=== PATIENT | female | born 1950 | race Caucasian/White ===

== ENCOUNTER 2018-08-04 15:28 | Emergency (ER) | payer MEDICARE, OTHER ==
--- OUTSIDE RECORDS SUMMARY | 2018-08-04 15:32 | XMS REPORT | Clinical Summary ---
:1950 Author Organization [facility] Address [address] [place] [address] Care Team Providers Name Role Phone Rosanne Primary Care Provider Allergies Active Allergy Reactions Severity Noted Date Comments Iodinated Contrast- Oral And Iv Dye Swelling High 08/27/2016 Morpholine Analogues Swelling High 08/27/2016 Medications Medication Sig Dispensed Refills Start Date End Date Status lisinopril Take 10 mg by 0 Active (PRINIVIL,ZESTRIL) 10 mouth daily. MG tablet albuterol (VOSPIRE ER) Take 8 mg by mouth 0 Active 8 MG 12 hr tablet every 12 (twelve) hours. traMADol (ULTRAM) 50 Take 1 tablet (50 10 tablet 0 08/27/2016 Active mg tablet mg total) by mouth every 6 (six) hours as needed for Pain (WARNING CAUSES SEDATION) for up to 10 doses. Active Problems Not on file Social History Tobacco Use Types Packs/Day Years Used Date Current Every Day Smoker Alcohol Use Drinks/Week oz/Week Comments No Sex Assigned at Date Recorded Not on file Job Start Date Occupation Industry Not on file Not on file Not on file Travel History Travel Start Travel End No recent travel history available. Last Filed Vital Signs Not on file Plan of Treatment Not on file Results Not on fileafter 08/03/2017 Insurance Payer Benefit Plan / Group Subscriber ID Type Phone Address MEDICARE MEDICARE PART B xxxxxxxxxx Medicare [employer] MEDICAID MEDICAID [employer] xxxxxxxxx MEDICAID MEDICAID [facility] xxxxxxxxx Medicaid (Home) [place] [address]
--- OUTSIDE RECORDS SUMMARY | 2018-08-04 15:32 | XMS REPORT | Clinical Summary ---
:1950 Author Organization [facility] Address [address] [place] [id number] Care Team Providers Name Role Phone Charleen Young MD Primary Care Provider Allergies Active Allergy Reactions Severity Noted Date Comments Iodinated Contrast- Other (See Comments) High Childhood Allergy - Oral And Iv Dye Unknown Reaction Iodine Itching Low 06/16/2005 IV only Morphine Itching Medium 05/14/2016 And swelling in injection site Morpholine Analogues Swelling High 08/27/2016 Medications Medication Sig Dispensed Refills Start End Status Date Date tiotropium (SPIRIVA) Place 1 puff (1 20 capsule 1 06/09/19 Active 18 mcg per inhalation capsule total) 19 capsule into inhaler and inhale once daily. budesonide-formoterol Inhale 2 puffs 2 1 Inhaler 1 06/09/19 Active (SYMBICORT) 160-4.5 (two) times a 19 mcg/actuation inhaler day. gabapentin (NEURONTIN) Take 1 capsule 90 capsule 11 07/08/192 Active 300 mg (300 mg total) 19 020 capsuleIndications: by mouth 3 Chronic pain syndrome (three) times a day. lisinopril Take 1 tablet 360 tablet 0 07/08/1907/06/2 Active (PRINIVIL,ZESTRIL) 20 (20 mg total) by 19 020 mg tablet mouth every morning. omeprazole (PriLOSEC) Take 2 capsules 60 capsule 2 07/08/192 Active 20 MG capsule (40 mg total) by 19 019 mouth daily for 60 days. mirtazapine (REMERON) Take 1 tablet 60 tablet 0 07/08/1909/05/2 Active 15 MG tablet (15 mg total) by 19 019 mouth nightly for 60 days. calcium Chew 1 tablet 60 tablet 2 07/08/19 Active carbonate-vitamin D3 daily for 60 19 019 600 mg (1,500 mg)-800 days. unit tablet,chewable nebulizer and 1 Device as 1 each 0 07/19/19 Active compressor (PORTABLE needed (copd 19 NEBULIZER SYSTEM) exacerbation). device ipratropium-albuterol Take 3 mL by 27 mL 4 07/29/19 Active (DUO-NEB) 0.5-2.5 mg/3 nebulization 4 19 019 mL nebulizer (four) times a day as needed for wheezing or shortness of breath for up to 14 days. lisinopril Take 10 mg by 0 Discontinued (PRINIVIL,ZESTRIL) 10 mouth every 018 mg tablet morning. budesonide-formoterol Inhale 2 puffs 0 04/06/20 Discontinued (SYMBICORT) 160-4.5 as needed. 17 018 mcg/actuation inhaler gabapentin (NEURONTIN) Take 1 capsule 90 capsule 11 06/18/19 Discontinued 300 mg (300 mg total) 18 018 capsuleIndications: by mouth 3 Chronic pain syndrome (three) times a day. FLUoxetine (PROzac) 20 Take 2 capsules 60 capsule 11 06/18/19 Discontinued MG capsuleIndications: (40 mg total) by 18 018 Anxiety mouth daily. calcium Take 1 tablet by 60 tablet 11 06/19/19 Discontinued carbonate-vitamin D3 mouth 2 (two) 18 018 (OYSTER SHELL times a day with CALCIUM-VIT D3) 500 meals. mg-200 unit per tablet tiotropium (SPIRIVA) Place 1 capsule 0 Discontinued 18 mcg per inhalation into inhaler and 018 capsule inhale once daily. potassium chloride 20 Take 20 mEq by 0 Discontinued mEq tablet extended mouth daily. 018 release FLUoxetine (PROzac) 20 Take 2 capsules 60 capsule 11 08/13/19 Discontinued MG capsuleIndications: (40 mg total) by 18 018 Anxiety mouth daily. tiotropium (SPIRIVA) Place 1 puff (1 20 capsule 1 08/13/19 Discontinued 18 mcg per inhalation capsule total) 18 018 capsule into inhaler and inhale once daily. lisinopril Take 1 tablet 90 tablet 1 08/13/19 Discontinued (PRINIVIL,ZESTRIL) 10 (10 mg total) by 18 018 mg tablet mouth every morning. budesonide-formoterol Inhale 2 puffs 2 1 Inhaler 1 08/13/19 Discontinued (SYMBICORT) 160-4.5 (two) times a 18 018 mcg/actuation inhaler day. nicotine (NICODERM CQ) Place 1 patch on 30 patch 0 08/13/19 21 mg/24 hr the skin daily 18 018 for 30 days. HYDROcodone-acetaminop Take 1 tablet by 30 tablet 0 08/13/19 hen (NORCO) 5-325 mg mouth every 8 18 018 per tablet (eight) hours as needed for moderate pain for up to 10 days. Max Daily Amount: 3 tablets traZODone (DESYREL) 50 Take 1 tablet 30 tablet 0 08/13/19 MG tablet (50 mg total) by 18 018 mouth nightly for 30 days. gabapentin (NEURONTIN) Take 1 capsule 90 capsule 11 09/24/19 Discontinued 300 mg (300 mg total) 18 019 capsuleIndications: by mouth 3 Chronic pain syndrome (three) times a day. budesonide-formoterol Inhale 2 puffs 2 0 Discontinued (SYMBICORT) 160-4.5 (two) times a 018 mcg/actuation inhaler day. amLODIPine (NORVASC) 5 Take 1 tablet (5 30 tablet 0 12/07/19 Discontinued mg tablet mg total) by 18 018 mouth daily for 30 days. aspirin 325 MG tablet Take 0.5 tablets 15 tablet 0 12/07/19 (162 mg total) 18 018 by mouth daily for 30 days. atorvastatin (LIPITOR) Take 1 tablet 30 tablet 0 12/07/19 Discontinued 10 MG tablet (10 mg total) by 18 018 mouth nightly for 30 days. ferrous sulfate 325 Take 1 tablet 60 tablet 0 12/07/19 Discontinued (65 FE) MG tablet (325 mg total) 18 018 by mouth 2 (two) times a day with meals for 30 days. fluconazole (DIFLUCAN) Take 1 tablet 12 tablet 0 12/07/19 Discontinued 100 MG tablet (100 mg total) 18 018 by mouth daily for 12 days. ipratropium-albuterol Take 3 mL by 360 mL 0 12/07/19 Discontinued (DUO-NEB) 0.5-2.5 nebulization 18 018 mg/mL nebulizer every 6 (six) hours as needed for wheezing for up to 30 days. traZODone (DESYREL) 50 Take 1 tablet 30 tablet 0 12/07/19 MG tablet (50 mg total) by 18 018 mouth nightly for 30 days. pantoprazole Take 1 tablet 30 tablet 0 12/07/19 Discontinued (PROTONIX) 20 MG EC (20 mg total) by 18 018 tablet mouth daily for 30 days. methylPREDNISolone follow package 21 tablet 0 12/07/19 Discontinued (MEDROL DOSEPAK) 4 mg directions 18 018 tablet pantoprazole Take 2 tablets 120 tablet 0 12/07/19 Discontinued (PROTONIX) 20 MG EC (40 mg total) by 18 018 tablet mouth 2 (two) times a day for 30 days. budesonide-formoterol Inhale 2 puffs 2 1 Inhaler 1 12/10/19 Discontinued (SYMBICORT) 160-4.5 (two) times a 18 018 mcg/actuation inhaler day. tiotropium (SPIRIVA) Place 1 puff (1 20 capsule 1 12/10/19 Discontinued 18 mcg per inhalation capsule total) 18 018 capsule into inhaler and inhale once daily. amLODIPine (NORVASC) 5 Take 1 tablet (5 30 tablet 0 12/10/19 mg tablet mg total) by 18 018 mouth daily for 30 days. omeprazole (PriLOSEC) Take 1 capsule 30 capsule 1 12/10/19 40 MG capsule (40 mg total) by 18 018 mouth daily for 60 days. methylPREDNISolone follow package 21 tablet 0 12/10/19 (MEDROL DOSEPAK) 4 mg directions 18 018 tablet atorvastatin (LIPITOR) Take 1 tablet 30 tablet 0 12/10/19 20 MG tablet (20 mg total) by 18 018 mouth nightly for 30 days. fluconazole (DIFLUCAN) Take 1 tablet 12 tablet 0 12/10/19 100 MG tablet (100 mg total) 18 018 by mouth daily for 12 days. ferrous sulfate 325 Take 1 tablet 60 tablet 0 12/10/19 (65 FE) MG tablet (325 mg total) 18 018 by mouth 2 (two) times a day with meals for 30 days. lisinopril Take 1 tablet 360 tablet 0 12/10/19 Discontinued (PRINIVIL,ZESTRIL) 20 (20 mg total) by 18 019 mg tablet mouth every morning. lidocaine (LIDODERM) 5 Place 1 patch on 30 patch 0 12/10/19 % the skin daily 18 018 for 30 days. Remove & Discard patch within 12 hours or as directed by MD ipratropium-albuterol Take 3 mL by 360 mL 0 12/10/19 (DUO-NEB) 0.5-2.5 nebulization 18 018 mg/mL nebulizer every 6 (six) hours as needed for wheezing for up to 30 days. lisinopril TAKE 1 TABLET BY 90 tablet 1 02/19/20 Discontinued (PRINIVIL,ZESTRIL) 10 MOUTH ONCE DAILY 18 019 mg tablet IN THE MORNING tiotropium (SPIRIVA) Place 1 puff (1 20 capsule 1 02/28/20 Discontinued 18 mcg per inhalation capsule total) 18 019 capsule into inhaler and inhale once daily. budesonide-formoterol Inhale 2 puffs 2 1 Inhaler 1 02/28/20 Discontinued (SYMBICORT) 160-4.5 (two) times a 18 019 mcg/actuation inhaler day. esomeprazole (NexIUM) Take 1 capsule 30 capsule 11 06/09/19 Discontinued 40 MG capsule (40 mg total) by 19 019 mouth daily before breakfast. acetaminophen-codeine Take 1 tablet by 20 tablet 0 06/09/19 (TYLENOL WITH CODEINE mouth every 4 19 019 #3) 300-30 mg per (four) hours as tablet needed for moderate pain for up to 7 days. budesonide-formoterol Inhale 2 puffs 2 1 Inhaler 1 06/09/19 Discontinued (SYMBICORT) 160-4.5 (two) times a 19 019 mcg/actuation inhaler day. esomeprazole (NexIUM) Take 1 capsule 30 capsule 11 06/09/19 Discontinued 40 MG capsule (40 mg total) by 019 mouth daily before breakfast. omeprazole (PriLOSEC) Take 2 capsules 60 capsule 2 06/09/19 Discontinued 20 MG capsule (40 mg total) by 019 mouth daily for 60 days. fluconazole (DIFLUCAN) Take 1 tablet 7 tablet 0 06/09/19 150 MG tablet (150 mg total) 019 by mouth daily for 7 days. gabapentin (NEURONTIN) Take 1 capsule 90 capsule 11 06/11/19 Discontinued 300 mg (300 mg total) capsuleIndications: by mouth 3 Chronic pain syndrome (three) times a day. ibuprofen Take 800 mg by 0 04/11/20 Discontinued (ADVIL,MOTRIN) 800 MG mouth. 18 019 tablet ibuprofen TK 1 T PO Q 0 04/12/20 Discontinued (ADVIL,MOTRIN) 800 MG EIGHT HOURS 18 019 tablet traMADol (ULTRAM) 50 Take 50 mg by 0 08/28/19 Discontinued mg tablet mouth. 17 019 traMADol (ULTRAM) 50 TK 1 T PO EVERY 0 04/12/20 Discontinued mg tablet 6 HOURS 18 019 NEEDED FOR PAIN budesonide-formoterol Inhale 2 puffs. 0 04/06/20 Discontinued (SYMBICORT) 160-4.5 17 019 mcg/actuation inhaler ipratropium-albuterol Take 3 mL by 27 mL 1 07/08/19 Discontinued (DUO-NEB) 0.5-2.5 nebulization 4 19 019 mg/mL nebulizer (four) times a day as needed for wheezing or shortness of breath for up to 14 days. fexofenadine (JOSE) Take 2 tablets 14 tablet 0 07/08/19 60 MG tablet (120 mg total) 19 019 by mouth daily for 7 days. ipratropium-albuterol Take 3 mL by 27 mL 1 07/22/19 Discontinued (DUO-NEB) 0.5-2.5 mg/3 nebulization 4 19 019 mL nebulizer (four) times a day as needed for wheezing or shortness of breath for up to 14 days. ipratropium-albuterol Take 3 mL by 27 mL 1 07/22/19 Discontinued (DUO-NEB) 0.5-2.5 mg/3 nebulization 4 19 019 mL nebulizer (four) times a day as needed for wheezing or shortness of breath for up to 14 days. ipratropium-albuterol Take 3 mL by 27 mL 1 07/22/19 Discontinued (DUO-NEB) 0.5-2.5 mg/3 nebulization 4 19 019 mL nebulizer (four) times a day as needed for wheezing or shortness of breath for up to 14 days. Hospital, Clinic, Ordered Dose Route Frequency Start Date End Date Status or Other Facility Administered Medication ipratropium 0.5 mg nebu every 6 hours 06/09/2018 Discontinued (ATROVENT) 0.02 % PRN 9 nebulizer solution 0.5 mgIndications: Chronic obstructive pulmonary disease, unspecified COPD type (HCC) Active Problems Problem Noted Date COPD exacerbation 12/04/2017 Microcytic anemia 11/29/2017 Overview: Added automatically from request for surgery [id number] Chronic bronchitis 06/17/2017 Essential hypertension 06/17/2017 Chronic pain syndrome 06/17/2017 Pure hypercholesterolemia 06/17/2017 Anxiety 06/17/2017 Tobacco use 06/17/2017 Other chest pain 06/10/2017 Calculus of ureter 03/11/2017 Overview: Overview: Added automatically from request for surgery [id number] Shoulder injury 02/03/2017 Overdose 06/03/2016 Back pain 01/26/2016 Closed fracture of nasal bone with routine healing 01/23/2016 Closed fracture of orbital floor 01/23/2016 Fracture of spine, lumbar, without spinal cord injury, closed 01/23/2016 UTI (urinary tract infection) 09/07/2015 Fracture of humerus 06/25/2005 Overview: Overview: right ICD10 Diagnosis Term Long Line [employer] Utility Osteoporosis 06/25/2005 Overview: Overview: ICD10 Diagnosis Term Long Line [employer]ster Utility 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/2005 Overview: Overview: Left prosthesis Anemia 06/25/2005 Overview: Overview: ICD10 Diagnosis Term Long Line [employer] Utility Osteoarthritis of shoulder 06/16/2005 Overview: Overview: ICD10 Diagnosis Term Long Line [employer] Utility Chest pain 06/16/2005 Overview: Overview: ICD10 Diagnosis Term Long Line [employer] Utility Resolved Problems Problem Noted Date Resolved Date Chest pain in adult 11/29/2017 12/06/2017 Encounters Date Type Specialty Care Team Description 07/28/2018 Orders Only Internal Medicine Charleen Young MD 07/21/2018 Orders Only Internal Medicine Charleen Young MD 07/18/2018 Orders Only Internal Medicine Hector, Chronic obstructive Charleen Randall, pulmonary disease with acute exacerbation (HCC) (Primary Dx) 07/15/2018 Telephone Endocrinology Fadumo Jennings 07/07/2018 Lab Lab Se[facility] Guajardo Fatigue, unspecified MD Nelida type 07/07/2018 Office Visit Internal Medicine Hector, Need for pneumococcal vaccine (Primary Dx); Charleen Randall, Chronic pain syndrome; Age-related osteoporosis without current pathological fracture; Fatigue, unspecified type; Mixed simple and mucopurulent chronic bronchitis (HCC); Primary osteoarthritis involving multiple joints; Recurrent falls 06/11/2018 Orders Only Internal Medicine Lucia Mccabe, Chronic pain syndrome CT 06/09/2018 Office Visit Internal Medicine Hector, Chest pain, unspecified type (Primary Dx); Charleen Randall, Gastritis without bleeding, unspecified chronicity, unspecified gastritis type; Anemia, unspecified type; Benign essential HTN; Thyroid disorder screen; Chronic obstructive pulmonary disease, unspecified COPD type (HCC) 02/27/2018 Orders Only Internal Medicine Charleen Young MD 02/25/2018 Telephone Internal Medicine Dyana Gloria MA 02/18/2018 Refill Internal Medicine Charleen Young MD 02/17/2018 Telephone Internal Medicine Cezar Llamas MA 01/31/2018 Telephone Internal Medicine Dyana Gloria MA 12/13/2017 Lab Lab Se[facility] Gu[facility]ardo Antidepressant type MD Nelida abuse, continuous (Primary Dx) 12/11/2017 Telephone Gastroenterology Aster Alfaro, WINDY 12/10/2017 Telephone Internal Medicine Cezar Llamas MA 12/09/2017 Office Visit Internal Medicine Hector, Chronic pain syndrome ( Primary Dx); Charleen Randall, Pure hypercholesterolemia; Anxiety; Essential hypertension; COPD exacerbation 12/09/2017 Documentation Internal Medicine Cezar Llamas MA 12/03/2017 Anesthesia Event Gastroenterology Shelli Ferreira, [employer]AND [employer]NER 12/03/2017 Surgery Gastroenterology Fabian Sarmiento EGD w/ bx and MD germain 11/29/2017 - Hospital Encounter Cardiology Ana Bravo Chest pain in adult (Primary Dx); 12/06/2017 MD Verna COPD exacerbation; Darlene, Palpitation; Deshawn Vigil MD Microcytic anemia 09/23/2017 Office Visit Internal Medicine [place]ector, Polysubstance abuse ( Primary Dx); Charleen Randall, Chronic pain syndrome Noami Salgado MD 08/19/2017 Hospital Encounter Pulmonology Serena Guajardo Chronic bronchitisNelida MD unspecified chronic bronchitis type 08/19/2017 Hospital Encounter Pulmonology Serena Guajardo MD 08/19/2017 Hospital Encounter Pulmonology Serena Guajardo MD 08/19/2017 Hospital Encounter Pulmonology Serena Guajardo Chronic bronchitisNelida MD unspecified chronic bronchitis type 08/16/2017 Documentation Internal Medicine Charleen Young MD 08/16/2017 Telephone Internal Medicine Cezar Llamas MA 08/13/2017 Telephone Internal Medicine Cezar Llamas MA 08/12/2017 Office Visit Internal Medicine [place]ector, Essential hypertension ( Primary Dx); Charleen Randall, Anxiety; Chronic pain syndrome after 08/03/2017 Immunizations Name Dates Previously Given Next Due FLUZONE HIGH-DOSE PF 02/16/2017 Pneumococcal Conjugate 13-Valent 07/07/2018 Pneumococcal Polysaccharide 07/04/2016 Td, Unspecified 01/23/2016 Family History Medical History Relation Name Comments Heart disease Brother Cancer Father Heart disease Mother Cancer Sister Relation Name Status Comments Brother Father Mother Sister Social History Tobacco Use Types Packs/Day Years Used Date Current Every Day Smoker Cigarettes 1 52 Smokeless Tobacco: Never Used Tobacco Cessation: Ready to Quit: No; Counseling Given: No Comments: 1 pack over 3 days Alcohol Use Drinks/Week oz/Week Comments No Sex Assigned at Date Recorded Not on file Job Start Date Occupation Industry Not on file Not on file Not on file Travel History Travel Start Travel End No recent travel history available. Last Filed Vital Signs Vital Sign Reading Time Taken Blood Pressure 135/92 07/07/2018 1:14 PM CDT Pulse 100 07/07/2018 1:14 PM CDT Temperature 36.7 C (98 F) 07/07/2018 1:14 PM CDT Respiratory Rate 18 12/09/2017 2:52 PM CDT Oxygen Saturation 98% 07/07/2018 1:14 PM CDT Inhaled Oxygen Concentration - - Weight 57.6 kg (127 lb) 07/07/2018 1:14 PM CDT Height 160 cm (5' 3") 07/07/2018 1:14 PM CDT Body Mass Index 22.5 07/07/2018 1:14 PM CDT Plan of Treatment Date Type Specialty Care Team Description 09/01/2018 Office Visit Internal Medicine Naomi Chan MD [address] [address] Health Maintenance Due Date Last Done Comments DXA SCAN 1950 BREAST CANCER SCREENING 09/27/2001 COLON CANCER SCREENING 09/27/2001 SHINGLES VACCINES (#1) 09/27/2001 INFLUENZA VACCINE 11/13/2018 02/16/2017 65+ PNEUMOCOCCAL VACCINE (2 of 2 - PPSV23) 07/04/2021 07/07/2018, 07/04/2016 PNEUMOCOCCAL POLYSACCHARIDE VACCINE AGE 65 Completed 07/04/2016 AND OVER Implants Implanted Type Area [employer] Device Shelf Model / Identifier Expiration Serial / Date Lot Stent Uretl S-Flx Kwart Retro-Inject 6fr 24cm - [id number] Peripheral or Right: [employer] 01/31/2020 [id number] / Implanted: Qty: 1 on 06/14/2017 by Octaviano De MD Biliary Stents N/A / [id number] Procedures Procedure Name Priority Date/Time Associated Comments Diagnosis THYROID STIMULATING HORMONE Routine 07/07/2018 Fatigue, Results for 2:04 PM CDT unspecified type this procedure are in the results section. COMPREHENSIVE METABOLIC PANEL Routine 07/07/2018 Fatigue, Results for 2:04 PM CDT unspecified type this procedure are in the results section. CBC WITH PLATELET AND Routine 07/07/2018 Fatigue, Results for DIFFERENTIAL 2:04 PM CDT unspecified type this procedure are in the results section. URINE DRUGS OF ABUSE SCREEN Routine 12/13/2017 Antidepressant Results for 2:35 PM CDT type abuse, this continuous procedure are in the results section. ZZESTIMATED GFR Routine 12/05/2017 Results for 4:00 AM CDT this procedure are in the results section. BASIC METABOLIC PANEL Routine 12/05/2017 Results for 4:00 AM CDT this procedure are in the results section. HC COMPLETE BLD COUNT W/AUTO Routine 12/05/2017 Results for DIFF 3:49 AM CDT this procedure are in the results section. CD 4 SUBSET Routine 12/05/2017 Results for 3:49 AM CDT this procedure are in the results section. HIV-1 RNA, QUALITATIVE TMA Routine 12/05/2017 Results for 3:49 AM CDT this procedure are in the results section. NM LUNG VENTILATION PERFUSION Routine 12/03/2017 Results for 6:14 PM CDT this procedure are in the results section. SURGICAL PATHOLOGY REQUEST Routine 12/03/2017 Results for 9:26 AM CDT this procedure are in the results section. CYTOLOGY (NON-GYNECOLOGICAL) Routine 12/03/2017 Results for REQUEST 8:17 AM CDT this procedure are in the results section. FUNGUS SMEAR Routine 12/03/2017 Results for 8:17 AM CDT this procedure are in the results section. ESOPHAGOGASTRODUODENOSCOPY 12/03/2017 Microcytic anemia (EGD) 8:00 AM CDT Chest pain in adult Special Needs FELLOW-KG XR ABDOMEN 1 VW Routine 12/02/2017 8:48 Results for this PORTABLE PM CDT procedure are in the results section. US ABDOMEN COMPLETE Routine 12/02/2017 4:45 Results for this PM CDT procedure are in the results section. GGT Routine 12/02/2017 1:55 Results for this PM CDT procedure are in the results section. TOTAL IRON BINDING Routine 12/02/2017 1:55 Results for this CAPACITY PM CDT procedure are in the results section. FERRITIN LEVEL Routine 12/02/2017 1:55 Results for this PM CDT procedure are in the results section. HC COMPLETE BLD COUNT Routine 12/02/2017 1:55 Results for this W/AUTO DIFF PM CDT procedure are in the results section. LIPASE LEVEL Routine 12/02/2017 1:55 Results for this PM CDT procedure are in the results section. ZZESTIMATED GFR Routine 12/02/2017 5:32 Results for this AM CDT procedure are in the results section. BASIC METABOLIC PANEL Routine 12/02/2017 5:32 Results for this AM CDT procedure are in the results section. ZZESTIMATED GFR Routine 12/01/2017 5:39 Results for this AM CDT procedure are in the results section. BASIC METABOLIC PANEL Routine 12/01/2017 5:39 Results for this AM CDT procedure are in the results section. NM MYOCARDIAL PERFUSION Routine 11/30/2017 1:40 Results for this STRESS ONLY PM CDT procedure are in the results section. CV STRESS TEST NUCLEAR Routine 11/30/2017 1:40 Results for this CARDIO PM CDT procedure are in the results section. ZZESTIMATED GFR Routine 11/30/2017 6:36 Results for this AM CDT procedure are in the results section. BASIC METABOLIC PANEL Routine 11/30/2017 6:36 Results for this AM CDT procedure are in the results section. TROPONIN Timed 11/30/2017 12:58 Results for this AM CDT procedure are in the results section. TROPONIN Timed 11/29/2017 4:00 Results for this PM CDT procedure are in the results section. URINE DRUGS OF ABUSE Routine 11/29/2017 1:44 Results for this SCREEN PM CDT procedure are in the results section. RESPIRATORY PATHOGEN Routine 11/29/2017 1:44 Results for this PANEL PM CDT procedure are in the results section. ZZESTIMATED GFR STAT 11/29/2017 11:35 Results for this AM CDT procedure are in the results section. B NATRIURETIC PEPTIDE STAT 11/29/2017 11:35 Results for this AM CDT procedure are in the results section. TROPONIN STAT 11/29/2017 11:35 Results for this AM CDT procedure are in the results section. COMPREHENSIVE METABOLIC STAT 11/29/2017 11:35 Results for this PANEL AM CDT procedure are in the results section. PARTIAL THROMBOPLASTIN STAT 11/29/2017 11:35 Results for this TIME (PTT) AM CDT procedure are in the results section. PROTHROMBIN TIME WITH STAT 11/29/2017 11:35 Results for this INR AM CDT procedure are in the results section. HC COMPLETE BLD COUNT STAT 11/29/2017 11:35 Results for this W/AUTO DIFF AM CDT procedure are in the results section. XR CHEST 1 VW PORTABLE STAT 11/29/2017 11:21 Results for this AM CDT procedure are in the results section. ECG 12-LEAD STAT 11/29/2017 10:53 Results for this AM CDT procedure are in the results section. SPIROMETRY PRE AND POST Routine 08/19/2017 12:24 Chronic bronchitis, Results for this BRONCHODILATORS, PM CDT unspecified chronic procedure are in DIFFUSION bronchitis type the results section. after 08/03/2017 Results CBC with platelet and differential (07/07/2018 2:04 PM CDT)Only the most recent of4 resultswithin the time period is included. WBC 4.4 3.8 - 10.8 Thousand/uL [facility] RBC 4.86 3.80 - 5.10 Million/uL [facility] HGB 13.1 11.7 - 15.5 g/dL [facility] HCT 40.5 35.0 - 45.0 % [facility] MCV 83.3 80.0 - 100.[address] [facility] MCH 27.0 27.0 - 33.[address] [facility] MCHC 32.3 32.0 - 36.0 g/dL [facility] RDW 14.3 11.0 - 15.0 % [facility] Platelet count 193 140 - 400 Thousand/uL [facility] MPV 9.8 7.5 - 12.5 fL [facility] Neutrophils, absolute 2,028 1,500 - 7,800 cells/uL [facility] Lymphocytes, absolute 1,795 850 - 3,900 cells/uL [facility] Monocytes, absolute 453 200 - 950 cells/uL [facility] Eosinophils, absolute 92 15 - 500 cells/uL [facility] Basophils, absolute 31 0 - 200 cells/uL [facility] Neutrophils 46.1 % [facility] Lymphocytes 40.8 % [facility] Monocytes 10.3 % [facility] Eosinophils 2.1 % [facility] Basophils + RC 0.7 % [facility] Specimen Blood Resulting Agency Comment Performing Organization Information: Site ID: [id number] Name: [facility] Address: [address] [place] [id number] Director: Tameka Carlin Performing Organization Address City/State/[facility] Phone Number [employer] [facility] [address] [place] [address] Thyroid stimulating hormone (07/07/2018 2:04 PM CDT) TSH 1.16 0.40 - 4.50 mIU/L [facility] Specimen Blood Resulting Agency Comment Performing Organization Information: Site ID: [id number] Name: [facility] Address: [address] [place] [id number] Director: Tameka Carlin Performing Organization Address City/[facility] [employer] Phone Number [employer] [place] [address] [place] [address] Comprehensive metabolic panel (07/07/2018 2:04 PM CDT)Only the most recent of2 resultswithin the time period is included. Glucose 108 (H) 65 - 99 mg/dL [facility] Comment: [facility] Fasting reference interval For someone without known diabetes, a glucose value between 100 and 125 mg/dL is consistent with prediabetes and should be confirmed with a follow-up test. BUN, whole blood 18 7 - 25 mg/dL [facility] Creatinine 1.03 (H) 0.50 - 0.99 [facility] Comment: mg/dL [place] For patients >49 years of age, the reference limit for Creatinine is approximately 13% higher for people identified as -Cuban. EGFR Non-Afr. Cuban 57 (L) > OR=60 [facility] mL/min/1.73m2 [place] EGFR 66 > OR=60 [facility] mL/min/1.73m2 [place] BUN/creatinine ratio 17 6 - 22 (calc) [facility] [place] Sodium 140 135 - 146 mmol/L [facility] [place] Potassium 4.2 3.5 - 5.3 mmol/L [facility] [place] Chloride 102 98 - 110 mmol/L [facility] [place] CO2 26 20 - 32 mmol/L [facility] [place] Calcium 9.5 8.6 - 10.4 mg/dL [facility] [place] Protein 7.4 6.1 - 8.1 g/dL [facility] [place] Albumin, S 4.0 3.6 - 5.1 g/dL [facility] Globulin, total 3.4 1.9 - 3.7 g/dL [facility] (calc) [place] Albumin/globulin ratio 1.2 1.0 - 2.5 (calc) [facility] Total bilirubin 0.4 0.2 - 1.2 mg/dL [facility] Alkaline phosphatase 167 (H) 33 - 130 U/L [facility] AST 33 10 - 35 U/L [facility] ALT 22 6 - 29 U/L [facility] Specimen Blood Resulting Agency Comment Performing Organization Information: Site ID: [id number] Name: Compliance [facility] Lab Address: [address] [place] [id number] Director: Tameka Carlin Performing Organization Address City/[facility] Phone Number [facility] [address] [place] [phone] Urine drugs of abuse screen (12/13/2017 2:35 PM CDT)Only the most recent of2 resultswithin the time period is included. Amphetamine screen, urine Negative [facility] DEPARTMENT OF PATHOLOGY AND GENOMIC MEDICINE Barbiturate screen, urine Negative [facility] DEPARTMENT OF PATHOLOGY AND GENOMIC MEDICINE Benzodiazepine screen, Positive (A) [facility] DEPARTMENT OF urine PATHOLOGY AND GENOMIC MEDICINE Cannabinoid screen, urine Negative [facility] DEPARTMENT OF PATHOLOGY AND GENOMIC MEDICINE Cocaine screen, urine Negative [facility] DEPARTMENT OF PATHOLOGY AND GENOMIC MEDICINE Methadone metabolite Negative [facility] DEPARTMENT OF (EDDP), urine PATHOLOGY AND GENOMIC MEDICINE Opiates screen, urine Negative [facility] DEPARTMENT OF PATHOLOGY AND GENOMIC MEDICINE Oxycodone screen, urine Negative [facility] DEPARTMENT OF PATHOLOGY AND GENOMIC MEDICINE Phencyclidine screen, urine Negative [facility] DEPARTMENT OF PATHOLOGY AND GENOMIC MEDICINE Tricyclic screen, urine Negative [facility] DEPARTMENT OF Comment: PATHOLOGY AND GENOMIC Drug screen minimum concentration of detectability MEDICINE Paapipskybjv8424 ng/mL Barbiturates 200 ng/mL Piexjtwrqqckkyw173 ng/mL Isnyawj142 ng/mL Tkxotiiki964 ng/mL Fxkewvc685 ng/mL Gqbtlfzdt414 ng/mL Phencyclidine 25 ng/mL Qblqiivyfckv55 ng/mL Xugkzimikh4724 ng/mL Negative test results indicates presumptive evidence of lack of clinically significant drug concentration in this urine specimen. Positive test results are presumptive evidence of clinically significant drug concentration in this urine specimen. Testing performed for medical purposes only. Specimen Urine Performing Organization Address City/[facility] Phone Number [facility] DEPARTMENT OF PATHOLOGY AND [address] [place] [phone] [employer] MEDICINE Estimated GFR (12/05/2017 4:00 AM CDT)Only the most recent of5 resultswithin the time period is included. GFR Non Af Amer 63 mL/min/1.73 m2 [facility] DEPARTMENT OF PATHOLOGY AND GENOMIC MEDICINE GFR Af Amer 76 mL/min/1.73 m2 [facility] DEPARTMENT OF Comment: PATHOLOGY AND GENOMIC Chronic kidney disease: <60 mL/min/1.73m2 MEDICINE Kidney failure: <15 mL/min/1.73m2 The estimated GFR is calculated from the IDMS-traceable Modification of Diet in Renal Disease Equation. The accuracy of the calculation is poor when the creatinine is normal. Calculated values >90 mL/min/1.73m2 are not reported. This equation has not been validated in children (<18 years), women, the elderly (>70 years), or ethnic groups other than Caucasians and Americans. Specimen Plasma specimen Performing Organization Address City/[facility] Phone Number [facility] DEPARTMENT OF PATHOLOGY AND [address] [place] [address] Basic metabolic panel (12/05/2017 4:00 AM CDT)Only the most recent of4 resultswithin the time period is included. Sodium 138 135 - 148 mEq/L [facility] DEPARTMENT OF PATHOLOGY AND GENOMIC MEDICINE Potassium 5.1 (H) 3.5 - 5.0 mEq/L [facility] DEPARTMENT OF PATHOLOGY AND GENOMIC MEDICINE Chloride 100 98 - 112 mEq/L [facility] DEPARTMENT OF PATHOLOGY AND GENOMIC MEDICINE CO2 24 24 - 31 mEq/L [facility] DEPARTMENT OF PATHOLOGY AND GENOMIC MEDICINE Anion gap 14@ANIO 7 - 15 mEq/L [facility] DEPARTMENT OF PATHOLOGY AND GENOMIC MEDICINE BUN 35 (H) 8 - 23 mg/dL [facility] DEPARTMENT OF PATHOLOGY AND GENOMIC MEDICINE Creatinine 0.9 0.5 - 0.9 mg/dL [facility] DEPARTMENT OF PATHOLOGY AND GENOMIC MEDICINE Glucose 253 (H) 65 - 99 mg/dL [facility] DEPARTMENT OF PATHOLOGY AND GENOMIC MEDICINE Calcium 8.8 8.8 - 10.2 mg/dL [facility] DEPARTMENT OF PATHOLOGY AND GENOMIC MEDICINE Specimen Plasma specimen Performing Organization Address City/[facility] Facilitycode Phone Number [facility] PATHOLOGY AND [address] [place] [phone] [facility] HIV-1 RNA, qualitative TMA (12/05/2017 3:49 AM CDT) HIV-1 RNA, qualitative Nonreactive Nonreactive [facility] DEPARTMENT OF TMA PATHOLOGY AND GENOMIC MEDICINE HIV-1 RNA, qualitative See link below for PDF [facility] DEPARTMENT OF TMA Lab ReportComment: Case PATHOLOGY AND GENOMIC Number: [id number] MEDICINE Specimen Plasma specimen Performing Organization Address City/State/Zipcode Phone Number [facility] DEPARTMENT OF PATHOLOGY AND [address] [place] [address] GENOMIC MEDICINE CD 4 subset (12/05/2017 3:49 AM CDT) CD4% 40 37 - 57 % [facility] DEPARTMENT OF PATHOLOGY AND GENOMIC MEDICINE CD4 absolute count 368 (L) 488 - 1,340 ul [facility] DEPARTMENT OF PATHOLOGY AND GENOMIC MEDICINE CD4 subset See link below for PDF [facility] DEPARTMENT OF PATHOLOGY Lab ReportComment: Case AND GENOMIC MEDICINE Number: [id number] Specimen Blood Performing Organization Address City/State/Zipcode Phone Number [facility] DEPARTMENT OF PATHOLOGY AND [address] [place] [address] [facility] NM Lung Ventilation Perfusion (12/03/2017 6:14 PM CDT) Narrative Performed At PROCEDURE:NM LUNG VENTILATION PERFUSION [facility] INDICATION:Shortness of breath. COMPARISON:Chest x-ray dated 11/29/2017. TECHNIQUE:Planar ventilation images were acquired after the inhalation of 15 mCi of Xe-133 gas. Planar perfusion images were acquired after the IV administration of 5 mCi of Tc-99m MAA. FINDINGS:Ventilation images demonstrate decreased ventilation to the lung periphery. Washout images demonstrate no gas trapping.Perfusion images demonstrate decreased perfusion to the lung periphery, matching the ventilation images.No mismatched defects. IMPRESSION: 1.Low to low intermediate probability for acute PE. 2.Correlation with a more current chest x-ray is suggested.If new infiltrates are present, scan findings could reflect lung infarction.If no new infiltrates are present, findings could reflect sequela of chronic PE. [facility]-[id number] Procedure Note Interface, Radiology Results Incoming - 12/03/2017 7:12 PM CDT PROCEDURE: NM LUNG VENTILATION PERFUSION INDICATION: Shortness of breath. COMPARISON: Chest x-ray dated 11/29/2017. TECHNIQUE: Planar ventilation images were acquired after the inhalation of 15 mCi of Xe-133 gas. Planar perfusion images were acquired after the IV administration of 5 mCi of Tc-99m MAA. FINDINGS: Ventilation images demonstrate decreased ventilation to the lung periphery. Washout images demonstrate no gas trapping. Perfusion images demonstrate decreased perfusion to the lung periphery, matching the ventilation images. No mismatched defects. IMPRESSION: 1. Low to low intermediate probability for acute PE. 2. Correlation with a more current chest x-ray is suggested. If new infiltrates are present, scan findings could reflect lung infarction. If no new infiltrates are present, findings could reflect sequela of chronic PE. [facility]-[id number] Performing Organization Address City/[facility]/[place] [address] Surgical pathology request (12/03/2017 9:26 AM CDT) [facility] DEPARTMENT OF PATHOLOGY AND GENOMIC MEDICINE Surgical pathology report See link below for PDF [facility] DEPARTMENT OF Lab Report PATHOLOGY AND GENOMIC MEDICINE Result status This is Final Report [facility] DEPARTMENT OF for [id number] PATHOLOGY AND GENOMIC MEDICINE Performing Organization Address [facility] Phone Number [facility] DEPARTMENT OF PATHOLOGY AND [address] [place] [address] GENOMIC MEDICINE Fungus smear (12/03/2017 8:17 AM CDT) Fungus smear Many budding yeast with pseudohyphae seen [facility] DEPARTMENT OF PATHOLOGY Comment: AND GENOMIC MEDICINE Specimen Information Specimen Source: esophageal brush Specimen Site: esophageal brushing Specimen Esophageal brush Performing Organization Address [facility] Phone Number [facility] DEPARTMENT OF PATHOLOGY AND [address] [place] [address] GENOMIC MEDICINE Cytology (non-gynecological) request (12/03/2017 8:17 AM CDT) [facility] DEPARTMENT OF PATHOLOGY AND GENOMIC MEDICINE Cytology See link below for PDF [facility] DEPARTMENT OF (non-gynecological) report Lab Report PATHOLOGY AND GENOMIC MEDICINE Result status This is Final Report [facility] DEPARTMENT for [id number] PATHOLOGY AND GENOMIC MEDICINE Performing Organization Address [facility] Facility[facility] Phone Number [facility] DEPARTMENT OF PATHOLOGY AND [address] [place] [address] GENOMIC MEDICINE XR Abdomen 1 Vw Portable (12/02/2017 8:48 PM CDT) Narrative Performed At EXAMINATION:XR ABDOMEN 1 VW PORTABLE [facility] CLINICAL HISTORY:evaluate for constipation COMPARISON:Abdominal radiograph dated 07/26/2017 IMPRESSION: A moderate amount of stool is seen throughout the colon, suggestive of constipation. There is no gastrointestinal distention to suggest obstruction. There is no free intraperitoneal air. There is mild dextroconvex curvature of the lumbar spine. There is no acute or suspicious osseous abnormality. The visualized lung bases are free of acute disease. [facility]-[id number] Procedure Note Interface, Radiology Results Incoming - 12/02/2017 8:58 PM CDT EXAMINATION: XR ABDOMEN 1 VW PORTABLE CLINICAL HISTORY: evaluate for constipation COMPARISON: Abdominal radiograph dated 07/26/2017 IMPRESSION: A moderate amount of stool is seen throughout the colon, suggestive of constipation. There is no gastrointestinal distention to suggest obstruction. There is no free intraperitoneal air. There is mild dextroconvex curvature of the lumbar spine. There is no acute or suspicious osseous abnormality. The visualized lung bases are free of acute disease. [facility]-[id number] Performing Organization Address City/State/Zipcode Phone Number [facility] [address] [place] [address] US Abdomen Complete (12/02/2017 4:45 PM CDT) Narrative Performed At Abdominal ultrasound, 12/02/2017 6:40 PM [facility] Clinical history: Kidney stones. Comparison: None Technique: Grayscale and color Doppler ultrasound abdomen Findings: Vasculature: Imaged portions of the abdominal aorta are of normal caliber. The inferior vena cava is obscured by bowel gas. Pancreas:Normal pancreatic head and body. The tail is obscured by bowel gas. Liver: Right liver span: 17.2 cm. Increased parenchymal echogenicity with a smooth liver margin. Portal vein diameter: 1.5 cm; normal flow direction. Gallbladder: Contracted without evidence of stone or sludge. Wall thickness: 0.2 cm. Common bile duct diameter: 0.5 cm Right kidney: 10 x 3.9 x 4.6 cm At least 3 calcified stones measuring between 0.5 and 0.7 cm. Otherwise, normal kidney. Left kidney: 10.2 x 3.5 x 4.4 cm at least 2 calcified stones measuring between 0.4 and 0.5 cm. Otherwise, normal kidney. Spleen: Span: 12.6 cm. Impression: 1.Bilateral nonobstructive nephrolithiasis with stones measuring between 0.4 and 0.7 cm. 2.Echogenic liver consistent with steatosis. Portal vein enlargement and spleen prominent suggesting early portal hypertension. 3.Gallbladder is contracted, but otherwise unremarkable. Procedure Note Interface, Radiology Results Incoming - 12/02/2017 6:46 PM CDT Abdominal ultrasound, 12/02/2017 6:40 PM Clinical history: Kidney stones. Comparison: None Technique: Grayscale and color Doppler ultrasound abdomen Findings: Vasculature: Imaged portions of the abdominal aorta are of normal caliber. The inferior vena cava is obscured by bowel gas. Pancreas:Normal pancreatic head and body. The tail is obscured by bowel gas. Liver: Right liver span: 17.2 cm. Increased parenchymal echogenicity with a smooth liver margin. Portal vein diameter: 1.5 cm; normal flow direction. Gallbladder: Contracted without evidence of stone or sludge. Wall thickness: 0.2 cm. Common bile duct diameter: 0.5 cm Right kidney: 10 x 3.9 x 4.6 cm At least 3 calcified stones measuring between 0.5 and 0.7 cm. Otherwise, normal kidney. Left kidney: 10.2 x 3.5 x 4.4 cm at least 2 calcified stones measuring between 0.4 and 0.5 cm. Otherwise, normal kidney. Spleen: Span: 12.6 cm. Impression: 1. Bilateral nonobstructive nephrolithiasis with stones measuring between 0.4 and 0.7 cm. 2. Echogenic liver consistent with steatosis. Portal vein enlargement and spleen prominent suggesting early portal hypertension. 3. Gallbladder is contracted, but otherwise unremarkable. Performing Organization Address [facility] Phone Number [facility] [address] [place] [phone] Total iron binding capacity (12/02/2017 1:55 PM CDT) Iron level 18 (L) 37 - 145 ug/dL [facility] DEPARTMENT OF PATHOLOGY AND GENOMIC MEDICINE Iron binding capacity 447 (H) 200 - 400 ug/dL [facility] DEPARTMENT OF PATHOLOGY AND GENOMIC MEDICINE % Saturation 4.0 (L) 15.0 - 38.0 % [facility] DEPARTMENT OF PATHOLOGY AND GENOMIC MEDICINE Specimen Plasma specimen Performing Organization Address City/[facility]/Zipcode Phone Number [facility] DEPARTMENT OF PATHOLOGY AND [address] [place] [phone] [facility] Lipase level (12/02/2017 1:55 PM CDT) Lipase 50 13 - 60 U/L [facility] DEPARTMENT OF PATHOLOGY AND GENOMIC MEDICINE Specimen Plasma specimen Performing Organization Address [facility] Phone Number [facility] DEPARTMENT OF PATHOLOGY AND [address] [place] [phone] [facility] GGT (12/02/2017 1:55 PM CDT) GGT 43 (H) 0 - 39 U/L [facility] DEPARTMENT OF PATHOLOGY AND [facility] MEDICINE Specimen Plasma specimen Performing Organization Address [facility] Phone Number [facility] DEPARTMENT OF PATHOLOGY AND [address] [place] [address] Ferritin level (12/02/2017 1:55 PM CDT) Ferritin level 38 13 - 150 ng/mL [facility] DEPARTMENT OF PATHOLOGY AND [facility] Specimen Plasma specimen Performing Organization Address [facility] Phone Number [facility] DEPARTMENT OF PATHOLOGY AND [address] [place] [address] Cv stress test (11/30/2017 1:40 PM CDT) Resting HR 66 [facility] Resting BP 166 [facility] Peak MET Achieved 1.0 [facility] Protocol Name REGRODERICKO [facility] Time in Exercise Phase 00:01:00 [facility] Max Systolic BP 166 [facility] Max Diastolic BP 88 [facility] Max Heart Rate 93 [facility] Max Predicted Heart Rate 154 [facility] Target HR Formula (220 - Age)*100% [facility] Test Indication chest pain [facility] Arrhy During Ex [facility] ECG Interp Before EX [facility] ECG Interp During Ex [facility] Ex Summary Comment [facility] Overall HR Response to [facility] Exercise Overall BP Response To [facility] Exercise Reason for Termination [facility] Stress Test Impression -Waveform interpreted in report [facility] associated with image study. No interpretation is provided as part of this Stress ECG report.-Electronically Signed By Leonardo GILES, Dwayne Alanis ([id number]), art editor Joshua Calvillo ([id number]) on 11/30/2017 3:43:12 PM Performing Organization Address [facility] Phone Number [facility] [address] [place] [address] Nm myocardial perfusion (11/30/2017 1:40 PM CDT) Narrative Performed At [facility] Nuclear Cardiology and Cardiac CT [address] [place] [address] Myocardial Perfusion Imaging Report Stress ECG tracings are available in MUSE, EPIC and CV Web All ECG interpretations are included in this report Pat.Name:GAYLE WALLACE [facility].ID:[id number] .Date: 11/30/2017 Refer.MD:ANA BRAVO Exam Time: 12:53:00 PM Study Type:Myocardial Perfusion Imaging Height:64inBSA: 1.6 m2 DOBAge:1950,67Y Sex: FEMALE BP:166/88HR: 63 bpm HCT: 36.3 %Nuclear Tech:Julio Lux [facility] Pat. Stat.:Inpatient Room:[facility] Nuclear Event ID:[id number] Order ID:[id number] Reason for Study:Chest pain, unspecified, Possible ACS History / Clinical:COPD Procedures:Single Day Stress / Rest Risk Factors:COPD Clinical Symptoms:Regadenoson Physical Exam:S1, S2 Surgery: Serum K+ Date,4.2-11/30/17/, Troponin I Date, 1)11/30/17-Negative/ 2)11/29/17-Negative/ 3)11/29/17-Negative/, BUN/Creatinine Date,291.0/, Other pertinent lab results, HGB, 11.2 Medications:ASA, Lipitor, Neurontin, Solumedrol, Lisinopril, Metoprolol SUMMARY: SCINTIGRAPHIC RESULTS Perfusion Defect Size (% LV) 0 % Total 0 % Ischemia 0 % Scar Left Ventricular Perfusion Results There is normal tracer distribution throughout the myocardium during stress. Gated SPECT Results The post-stress left ventricular ejection fraction is 67 % with normal regional wall motion and left ventricular thickening.Left ventricular end-diastolic volume is 123 ml; end-systolic volume is41 ml. The left ventricle is of normal size at stress.The right ventricle is of normal size with normal wall motion. Conclusion Normal regadenoson Tc-99m tetrofosmin myocardial perfusion study. The left ventricular ejection fraction is normal. CT Findings: Coronary calcification is present in the LAD, right and circumflex coronary arteriesThe ascending and descending aorta are normal in size. There is no significant pericardial effusion. Limited lung galindo show no significant abnormalities. Orthopedic hardware both upper arms. Comments Patients with a normal stress myocardial perfusion study have a low (< 1%) annual risk of cardiac or nonfatal myocardial infarction. Study Quality/Artifacts The study quality is good. Comparison to Previous Study None available. STRESS: Baseline Vital Signs:Intervention: Regadenoson 0.4mg/5ml IV over 10 seconds followed by radiotracer injection and 5ml saline flush ECG: Normal Sinus Rhythm HR:63 BP:166/88 Stress Test Results: Target HR: 131 Symptoms and Complications: Terminated: As per Regadenoson protocol Symptoms:GI discomfort, Shortness of breath Conclusions: Normal heart rate response to pharmacological stress, Normal blood pressure response to pharmacological stress Signed 11/30/2017 02:05 PM Dwayne Patterson MD Procedure Note Interface, Radiology Results In - 11/30/2017 2:08 PM CDT Nuclear Cardiology and Cardiac CT [address] [place] [address] Myocardial Perfusion Imaging Report Stress ECG tracings are available in [employer] and [employer] All ECG interpretations are included in this report Pat.Name: GAYLE WALLACE Yoly Pat.ID: [id number] .Date: 11/30/2017 Refer.MD: ANA BRAVO Exam Time: 12:53:00 PM Study Type:Myocardial Perfusion Imaging Height: 64in BSA: 1.6 m2 Age: 6 1950,67Y Sex: FEMALE BP: 166/88 HR: 63 bpm HCT: 36.3 % Nuclear Tech:ANGELITA Tomlin Pat. Stat.:Inpatient Room: A749 Nuclear Event ID:[id number] Order ID: [id number] Reason for Study:Chest pain, unspecified, Possible ACS History / Clinical:COPD Procedures:Single Day Stress / Rest Risk Factors:COPD Clinical Symptoms:Regadenoson Physical Exam:S1, S2 Surgery: Serum K+ Date, 4.2-11/30/17/, Troponin I Date, 1)11/30/17-Negative/ 2)11/29/17-Negative/ 3)11/29/17-Negative/, BUN/Creatinine Date, 29/1.0/, Other pertinent lab results, HGB, 11.2 Medications:ASA, Lipitor, Neurontin, Solumedrol, Lisinopril, Metoprolol SUMMARY: SCINTIGRAPHIC RESULTS Perfusion Defect Size (% LV) 0 % Total 0 % Ischemia 0 % Scar Left Ventricular Perfusion Results There is normal tracer distribution throughout the myocardium during stress. Gated SPECT Results The post-stress left ventricular ejection fraction is 67 % with normal regional wall motion and left ventricular thickening. Left ventricular end-diastolic volume is 123 ml; end-systolic volume is 41 ml. The left ventricle is of normal size at stress. The right ventricle is of normal size with normal wall motion. Conclusion Normal regadenoson Tc-99m tetrofosmin myocardial perfusion study. The left ventricular ejection fraction is normal. CT Findings: Coronary calcification is present in the LAD, right and circumflex coronary arteries The ascending and descending aorta are normal in size. There is no significant pericardial effusion. Limited lung galindo show no significant abnormalities. Orthopedic hardware both upper arms. Comments Patients with a normal stress myocardial perfusion study have a low (< 1%) annual risk of cardiac or nonfatal myocardial infarction. Study Quality/Artifacts The study quality is good. Comparison to Previous Study None available. STRESS: Baseline Vital Signs: Intervention: Regadenoson 0.4mg/5ml IV over 10 seconds followed by radiotracer injection and 5ml saline flush ECG: Normal Sinus Rhythm HR: 63 BP: 166/88 Stress Test Results: Target HR: 131 Symptoms and Complications: Terminated: As per Regadenoson protocol Symptoms: GI discomfort, Shortness of breath Conclusions: Normal heart rate response to pharmacological stress, Normal blood pressure response to pharmacological stress Signed 11/30/2017 02:05 PM Dwayne Patterson MD Performing Organization Address [facility] Phone Number [facility] [address] [place] [address] Troponin (11/30/2017 12:58 AM CDT)Only the most recent of3 resultswithin the time period is included. Troponin <0.30 0.00 - 0.30 ng/mL [facility] DEPARTMENT OF PATHOLOGY Comment: AND GENOMIC MEDICINE 0.30 - 1.49 ng/mlMay indicate increased risk of acute coronary syndrome. >=1.5 ng/mlConsistent with acute myocardial infarction. The diagnostic value of a single normal or non-diagnostic result is questionable.Serial samples at 2-6 hour intervals are required to rule out acute myocardial injury. Specimen Plasma specimen Performing Organization Address [facility] [place] Phone Number [facility] DEPARTMENT OF PATHOLOGY AND [address] [place] [phone] Respiratory pathogen panel (11/29/2017 1:44 PM CDT) Respiratory pathogen Negative for all pathogens tested: [facility] DEPARTMENT OF panel Negative for Adenovirus PATHOLOGY AND GENOMIC Negative for Coronavirus HKU1 MEDICINE Negative for Coronavirus NL63 Negative for Coronavirus 229E Negative for Coronavirus OC43 Negative for Human Metapneumovirus Negative for Rhinovirus/Enterovirus Negative for Influenza A Negative for Influenza A/H1 Negative for Influenza A/H3 Negative for Influenza A/H1-2009 Negative for Influenza B Negative for Parainfluenza Virus 1 Negative for Parainfluenza Virus 2 Negative for Parainfluenza Virus 3 Negative for Parainfluenza Virus 4 Negative for Respiratory Syncytial Virus Negative for Bordetella pertussis Negative for Chlamydophila pneumoniae Negative for Mycoplasma pneumoniae This real-time PCR assay detects the presence of nucleic acids (RNA or DNA) for the respiratory pathogens listed. A result of "Not-detected" does not exclude the possibility of the presence of one or more pathogens at concentrations less than the detectable limits of the assay. Comment: Specimen Information Specimen Source: Nares Specimen Site: Right Specimen Nares - Right Performing Organization Address [facility] Phone Number [facility] DEPARTMENT OF PATHOLOGY AND [address] [place] [phone] Partial thromboplastin time, activated (11/29/2017 11:35 AM CDT) PTT 28.1 23.0 - 36.0 sec [facility] DEPARTMENT OF PATHOLOGY Comment: AND GENOMIC MEDICINE PTT therapeutic range for unfractionated heparin is 61.0-112.0 seconds which corresponds to Anti-Xa 0.3-0.7 U/ml. Specimen Blood Performing Organization Address City/State/Zipcode Phone Number [facility] DEPARTMENT OF PATHOLOGY AND [address] [place] [address] Prothrombin time with INR (11/29/2017 11:35 AM CDT) Prothrombin time 12.7 12.0 - 15.0 sec [facility] DEPARTMENT OF PATHOLOGY AND GENOMIC MEDICINE INR 0.9 [facility] DEPARTMENT OF Comment: PATHOLOGY AND GENOMIC The International Normalized Ratio (INR) is a therapeutic MEDICINE monitoring tool for patients who are stable on oral anticoagulant therapy. An INR of 2.0-3.0 is suggested for deep vein thrombosis/pulmonary embolism. Specimen Blood Performing Organization Address City/[facility] Phone Number [facility] DEPARTMENT OF PATHOLOGY AND [address] [place] [address] B natriuretic peptide (11/29/2017 11:35 AM CDT) BNP 128 (H) 0 - 100 pg/mL [facility] DEPARTMENT OF PATHOLOGY AND GENOMIC [facility] Specimen Blood Performing Organization Address City/[facility] Phone Number [facility] DEPARTMENT OF PATHOLOGY AND [address] [place] [address] XR Chest 1 Vw Portable (11/29/2017 11:21 AM CDT) Narrative Performed At EXAMINATION:XR CHEST 1 VW PORTABLE RADIANT CLINICAL HISTORY:Sob co COMPARISON:June 28, 2017. FINDINGS: Heart and mediastinum: Cardiomediastinal silhouette is normal. Calcific atherosclerosis of the aorta again seen. Lungs: Persistent hyperinflation. No focal airspace disease, pleural effusion or pneumothorax. Bones: Chronic right rib deformities. Again seen are degenerative changes of the thoracic spine, left convex scoliosis at the lower thoracic spine, and bilateral humeral arthroplasties. No acute abnormality. IMPRESSION: Stable findings without acute abnormality. I personally reviewed the images and the resident's findings and agree with the final report. [facility]-[id number] Procedure Note Hm Interface, Radiology Results Incoming - 11/29/2017 12:33 PM CDT EXAMINATION: XR CHEST 1 VW PORTABLE CLINICAL HISTORY: Sob co COMPARISON: June 28, 2017. FINDINGS: Heart and mediastinum: Cardiomediastinal silhouette is normal. Calcific atherosclerosis of the aorta again seen. Lungs: Persistent hyperinflation. No focal airspace disease, pleural effusion or pneumothorax. Bones: Chronic right rib deformities. Again seen are degenerative changes of the thoracic spine, left convex scoliosis at the lower thoracic spine, and bilateral humeral arthroplasties. No acute abnormality. IMPRESSION: Stable findings without acute abnormality. I personally reviewed the images and the resident's findings and agree with the final report. [facility]-[id number] Performing Organization Address [facility] Phone Number [facility] [address] [place] [address] ECG 12 lead (11/29/2017 10:53 AM CDT) Ventricular rate 74 [facility] Atrial rate 74 [facility] NJ interval 130 [facility] QRSD interval 90 [facility] QT interval 446 [facility] QTC interval 495 [facility] P axis 1 68 [facility] QRS axis 1 54 [facility] T wave axis 61 [facility] MUSE EKG impression Sinus rhythm with occasional premature ventricular complexes- Prolonged QT-Abnormal ECG-In automated comparison with ECG of 28-JUN-2017 09:11, -premature ventricular complexes are now present- [facility] MUSE 10:59:25 PM Performing Organization Address [facility] Phone Number [facility] M[facility] [address] [place] [address] Spirometry pre & post w/ bronchodilator, diffusion (08/19/2017 12:24 PM CDT) FEV1 Post 1.16 1.91 - 3.12 L [facility] FEV1/FVC % Post 56.68 67.20 - 86.79 % [facility] FVC Post 2.04 2.57 - 4.00 L [facility] PEF Post 1.92 4.39 - 7.92 L/s [facility] FEF 25-75% Post 0.55 0.91 - 3.46 L/s [facility] FEV1 Pre 0.86 1.91 - 3.12 L [facility] FEV1/FVC % Pre 48.76 67.20 - 86.79 % [facility] FVC Pre 1.76 2.57 - 4.00 L [facility] PEF Pre 1.10 4.39 - 7.92 L/s [facility] FEF 25-75% Pre 0.44 0.91 - 3.46 L/s [facility] DLCO Pre 9.67 14.97 - 27.97 ml/(min*mmHg) [facility] DL/VA Pre 3.10 3.00 - 5.64 ml/(min*mmHg*L) [facility] VA SB Pre 3.12 4.12 - 6.33 L [facility] DLCOc Pre 9.67 14.97 - 27.97 ml/(min*mmHg) [facility] KCOc SB Pre 3.10 3.00 - 5.64 ml/(min*mmHg*L) [facility] Hb Pre 13.40 g(Hb)/dL [facility] FEV1 % Change 35.0 % [facility] FVC % Change 16.1 % [facility] FEV1/FVC % Change 16.2 % [facility] FEF 25-75% % Change 26.0 % [facility] PEF % Change 74.7 % [facility] ERV Predicted 0.73 [facility] ERV LLN 0.73 [facility] FRCpl % Predicted 2.76 [facility] FRCpl % LLN 1.94 [facility] IC Predicted 2.12 [facility] IC LLN 2.12 [facility] RV Predicted 2.03 [facility] RV LLN 1.45 [facility] RV % TLC Predicted 41 [facility] RV % TLC LLN 31 [facility] TLC Predicted 5.11 [facility] TLC LLN 4.12 [facility] Raw Predicted 3.06 [facility] Raw LLN 3.06 [facility] R0.5IN Predicted 3.06 [facility] R0.5IN LLN 3.06 [facility] sGaw Predicted 0.10 [facility] sGaw LLN 0.10 [facility] DLCO Predicted 21.47 [facility] DLCO LLN 14.97 [facility] DLCO % Pre of Predicted 45.1 % [facility] DLCOc Predicted 21.47 [facility] DLCOc LLN 14.97 [facility] DLCOc % Pre of Predicted 45.1 % [facility] DL/VA Predicted 4.32 [facility] DL/VA LLN 3.00 [facility] DL/VA % Pre of Predicted 71.7 % [facility] KCOc SB Predicted 4.32 [facility] KCOc SB LLN 3.00 [facility] KCOc SB % Pre of Predicted 71.7 % [facility] VA SB Predicted 5.23 [facility] VA SB LLN 4.12 [facility] VA SB % Pre of Predicted 59.7 % [facility] MIP Predicted 53.64 [facility] MIP LLN 24.21 [facility] MEP Predicted 66.95 [facility] MEP LLN 23.32 [facility] MVV Predicted 92 [facility] MVV LLN 78 [facility] Performing Organization Address City/State/Zipcode Phone Number [facility] [address] [place] [address] after 08/03/2017 Insurance Payer Benefit Plan / Group Subscriber ID Type Phone Address MEDICARE MEDICARE PART B xxxxxxxxxx Medicare [place], [place] MEDICAID MEDICAID xxxxxxxxx Medicaid Advance Directives Patient has advance care planning documents, and code status on file. For more information, please contact:Farhad Barraza[address] [place] [address] Code Status Date Activated Date Inactivated Comments Full Code 09/05/2015 2:50 AM 09/11/2015 8:55 AM Code Status decision reached by: Patient
--- OUTSIDE RECORDS SUMMARY | 2018-08-04 15:33 | XMS REPORT ---
:1950 [facility] Address [facility]ik Hunt [address] [place] [address] Care Team Providers Name Role Phone UNKNOWN, REFFERING Primary Care Provider Unavailable NICOLE PETERSON Unavailable Unavailable ALEJANDRA VERDUZCO Unavailable Unavailable Problems This patient has no known problems. Allergies, Adverse Reactions, Alerts This patient has no known allergies or adverse reactions. Medications This patient has no known medications. Encounters Start End Encounter Admission Attending Care Care Encounter Date/Time Date/Time Type Type Clinicians Facility Department ID 2017-05-23 2017-05-23 Emergency E NICOLE PETERSON [facility] [id number] 11:48:00 11:48:00 Results Test Description Test Time Test Comments Text Results Atomic Results Result Comments Urinalysis Complete 2017-05-23 15:08:00 Test Item Value Reference Range Comments Color (test code=COLOR) Yellow Yellow,Straw,Pl yellow Clarity (test code=CLAR) Clear Clear Specific [place] (test code=SPGR) 1.012 1.001-1.035 pH (test code=PH) 7.0 5.0-9.0 Ketone (test code=KET) Negative mg/dL Negative Glucose (test code=GLUCUR) Negative mg/dL Negative Protein (test code=PROT) 25 mg/dL Negative Bilirubin (test code=BILI) Negative mg/dL Negative Occult Blood (test code=UDOB) Small Negative Urobilinogen (test code=UROB) 0.2 mg/dL 0.2-1.0 Nitrite (test code=NIT) Negative Negative Leuk Esterase (test code=LEUK) Moderate Negative Micros Exam (test code=MEXAM) Indicated Epithelial Cells (test code=EPI) 3-5 /LPF 0-30 WBC, Urine (test code=UWBC) 2-5 /HPF 0-5 RBC, Urine (test code=URBC) 3-5 /HPF 0-5 Bacteria (test code=BACT) Occ /HPF Comprehensive Metabolic [id number] 13:34:00 Test Item Value Reference Range Comments Sodium (test code=NA) 144 mmol/L 135-145 Potassium (test code=K) 3.9 mmol/L 3.5-5.1 Chloride (test code=CL) 106 mmol/L 98-105 Carbon Dioxide (test 29 mmol/L 22-29 code=CO2) Glucose (test code=GLU) 124 mg/dL 70-115 Blood Urea Nitrogen 12 mg/dL 8-23 (test code=BUN) Creatinine (test 0.7 mg/dL 0.5-0.9 code=CREAT) Calcium (test code=CA) 9.2 mg/dL 8.3-10.5 Prot Total (test 6.8 g/dL 6.4-8.3 code=TP) Albumin (test code=ALB) 3.8 g/dL 3.5-5.2 A/G Ratio (test 1.3 Ratio code=AGRATIO) Globulin (test 3.0 2.9-3.1 code=GLOB) Bili Total (test 0.2 mg/dL 0.1-0.9 code=TBIL) Alk Phos (test 123 U/L 35-104 code=APHOS) AST (test code=AST) 33 U/L 1-32 ALT (test code=ALT) 25 U/L 1-33 BUN/Creatinine Ratio 17.1 (test code=BCRATIO) Anion Gap (test 9 mmol/L 7-16 code=AGAP) Estimated GFR (test >60 mL/min/1.73m2 eGFR (estimated Glomerular code=GFR) Filtration Rate) is an estimated value,calculated from the patient's serum creatinine using the MDRD equation.It is NOT the patient's actual GFR. The eGFR provides a more clinicallyuseful measure of kidney disease than serum creatinine alone.This calculation takes sex and race into account, if the informationis provided. If the race is not provided, and the patient isAfrican-[place], multiply by 1.212. If sex is not provided, and thepatient is female, multiply by 0.742. Results for patients <18 years ofage have not been validated by the MDRD study and should be interpretedwith caution.eGFR Result Interpretation:eGFR > or=60 is in the Normal RangeeGFR < 60 may mean kidney diseaseeGFR < 15 may mean kidney failureRanges recommended by the National Kidney Foundation,http://nkdep.nih .gov CK [id number] 13:34:00 Test Item Value Reference Range Comments CK (test code=CK) 25 U/L 26-192 Troponin [id number] 13:34:00 Test Item Value Reference Range Comments Troponin T (test code=RAYMUNDO) <0.010 ng/mL 0.000-0.090 CBC with [id number] 13:14:00 Test Item Value Reference Range Comments WBC (test code=WBC) 4.3 K/cumm 4.4-10.5 RBC (test code=RBC) 4.81 M/cumm 3.75-5.20 Hemoglobin (test code=HGB) 11.6 gm/dL 12.2-14.8 Hematocrit (test code=HCT) 38.8 % 36.5-44.4 MCV (test code=MCV) 80.7 fL 80-100 MCH (test code=MCH) 24.2 pg 27.0-32.5 MCHC (test code=MCHC) 30.0 g/dL 32.0-37.5 RDW (test code=RDW) 15.0 % 11.5-14.5 Platelet Count (test code=PLTCT) 183 K/cumm 140-440 MPV (test code=MPV) 8.7 fL Diff Method (test code=DIFFM) Auto Neutrophil (test code=NEUT) 48.3 % 36-70 Lymphocyte (test code=LYMPH) 36.9 % 12-44 Monocyte (test code=MONO) 11.3 % 0-11 Eosinophil (test code=EOS) 2.2 % 0-7 Basophil (test code=BASO) 1.2 % 0-2 Neutro Abs (test code=ANEUT) 2.1 K/cumm 1.6-7.4 Lymph Abs (test code=ALYMPH) 1.6 K/cumm 0.5-4.6 [place] Abs (test code=AMONO) 0.5 K/cumm 0.0-1.2 Eos Abs (test code=AEOS) 0.10 K/cumm 0.00-0.74 Baso Abs (test code=ABASO) 0.1 K/cumm 0.00-0.21 Hypochromic (test code=HYPO) Moderate 15737& PELVIS W/O [id number] 12:54:07EXAM: CT ABDOMEN AND PELVIS WITHOUT CONTRASTINDICATION: Evaluate for kidney stones.COMPARISON: None availableTECHNIQUE: Routine axial CT images of the abdomen and pelvis wereobtained without intravenous contrast. Coronal and sagittal reformattedimages were submitted for review.IV contrast: NoneDLP: 312.7 mGy- cmFINDINGS: The lung bases are clear. The heart size is normal. No pleural orpericardial effusion.The noncontrast appearance of the liver, spleen, pancreas , gallbladderand adrenal glands are arenormal. No intrahepatic biliary ductaldilatation.The kidneys are normal in size. There are multiple nonobstructing stonesnoted within both kidneys with the largest on the right measuring 9 mmand the largest on the left measures 8 mm. No hydronephrosis orperinephric stranding is identified. The urinarybladder is normal inappearance.The stomach and small bowel are normal. There are multiple diverticulanoted throughout the large bowel with no pericolonic fat stranding orbowel wall thickening. No evidence of bowel obstruction.No lymphadenopathy is identified in the abdomen or pelvis. No free fluidor free air is identified. The IVC is normal. The abdominal aorta isnormal in caliber. There are atherosclerotic calcifications of theabdominal aorta.There has been prior hysterectomy. No adnexal mass.The osseous structures are normal.IMPRESSION: 1. Multiple nonobstructing renal stones noted in both kidneys. Nohydronephrosis.2. Diverticulosis without evidence of acute diverticulitis.LOCATION: R16XR CHEST 1 [id number] 12:27:29EXAM: CHEST ONE VIEWINDICATION: Chest painCOMPARISON: June 21, 2009TECHNIQUE: AP view of the chest.FINDINGS: The cardiomediastinal silhouette is normal. There are diffuseemphysematous changes bilaterally. No pneumothorax or pleural effusionis identified. The osseous structures are unremarkable.IMPRESSION: Diffuse emphysematous changes throughout both lungs.LOCATION: R16CBC W/PLT COUNT & AUTO [id number] 15:34:00 Test Item Value Reference Range Comments WHITE BLOOD CELL COUNT (BEAKER) (test zvow=296) 4.3 K/ L 4.0-10.0 RED BLOOD CELL COUNT (BEAKER) (test sdky=748) 4.40 M/ L 4.00-5.00 HEMOGLOBIN (BEAKER) (test hyjf=063) 12.2 GM/DL 12.0-15.0 HEMATOCRIT (BEAKER) (test jlul=031) 38.8 % 36.0-45.0 MEAN CORPUSCULAR VOLUME (BEAKER) (test xxga=303) 88.3 fL 82.0-99.0 MEAN CORPUSCULAR HEMOGLOBIN (BEAKER) (test 27.7 pg 27.0-33.0 xzjb=101) MEAN CORPUSCULAR HEMOGLOBIN CONC (BEAKER) (test 31.4 GM/DL 32.0-36.0 ukfm=228) RED CELL DISTRIBUTION WIDTH (BEAKER) (test 16.4 % 10.3-14.2 pnpw=474) PLATELET COUNT (BEAKER) (test ziii=909) 164 K/CU MM 150-430 MEAN PLATELET VOLUME (BEAKER) (test yokh=463) 7.0 fL 6.5-10.5 NUCLEATED RED BLOOD CELLS (BEAKER) (test 0 /100 WBC 0-0 sgib=581) NEUTROPHILS RELATIVE PERCENT (BEAKER) (test 35 % fscs=254) LYMPHOCYTES RELATIVE PERCENT (BEAKER) (test 50 % cevi=754) MONOCYTES RELATIVE PERCENT (BEAKER) (test 7 % vxeb=877) EOSINOPHILS RELATIVE PERCENT (BEAKER) (test 6 % dlqk=642) BASOPHILS RELATIVE PERCENT (BEAKER) (test 1 % xqpc=037) NEUTROPHILS ABSOLUTE COUNT (BEAKER) (test 1.53 K/ L 1.80-8.00 wkxt=406) LYMPHOCYTES ABSOLUTE COUNT (BEAKER) (test 2.18 K/ L 1.48-4.50 nvbf=996) MONOCYTES ABSOLUTE COUNT (BEAKER) (test 0.32 K/ L 0.00-1.30 wojn=697) EOSINOPHILS ABSOLUTE COUNT (BEAKER) (test 0.27 K/ L 0.00-0.50 umcr=526) BASOPHILS ABSOLUTE COUNT (BEAKER) (test 0.04 K/ L 0.00-0.20 broh=863) 0.00BASIC METABOLIC [id number] 14:29:00 Test Item Value Reference Range Comments SODIUM (BEAKER) (test 138 meq/L 136-145 ootq=375) POTASSIUM (BEAKER) (test 4.9 meq/L 3.5-5.1 nili=309) CHLORIDE (BEAKER) (test 106 meq/L 98-107 cvku=355) CO2 (BEAKER) (test 21 meq/L 22-29 tfwt=565) BLOOD UREA NITROGEN 21 mg/dL 7-21 (BEAKER) (test vvhy=092) CREATININE (BEAKER) (test 0.95 mg/dL 0.57-1.25 cgzy=389) GLUCOSE RANDOM (BEAKER) 130 mg/dL 70-105 (test jjdd=867) CALCIUM (BEAKER) (test 9.7 mg/dL 8.4-10.2 loox=580) EGFR (BEAKER) (test mL/min/1.73 sq m INSUFFICIENT CLINICAL DATA kvuv=0721) TO CALCULATE ESTIMATED GFR. CREATINE KINASE (CK), TOTAL AND [id number] 14:25:00 Test Item Value Reference Range Comments CREATINE KINASE TOTAL (BEAKER) (test rswl=704) 47 U/L 29-200 CREATINE KINASE-MB (BEAKER) (test afba=652) 2.8 ng/mL 0.0-6.6 CREATINE KINASE-MB INDEX (BEAKER) (test toiu=321) 6.0 % Effective 03/02/2014: CK-MB Reference Range ChangeNew: 0.0-6.6 Previous: 0.0- 4.9CK-MB Reference Range:<6.7 Normal6.7-10.0 Borderline>10.0 AbnormalTROPONIN [id number] 14:25:00 Test Item Value Reference Range Comments TROPONIN I (BEAKER) (test yjxa=618) < ng/mL 0.00-0.03 Effective 03/02/2014: Reference Range ChangeNew: 0.00-0.03 Previous 0.00- 0.15Troponin I (TnI) levels must be interpreted in the context of the presenting symptoms and the clinical findings. Elevated TnI levels indicate myocardial damage, but are not specific for ischemic heart disease. Elevated TnI levels are seen in patients with other cardiac conditions (including myocarditis and congestive heartfailure), and slight TnI elevations occur in patients with other conditions, including sepsis, renalfailure, acidosis, acute neurological disease, and persistent tachyarrhythmia.B-TYPE NATRIURETIC FACTOR ( BNP)2016-08-27 14:25:00 Test Item Value Reference Range Comments B-TYPE NATRIURETIC PEPTIDE (BEAKER) (test xtak=902) 26 pg/mL 0-100 [id number] 14:17:00 Test Item Value Reference Range Comments MAGNESIUM (BEAKER) (test tekg=700) 2.1 mg/dL 1.6-2.6 [id number] 13:55:00 Test Item Value Reference Range Comments PROTIME (BEAKER) (test jnfx=447) 12.3 seconds 11.7-14.7 INR (BEAKER) (test tklq=878) 0.9 <=5.9 PARTIAL THROMBOPLASTIN TIME (BEAKER) (test 24.1 seconds 22.5-36.0 pkmi=234) RECOMMENDED COUMADIN/WARFARIN INR THERAPY RANGESSTANDARD DOSE: 2.0 - 3.0 Includes: PROPHYLAXIS forvenous thrombosis, systemic embolization; TREATMENT for venous thrombosis and/or pulmonary embolus.HIGH RISK: Target INR is 2.5-3.5 for patients with mechanical heart valves.
[2018-08-04] MEDS ORDERED: HYDROCODONE/APAP 10/325 TAB ONE (17:25)
--- NOTE | 2018-08-04 17:55 | RAD REPORT ---
EXAM DESCRIPTION: RAD - Ankle Left 3 View - 08/04/2018 5:45 pm CLINICAL HISTORY: PAIN COMPARISON: No comparisons FINDINGS: No fracture, dislocation or aggressive marrow lesion. Prominent degenerative change involv ing the tarsal metatarsal joints.
--- NOTE | 2018-08-04 18:02 | EDPHYS ---
Physician Documentation [facility] Name: Gayle Wallace Age: 67 yrs Sex: Female : 1950 Arrival Date: 08/04/2018 Time: 15:32 Bed 30 Private MD: ED Physician Puneet Barboza HPI: 08/04 17:40 This 67 yrs old Female presents to ER via Ambulatory with complaints of kdr Shoulder Pain, Back Pain, Leg Pain. 17:40 The patient presents with pain, that is acute, tenderness. The complaints affect the kdr left ankle. Onset: The symptoms/episode began/occurred gradually, 10 day(s) ago. Context: The problem was sustained at home, resulted from an unknown cause, The mechanism of injury is unknown. The patient can partially bear weight on the affected extremity. the patient is able to ambulate, with mild difficulty. Associated signs and symptoms: The patient has no apparent associated signs or symptoms. Modifying factors: The symptoms are alleviated by nothing, the symptoms are aggravated by weight bearing, movement. Severity of symptoms: At their worst the symptoms were moderate, in the emergency department the symptoms are unchanged. The patient has not experienced similar symptoms in the past. The patient has not recently seen a physician. The patient states that she has chronic shoulder pain - nothing new or changing. Historical: - Allergies: 15:51 Iodine; aa5 15:51 Morphine; aa5 - PMHx: 15:51 Anxiety; Arthritis; COPD; Hypertension; Kidney stones; Myocardial infarction; aa5 - PSHx: 15:51 Hysterectomy; Tonsillectomy; Appendectomy; 2 left shoulder replacements; RIGHT knee aa5 replacement; Lithotripsy; - Immunization history:: Flu vaccine is up to date. - Social history:: Smoking status: Patient uses tobacco products, smokes one-half pack cigarettes per day. - Ebola Screening: : No symptoms or risks identified at this time. ROS: 17:40 Constitutional: Negative for fever, chills, and weight loss, Eyes: Negative for injury, kdr pain, redness, and discharge, Neck: Negative for injury, pain, and swelling, Cardiovascular: Negative for chest pain, palpitations, and edema, Respiratory: Negative for shortness of breath, cough, wheezing, and pleuritic chest pain, Abdomen/GI: Negative for abdominal pain, nausea, vomiting, diarrhea, and constipation, Back: Negative for injury and pain, : Negative for injury, bleeding, discharge, and swelling, Skin: Negative for injury, rash, and discoloration, Neuro: Negative for headache, weakness, numbness, tingling, and seizure activity. Psych: Negative for depression, anxiety, suicide ideation, homicidal ideation, and hallucinations, Allergy/Immunology: Negative for hives, rash, and allergies, Endocrine: Negative for neck swelling, polydipsia, polyuria, polyphagia, and marked weight changes, Hematologic/Lymphatic: Negative for swollen nodes, abnormal bleeding, and unusual bruising. 17:40 MS/extremity: Positive for pain, tenderness, of the left lateral ankle. Exam: 17:40 MS/ Extremity: Pulses equal, no cyanosis. Neurovascular intact. Full, normal range kdr of motion. 17:42 Musculoskeletal/extremity: The patient has pain to the lateral left ankle. kdr Vital Signs: 15:52 BP 101 / 70; Pulse 87; Resp 16 S; Temp 98.9(O); Pulse Ox 97% on R/A; Weight 56.7 kg aa5 (R); Height 5 ft. 3 in. (160.02 cm) (R); Pain 8/10; 16:54 BP 106 / 72; Pulse 79; Resp 18; Pulse Ox 100% on R/A; hj 18:00 BP 100 / 70; Pulse 70; Resp 18; Pulse Ox 100% on R/A; Pain 2/10; mg2 15:52 Body Mass Index 22.14 (56.70 kg, 160.02 cm) aa5 MDM: 18:01 Patient medically screened. kdr 18:11 Data reviewed: vital signs, nurses notes, radiologic studies. Counseling: I had a kdr detailed discussion with the patient and/or guardian regarding: the historical points, exam findings, and any diagnostic results supporting the discharge/admit diagnosis, radiology results, the need for outpatient follow up. 08/04 17:11 Order name: Ankle Left 3 View XRAY; Complete Time: 18:00 kdr Administered Medications: 17:11 Drug: [place] 10 mg-325 mg 1 tabs Route: PO; hj 17:14 Follow up: Response: No adverse reaction Disposition: 08/04/18 18:01 Discharged to Home. Impression: Pain in ankle and joints of foot. - Condition is Stable. - Discharge Instructions: Ankle Pain. - Prescriptions for Tramadol 50 mg Oral Tablet - take 1 tablet by ORAL route every 8 hours as needed; 12 tablet. - Medication Reconciliation Form, Thank You Letter, Prescription Opioid Use form. - Follow up: Private Physician; When: 2 - 3 days; Reason: If symptoms return, Further diagnostic work-up, Recheck today's complaints, Continuance of care, Re-evaluation by your physician. - Problem is an ongoing problem. - Symptoms have improved. Signatures: Dispatcher [employer] EDMS Puneet Barboza MD MD kdr Christina Arciniega, RN RN aa5 Jeremias Musa RN RN hj Jesse Singer RN RN mg2 Corrections: (The following items were deleted from the chart) 18:28 18:01 08/04/2018 18:01 Discharged to Home. Impression: Pain in ankle and joints of mg2 foot. Condition is Stable. Forms are Medication Reconciliation Form, Thank You Letter, Antibiotic Education, Prescription Opioid Use. Follow up: Private Physician; When: 2 - 3 days; Reason: If symptoms return, Further diagnostic work-up, Recheck today's complaints, Continuance of care, Re-evaluation by your physician. Problem is an ongoing problem. Symptoms have improved. kdr
--- NOTE | 2018-08-04 18:02 | ER ---
Nurse's Notes [facility] Name: Gayle Wallace Age: 67 yrs Sex: Female : 1950 Arrival Date: 08/04/2018 Time: 15:32 Bed 30 Private MD: Diagnosis: Pain in ankle and joints of foot Presentation: 08/04 15:49 Presenting complaint: Patient states: redness and pain to left cabrera that began 2 weeks aa5 ago. Pt also c/o chronic neck pain and left shoulder pain. Transition of care: patient was not received from another setting of care. Onset of symptoms was July 2018. Risk Assessment: Do you want to hurt yourself or someone else? Patient reports no desire to harm self or others. Initial Sepsis Screen: Does the patient meet any 2 criteria? No. Patient's initial sepsis screen is negative. Does the patient have a suspected source of infection? No. Patient's initial sepsis screen is negative. Care prior to arrival: None. 15:49 Acuity: LIANNA 3 aa5 15:49 Method Of Arrival: Ambulatory aa5 Triage Assessment: 16:45 General: Appears in no apparent distress. uncomfortable, Behavior is calm, cooperative, hj appropriate for age. Pain: Complains of pain in back, right leg and left leg and shoulder. Musculoskeletal: Circulation, motion, and sensation intact. Historical: - Allergies: 15:51 Iodine; aa5 15:51 Morphine; aa5 - PMHx: 15:51 Anxiety; Arthritis; COPD; Hypertension; Kidney stones; Myocardial infarction; aa5 - PSHx: 15:51 Hysterectomy; Tonsillectomy; Appendectomy; 2 left shoulder replacements; RIGHT knee aa5 replacement; Lithotripsy; - Immunization history:: Flu vaccine is up to date. - Social history:: Smoking status: Patient uses tobacco products, smokes one-half pack cigarettes per day. - Ebola Screening: : No symptoms or risks identified at this time. Screenin:45 Abuse screen: Denies threats or abuse. Denies injuries from another. Nutritional hj screening: No deficits noted. Tuberculosis screening: No symptoms or risk factors identified. Fall Risk None identified. Assessment: 16:46 General: Appears in no apparent distress. uncomfortable, Behavior is calm, cooperative, hj appropriate for age. Pain: Complains of pain in left leg. Neuro: Level of Consciousness is awake, alert, obeys commands, Oriented to person, place, time, situation, Appropriate for age. Cardiovascular: Capillary refill < 3 seconds Patient's skin is warm and dry. Respiratory: Airway is patent Respiratory effort is even, unlabored, Respiratory pattern is regular, symmetrical. GI: No signs and/or symptoms were reported involving the gastrointestinal system. : No signs and/or symptoms were reported regarding the genitourinary system. EENT: No signs and/or symptoms were reported regarding the EENT system. Derm: No signs and/or symptoms reported regarding the dermatologic system. Musculoskeletal: Reports pain in back and left leg and shoulder. 17:43 Reassessment: report given to LANEY Molina. Vital Signs: 15:52 BP 101 / 70; Pulse 87; Resp 16 S; Temp 98.9(O); Pulse Ox 97% on R/A; Weight 56.7 kg aa5 (R); Height 5 ft. 3 in. (160.02 cm) (R); Pain 8/10; 16:54 BP 106 / 72; Pulse 79; Resp 18; Pulse Ox 100% on R/A; hj 18:00 BP 100 / 70; Pulse 70; Resp 18; Pulse Ox 100% on R/A; Pain 2/10; mg2 15:52 Body Mass Index 22.14 (56.70 kg, 160.02 cm) aa5 ED Course: 15:32 Patient arrived in ED. mr 15:49 Arm band placed on. aa5 15:50 Triage completed. aa5 16:31 Puneet Barboza MD is Attending Physician. kdr 16:39 Jeremias Musa RN is Primary Nurse. hj 16:46 Patient has correct armband on for positive identification. Placed in gown. Bed in low hj position. Call light in reach. Side rails up X 1. Adult w/ patient. 17:43 No provider procedures requiring assistance completed. Patient did not have IV access mg2 during this emergency room visit. 17:45 Ankle Left 3 View XRAY In Process Unspecified. EDMS Administered Medications: 17:11 Drug: [place] 10 mg-325 mg 1 tabs Route: PO; hj 17:14 Follow up: Response: No adverse reaction hj Outcome: 18:01 Discharge ordered by . kdr 18:27 Discharged to home ambulatory. mg2 18:27 Condition: stable 18:27 Discharge instructions given to patient, Instructed on discharge instructions, follow up and referral plans. medication usage, Demonstrated understanding of instructions, follow-up care, medications, Prescriptions given X 1. 18:28 Patient left the ED. mg2 Signatures: Dispatcher [employer] EDMS Puneet Barboza MD MD kdr Rivera, Mary mr Demian, Christina, RN RN aa5 Jeremias Musa RN RN hj Gardose, Michele, RN RN mg2
[2018-08-04 19:30] VITALS: TEMP 98.9
[2018-08-04 19:31] VITALS: O2SAT 100
[2018-08-04 19:32] VITALS: BP 100/70
== END 2018-08-04 18:28 | disposition home or self-care (01) ==
LOC: ER 15:28
DX: M25.572 Pain in left ankle and joints of left foot (principal); F41.9 Anxiety disorder, unspecified; J44.9 Chronic obstructive pulmonary disease, unspecified; I10 Essential (primary) hypertension; I25.2 Old myocardial infarction; Z88.5 Allergy status to narcotic agent; Z88.8 Allergy status to other drugs, medicaments and biological substances; F17.210 Nicotine dependence, cigarettes, uncomplicated
CPT/HCPCS: 99283

== ENCOUNTER 2020-03-01 15:24 | Observation (INO) | payer MEDICARE, OTHER ==
--- OUTSIDE RECORDS SUMMARY | 2020-03-01 15:30 | XMS REPORT | Clinical Summary ---
:1950 Author Organization [facility] Address [address] [place] [address] Care Team Providers Name Role Phone Rosanne Primary Care Provider Allergies Active Allergy Reactions Severity Noted Date Comments Iodinated Contrast Media Swelling High 08/27/2016 Morpholine Analogues Swelling High 08/27/2016 Medications Medication Sig Dispensed Refills Start Date End Date Status lisinopril Take 10 mg by 0 Activ e (PRINIVIL,ZESTRIL) 10 mouth daily. MG tablet albuterol [...] Assigned at Date Recorded Not on file Last Filed Vital Signs Not on file Plan of Treatment Not on file Results Not on fileafter 03/01/2019 Insurance Payer Benefit Plan / Subscriber ID Effective Dates Phone Addre ss Type Group MEDICARE MEDICARE PART B [id number] 2016-Present Medicare FAJ[employer]O MEDICAID MEDICAID FAJARDO [id number] 2016-[place] MEDICAID MEDICAID OF [id number] 2017-Heidy [place] (Home) [place] [address]
--- OUTSIDE RECORDS SUMMARY | 2020-03-01 15:30 | XMS REPORT | Clinical Summary ---
:1950 Author Organization [facility] Address [address] [place] [address] Care Team Providers Name Role Phone Octaviano Yarbrough MD Primary Care Provider Allergies Active Allergy Reactions Severity Noted Date Comments Iodinated Contrast Other (See Comments) High C hildhood Allergy - Media Unknown Reactio n Iodine Itching Low 06/16/2005 IV only Morphine Itching Medium 05/14/2016 And swelling in injection site Morpholine Analogues Swelling High 08/27/2016 Medications Medication Sig Dispensed Refills Start End Status Date Date nebulizer and 1 Device as 1 each 0 07/19/19 Acti ve compressor (PORTABLE needed (copd 19 NEBULIZER SYSTEM) exacerbation). device albuterol (ACCUNEB) Inhale 2.5 mg. 0 10/04/19 Active 2.5 mg /3 mL (0.083 19 %) nebulizer solution albuterol (PROAIR Inhale 2 puffs. 0 10/04/19 Active HFA) 90 19 mcg/actuation inhaler metoprolol tartrate Take 25 mg by 0 07/16/19 Active (LOPRESSOR) 25 mg mouth. 19 tablet melatonin 3 mg Take 1 tablet 30 tablet 0 03/30/20 A ctive tabletIndications: (3 mg total) by 19 Insomnia, mouth nightly unspecified type as needed for sleep. fluticasone Inhale 1 30 each 12 06/17/19 Active furoate-vilanteroL inhalations 20 021 (BREO ELLIPTA) once daily. 200-25 mcg/dose blister with device powder for inhalation tiotropium (SPIRIVA INHALE 1 DOSE 30 capsule 1 06/17/19 Active WITH HANDIHALER) 18 BY MOUTH ONCE 20 mcg per inhalation DAILY capsule fexofenadine-pseudoe Take 1 tablet 30 tablet 11 06/17/1906/16 Active pHEDrine (JOSE-D by mouth daily. 20 021 24 HOUR) 180-240 mg per 24 hr tablet lisinopriL Take 1 tablet 360 tablet 0 08/17/19 Acti ve (PRINIVIL) 20 mg (20 mg total) 20 021 tablet by mouth every morning. omeprazole OTC Take 2 tablets 90 tablet 1 10/05/19 Active (PriLOSEC OTC) 20 MG (40 mg total) 20 EC by mouth 2 tabletIndications: (two) times a Dyspepsia, Hiatal day. hernia, Gastroesophageal reflux disease with esophagitis gabapentin Take 1 capsule 270 capsule 1 10/26/19 Ac tive (NEURONTIN) 300 mg (300 mg total) 20 capsule by mouth 3 (three) times a day. diclofenac Apply topically 100 g 3 10/26/19 Act refugio (Voltaren) 1 % gel 4 (four) times 20 a day. ibuprofen (ADVIL) TAKE 1 TABLET 30 tablet 0 12/13/19 Active 800 MG tablet BY MOUTH EVERY 20 8 HOURS NEEDED FOR MILD PAIN gabapentin Take 1 capsule 90 capsule 11 07/08/19 Dis continued (NEURONTIN) 300 mg (300 mg total) 19 020 capsuleIndications: by mouth 3 Chronic pain (three) times a syndrome day. lisinopril Take 1 tablet 360 tablet 0 07/08/19 Disc ontinued (PRINIVIL,ZESTRIL) (20 mg total) 19 020 (Reorder) 20 mg tablet by mouth every morning. SPIRIVA WITH INHALE 1 DOSE 30 capsule 1 09/23/19 Di scontinued HANDIHALER 18 mcg BY MOUTH ONCE 19 020 (Reorder) per inhalation DAILY capsule fluticasone Inhale 1 30 each 12 10/01/19 Disconti nued furoate-vilanterol inhalations 19 020 (Reorder) (BREO ELLIPTA) once daily. 200-25 mcg/dose blister with device powder for inhalation ibuprofen (ADVIL) Take 800 mg by 0 11/21/19 Discontinued 800 MG tablet mouth. 19 019 omeprazole Take 2 capsules 180 capsule 0 02/21/20 D iscontinued (PriLOSEC) 20 MG (40 mg total) 19 020 capsule by mouth daily. azithromycin Take first 2 6 tablet 0 03/20/20 Expi red (ZITHROMAX) 250 MG tablets 19 019 tablet together, then 1 every day until finished. predniSONE Take 3 tablets 12 tablet 0 03/20/20 Expi red (DELTASONE) 20 mg (60 mg total) 19 019 tablet by mouth daily for 4 days. traMADol (ULTRAM) 50 Take 1 tablet 20 tablet 0 03/20/2003/27 mg (50 mg total) 19 019 tabletIndications: by mouth every acute pain 6 (six) hours as needed for moderate pain for up to 7 days .Acute Pain. albuterol (PROAIR Inhale 2 puffs 1 Inhaler 0 03/20/20 HFA) 90 every 4 (four) 19 020 mcg/actuation hours as needed inhaler for wheezing for up to 30 days. amoxicillin-pot Take 1 tablet 10 tablet 0 03/30/20 clavulanate by mouth 2 019 (AUGMENTIN) 875-125 (two) times a mg per day for 5 days. tabletIndications: Right otitis media, unspecified otitis media type ibuprofen (ADVIL) Take 1 tablet 30 tablet 3 03/30/20 Discontinued 800 MG tablet (800 mg total) 19 020 by mouth every 8 (eight) hours as needed for mild pain for up to 40 days. predniSONE Take 1 tablet 5 tablet 0 05/06/19 Expir ed (DELTASONE) 20 mg (20 mg total) 20 020 tabletIndications: by mouth daily COPD exacerbation for 5 days. (HCC), Acute bronchitis, unspecified organism amoxicillin-pot Take 1 tablet 10 tablet 0 05/06/19 clavulanate by mouth 2 020 (AUGMENTIN) 875-125 (two) times a mg per day for 5 days. tabletIndications: COPD exacerbation (HCC), Acute bronchitis, unspecified organism acetaminophen-codein Take 1 tablet 30 tablet 0 05/11/1905/21 e (TYLENOL WITH by mouth every 20 020 CODEINE #4) 300-60 6 (six) hours mg per as needed for tabletIndications: moderate pain acute pain (pain) for up to 10 days .acute pain. pregabalin (LYRICA) Take 1 capsule 30 capsule 0 05/11/1905/17/ 75 MG capsule (75 mg total) 20 020 by mouth daily for 30 days. ibuprofen (ADVIL) TAKE 1 TABLET 30 tablet 0 06/12/19 Discontinued 800 MG tablet BY MOUTH EVERY 20 020 8 HOURS NEEDED FOR MILD PAIN FOR UP TO 40 DAYS omeprazole Take 2 capsules 180 capsule 0 06/12/19 D iscontinued (PriLOSEC) 20 MG by mouth once 20 020 capsule daily gabapentin Take 300 mg by 0 Disc ontinued (NEURONTIN) 300 mg mouth 3 (three) 020 (Reorder) capsule times a day. codeine-guaifenesin Take 5 mL by 118 mL 0 06/17/19 (GUAIFENESIN AC) mouth 3 (three) 20 020 10-100 mg/5 mL times a day as liquidIndications: needed for chronic pain cough for up to 10 days .chronic pain. ibuprofen (ADVIL) TAKE 1 TABLET 30 tablet 0 07/08/19 Discontinued 800 MG tablet BY MOUTH EVERY 20 020 8 HOURS NEEDED FOR MILD PAIN ibuprofen (ADVIL) TAKE 1 TABLET 30 tablet 0 08/11/19 Discontinued 800 MG tablet BY MOUTH EVERY 20 020 8 HOURS NEEDED FOR MILD PAIN gabapentin Take 1 capsule 270 capsule 1 08/17/19 Di scontinued (NEURONTIN) 300 mg (300 mg total) 20 020 (Reorder) capsule by mouth 3 (three) times a day. omeprazole Take 2 capsules 180 capsule 0 09/07/19 D iscontinued (PriLOSEC) 20 MG by mouth once 20 020 capsule daily omeprazole OTC Take 2 tablets 60 tablet 3 09/14/19 Discontinued (PriLOSEC OTC) 20 MG (40 mg total) 20 020 (Reorder) EC tablet by mouth daily. diclofenac Apply topically 100 g 3 09/14/19 Dis continued (Voltaren) 1 % gel 4 (four) times 20 020 (Reorder) a day. ibuprofen (ADVIL) TAKE 1 TABLET 30 tablet 0 09/20/ Discontinued 800 MG tablet BY MOUTH EVERY 20 020 ( Alternate 8 HOURS therapy) NEEDED FOR MILD PAIN acetaminophen Take 1 tablet 90 tablet 1 10/04/ Ex pired (TylenoL) 325 MG (325 mg total) 20 020 tablet by mouth every 6 (six) hours as needed for fever for up to 30 days. traZODone (DESYREL) Take 0.5 15 tablet 0 10/26/19 50 MG tablet tablets (25 mg 20 020 total) by mouth nightly for 30 days. ibuprofen (ADVIL) TAKE 1 TABLET 30 tablet 0 10/27/ Discontinued 800 MG tablet BY MOUTH EVERY 20 020 8 HOURS NEEDED FOR MILD PAIN ciprofloxacin Take 1 tablet 10 tablet 0 01/28/20 Ex pired (Cipro) 500 MG (500 mg total) 20 020 tablet by mouth 2 (two) times a day for 5 days. Active Problems Problem Noted Date Gastroesophageal reflux disease with esophagitis 10/04 Hiatal hernia 10/05/2019 Dyspepsia 09/14/2019 COPD exacerbation 12/04/2017 Microcytic anemia 11/29/2017 Overview: Added automatically from request for magdi aiden [id number] Chronic bronchitis 06/17/2017 Essential hypertension 06/17/2017 Chronic pain syndrome 06/17/2017 Pure hypercholesterolemia 06/17/2017 Anxiety 06/17/2017 Tobacco use 06/17/2017 Other chest pain 06/10/2017 Calculus of ureter 03/11/2017 Overview: Overview: Added automatically from request for magdi aiden [id number] Shoulder injury 02/03/2017 Overdose 06/03/2016 Back pain 01/26/2016 Closed fracture of nasal bone with routine healing 01/2016 Closed fracture of orbital floor 01/23/2016 Fracture of spine, lumbar, without spinal cord injury, closed 01/23/2016 UTI (urinary tract infection) 09/07/2015 Fracture of humerus 06/25/2005 Overview: Overview: right ICD10 Diagnosis Term Title Examiner Utility Osteoporosis 06/25/2005 Overview: Overview: ICD10 Diagnosis Term Title Examiner Utility 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/2005 Overview: Overview: Left prosthesis Anemia 06/25/2005 Overview: Overview: ICD10 Diagnosis Term Title Examiner Utility Osteoarthritis of shoulder 06/16/2005 Overview: Overview: ICD10 Diagnosis Term Title Examiner Utility Chest pain 06/16/2005 Overview: Overview: ICD10 Diagnosis Term Title Examiner Utility Encounters Date Type Specialty Care Team Description 01/28/2020 Telephone Internal Medicine Jeremias Yarbrough MD 01/05/2020 Patient Outreach Quality Rosalia Dockery RN 12/18/2019 Telephone Internal Medicine Lisa [place], [place] 12/14/2019 Patient Outreach Quality Joceline Ruiz 12/12/2019 Refill Internal Medicine Jeremias Yarbrough MD 11/20/2019 Telephone Internal Medicine Cezar Llamas, [place] 11/20/2019 Telephone Internal Medicine Dyana [place], [place] 11/13/2019 Orders Only Internal Medicine Jeremias Yarbrough Debility (Primary Dx); MD Octaviano Primary osteoar thritis involving multiple joints 11/10/2019 Orders Only Internal Jeremias Bernal Osteoart hritis of foot, MD Octaviano unspecified lat erality, unspecified osteoarthritis type (Primary Dx) 11/09/2019 Telephone Internal Medicine Cezar [place], [place] 11/03/2019 Telephone Internal Medicine Cezar [place], [place] 10/27/2019 Refill Internal Medicine Jeremias Yarbrough MD 10/26/2019 Telephone Consult Internal Medicine Jeremias Yarbrough Ebonie ility (Primary Dx) MD Octaviano 10/26/2019 Orders Only Internal Medicine Dyana Gloria, [place] 10/19/2019 Telephone Internal Medicine Lisa [place], [place] 10/10/2019 Orders Only Internal Medicine Jeremias Yarbrough MD 10/09/2019 Telephone Internal Medicine Dyana [place], [place] 10/05/2019 Telephone Consult Internal Medicine Charito Nuñez (Primary Dx); MD Suzie Essential hyper tension; COPD exacerbati on (HCC); Microcytic anem ia; Calculus of ure ter; Osteoarthritis of right shoulder, unspecified osteoarthritis type; Hiatal hernia; Gastroesophagea l reflux disease with esophagitis 10/05/2019 Travel 09/29/2019 Telephone Internal Medicine Lisa [place], [place] 09/21/2019 Refill Internal Medicine Jeremias Yarbrough MD 09/14/2019 Telephone Consult Internal Medicine Jeremias Yarbrough Chr onic pain syndrome (Primary Dx); MD Octaviano Primary osteoar thritis of both shoulders; Chronic bronchi tis, unspecified chronic bronchitis type (HCC); Dyspepsia 09/14/2019 Travel 09/07/2019 Refill Internal Medicine Jeremias Yarbrough MD 08/24/2019 Telephone Consult Internal Medicine Jeremias Yarbroughjames (Patient) MD Octaviano 08/24/2019 Telephone Internal Medicine Lisa Bryant MA 08/19/2019 External [facility] 08/18/2019 External Home Quality Stephanie Galindo [facility] 08/17/2019 Orders Only Internal Medicine Cezar Llamas MA 08/17/2019 Orders Only Internal Medicine Cezar Llamas MA 08/10/2019 Travel 08/10/2019 Refill Internal Medicine Charleen Young MD 08/10/2019 Refill Internal Medicine Jeremias Yarbrough MD 07/11/2019 Orders Only Internal Medicine Jeremias Yarbrough MD 07/07/2019 Refill Internal Medicine Jeremias Yarbrough MD 06/17/2019 Office Visit Internal Medicine Espinoza Durand Encounter for screening mammogram for malignant neoplasm of breast (Primary Dx); DO Puneet Chronic bronchi tis, unspecified chronic bronchitis type (HCC); Essential hyper tension 06/11/2019 Refill Internal Medicine Jeremias Yarbrough MD 05/15/2019 Telephone Internal Medicine Jeremias Yarbrough MD 05/11/2019 Office Visit Orthopedic Surgery Sudheer Thomas Osteoart hritis of left S.MD midfoot (Primar y Dx) 05/06/2019 Hospital Radiology Serena Guajardo SOB (shortness of breath); Encounter MD Nelida COPD exacerbati on (HCC) 05/06/2019 Office Visit Internal Medicine Dottie Chew MD SOB (s hortness of breath) (Primary Dx); COPD exacerbati on (HCC); Essential hyper tension; Chest pain, uns pecified type; Acute bronchiti s, unspecified organism 05/06/2019 Orders Only Internal Medicine Jeremias Yarbrough MD 04/17/2019 Telephone Internal Medicine Dyana Gloria MA 03/30/2019 Office Visit Internal Medicine Jeremias Yarbrough discharge follow-up (Primary Dx); MD Octaviano Impacted cerume n of right ear; Chronic pain sy ndrome; Right foot pain ; Right otitis me mickey, unspecified otitis media type; Insomnia, unspe cified type 03/20/2019 Emergency Emergency Medicine Ebenezer Burk Acute br onchitis, unspecified organism (Primary Dx); MD Regan Muscle strain o f chest wall, initial encounter 03/20/2019 Office Visit Internal Medicine Dung Knutson, Chest pain, unspecified type (Primary Dx); MD Mejía of br eath after 03/01/2019 Immunizations Name Administration Dates Next Due FLUZONE HIGH-DOSE PF 02/16/2017 FLUZONE QUAD PF 01/26/2019 Pneumococcal Conjugate 13-Valent 07/07/2018 Pneumococcal Polysaccharide 07/04/2016 Td, Unspecified 01/23/2016 Surgical History Surgery Date Site/Laterality Comments TONSILLECTOMY HYSTERECTOMY 04/15/1973 - 04/14/1974 APPENDECTOMY JOINT REPLACEMENT right knee & both shoulders x2 ESWL, KIDNEY, WITH CYSTOSCOPY 06/14/2017 Right Pr ocedure: ESWL WITH CYSTO - RIGHT ST ENT PLACEMENT; Surg jeanine: Octaviano De MD; Location: [facility] IN OR; Service: Urolog y; Laterality: Righ t; Medical devices from this surgery are in the Implants sec tion. LITHOTRIPSY x 4 EXTRACORPOREAL SHOCKWAVE 07/26/2017 Right Procedu re: LITHOTRIPSY (ESWL) EXTRACORPOREA L SHOCKWAVE LITHOT RIPSY (ESWL), RIGHT; Surgeon: Octaviano De MD; Location: [facility] MAIN OR; Servic e: Urology; Latera lity: Right; ESOPHAGOGASTRODUODENOSCOPY (EGD) 12/03/2017 N/A Procedure: EGD w/ bx and brushing; Surgeon: Fabian Guzmán acha, MD; Location: [facility] ENDOSCOPY; Serv ice: Gastroenterology ; Laterality: N/A; Medical History Medical History Date Comments Hypertension COPD (chronic obstructive pulmonary disease) (HCC) Osteoarthritis Anxiety Depression Pneumonia recently Kidney stones x4 Dementia (HCC) early stages Shortness of breath due to COPD Family History Medical History Relation Name Comments Heart disease Brother Cancer Father Heart disease Mother Cancer Sister Relation Name Status Comments Brother Father Mother Sister Social History Tobacco Use Types Packs/Day Years Used Date Current Every Day Smoker Cigarettes 1 52 Smokeless Tobacco: Never Used Tobacco Cessation: Ready to Quit: No; Co unseling Given: No Comments: 1 pack over 3 days Alcohol Use Drinks/Week oz/Week Comments No Sex Assigned at Date Recorded Not on file Last Filed Vital Signs Vital Sign Reading Time Taken Comments Blood Pressure 111/80 10/26/2019 1:52 PM CDT Pulse 89 06/17/2019 9:35 AM METAL ROOFER Temperature 36.6 C (97.9 F) 06/17/2019 9:35 AM METAL ROOFER Respiratory Rate 16 05/06/2019 1:41 PM METAL ROOFER Oxygen Saturation 96% 06/17/2019 9:35 AM METAL ROOFER Inhaled Oxygen Concentration - - Weight 60.9 kg (134 lb 3.2 oz) 06/17/2019 9:35 AM METAL ROOFER Height 162.6 cm (5' 4") 05/06/2019 1:41 PM METAL ROOFER Body Mass Index 23.04 05/06/2019 1:41 PM METAL ROOFER Plan of Treatment Health Maintenance Due Date Last Done Comments DXA SCAN 1950 BREAST CANCER SCREENING 09/27/2001 SHINGLES VACCINES (#1) 09/27/2001 INFLUENZA VACCINE 11/14/2019 01/26/2019, 01/26/2019, 02/16/2017 COLONOSCOPY SCREENING 06/16/2021 Postponed from 09/27/2001 (Patient Refused ) 65+ PNEUMOCOCCAL VACCINE (2 07/04/2021 07/07/2018, of 2 - PPSV23) 07/04/2016 Implants Implanted Type Area General Education Instructor Device Shelf Model / Identifier Expiration Serial / Date Lot Stent Uretl S-Flx Kwart Retro-Inject 6fr 24cm - [id number] Perip heral or Right: [employer] 01/31/2020 [id number] / Implanted: Qty: 1 on 06/14/2017 by Octaviano De MD at [facility] Biliary Stents N/A / [id number] Procedures Procedure Name Priority Date/Time Associated Diagnosis Comme nts XR FOOT 3+ VW LEFT Routine 05/11/2019 10:39 Left foot pain Res ults for this AM METAL ROOFER procedure are i n the results section. XR CHEST 2 VW Routine 05/06/2019 3:48 SOB (shortness of Resul ts for this PM METAL ROOFER breath) procedure are in COPD exacerbation the result s (HCC) section. CA REMOVAL IMPACTED Routine 03/30/2019 2:20 Impacted cerumen of Results for this CERUMEN IRRIGATION/LVG PM METAL ROOFER right ear proce dure are in UNILAT the results section. ECG 12-LEAD Routine 03/21/2019 8:31 Chest pain, PM METAL ROOFER unspecified type ESTIMATED GFR STAT 03/20/2019 2:40 Results fo r this PM METAL ROOFER procedure are i n the results section. B NATRIURETIC PEPTIDE STAT 03/20/2019 2:40 Re sults for this PM METAL ROOFER procedure are i n the results section. TROPONIN STAT 03/20/2019 2:40 Results for this PM METAL ROOFER procedure are i n the results section. COMPREHENSIVE STAT 03/20/2019 2:40 Results fo r this METABOLIC PANEL PM METAL ROOFER procedure ar e in the results section. HC COMPLETE BLD COUNT STAT 03/20/2019 2:40 Re sults for this W/AUTO DIFF PM METAL ROOFER procedure are i n the results section. XR CHEST 2 VW STAT 03/20/2019 1:49 Results fo r this PM METAL [facility]OOFER procedure are i n the results section. ECG 12-LEAD STAT 03/20/2019 1:23 Results for this PM METAL ROOFER procedure are i n the results section. after 03/01/2019 Results XR Foot 3+ Vw Left (05/11/2019 10:39 AM METAL ROOFER) Specimen Narrative Performed At This result has an attachment that is no t available. 3 weightbearing views of the left foot demonstrate end-stage HM [facility] tarsometatarsal arthritis involving all TMT joints wit h associated degenerative midfoot collapse. No acute fractures ar e seen. Osteopenia present. Performing Organization Address City/State/ZIP Code Phon e Number [facility] [address] [place] [address] XR Chest 2 Vw (05/06/2019 3:48 PM METAL ROOFER)Only the most recent of2 resultswithin the time period is included. Specimen Narrative Performed At EXAMINATION: XR CHEST 2 VW HM [facility] INDICATION: R06.02 Shortness of breath, J44.1 Chronic obstructive pulmonary disease with (acute) exacerbat ion, SOB and cough COMPARISON: 03/20/2019 IMPRESSION: No new airspace disease is identified. There are incre ased hypoventilatory changes in the lung bases. No pleural effusion or pneumothorax. Unchanged cardiomediastinal silhouette and osseous str uctures. Multifocal vascular calcifications are present. There are remote rib fractures. Status post bilateral shoulder hemiarthropl asties. Demineralized bones. Exaggerated thoraci c kyphosis. [facility]-[id number] Procedure Note Interface, Radiology Results Incoming - 05/06/2019 3:58 PM METAL ROOFER EXAMINATION: XR CHEST 2 VW INDICATION: R06.02 Shortness of breath, J44.1 Chronic obstructive pulmonary disease with (acute) exacerbation, SOB and cough COMPARISON: 03/20/2019 IMPRESSION: No new airspace disease is identified. T here are increased hypoventilatory changes in the lung bases. No pleural effusion or pneumothorax. Unchanged cardiomediastinal silhouette a nd osseous structures. Multifocal vascular calcifications are present. There are remote rib fractures. Status post bilateral shoulder hemiarthroplasties. Demineralized bones. Exaggerated thoracic kyphosis. [facility]-[id number] Performing Organization Address [facility] Phon e Number [facility] [address] [place] [phone] Ear cerumen removal (03/30/2019 2:20 PM METAL ROOFER) Narrative Performed At Jeremias Yarbrough MD 9 4:15 PM Ear cerumen removal Date/Time: 03/30/2019 2:55 PM Performed by: Jeremias Yarbrough MD Authorized by: Katelynn Fry MD Consent: Consent obtained: Verbal Consent given by: Patient Risks discussed: Dizziness, pain an d incomplete removal Alternatives discussed: No treatmen t Procedure details: Location: R ear Procedure type: irrigation Post-procedure details: Patient tolerance of procedure: Pro cedure terminated at patient's request Comments: Unable to tolerate disimpaction 2/2 pain Estimated GFR (03/20/2019 2:40 PM METAL ROOFER) Estimated GFR 84 mL/min/1.73 [facility] Comment: HOSPITAL Catergory Units Interpretation G1 >=90 Normal or high G2 60-89 Mildly decreased G3a 45-59 Mildly to moderately decreas ed G3b 30-44 Moderately to severely decre ased G4 15-29 Severely decreased G5 <15 Kidney failure The eGFR was calculated using the Chronic Kidney Disea se Epidemiology Collaboration (CKD-EPI) equation. Interpretation is based on recommendations of the National Kidney Foundation-Kidney Disease Outcomes Bandar lity Initiative (NKF-KDOQI) published in 2014. Specimen Plasma specimen Performing Organization Address City/[facility] Phon e Number [facility] DEPARTMENT OF PATHOLOGY AND [address] [place], [place] [address] GENOMIC MEDICINE [address] [address] Troponin (03/20/2019 2:40 PM METAL ROOFER) Pathologist [facility] Troponin <0.006 0.000 - 0.040 [facility] Comment: ng/mL [facility] changed methodology eff ective: 08/19/2018 at 10:00 am The new method has a 99th percentile cutoff of 0.040 n g/mL Specimen Plasma specimen Performing Organization Address [facility] Phon e Number [facility] DEPARTMENT OF PATHOLOGY AND [address] [place] [address] [phone] [address] CBC with platelet and differential (03/20/2019 2:40 PM METAL ROOFER) [facility] WBC 4.49 (L) 4.50 - 11.00 [facility] k/uL [facility] RBC 4.47 4.20 - 5.50 [facility] m/uL [facility] HGB 11.7 (L) 12.0 - 16.0 [facility] g/dL [facility] HCT 39.3 37.0 - 47.0 % [facility] MCV 87.9 82.0 - 100.0 [facility] MCH 26.2 (L) 27.0 - 34.0 pg [facility] MCHC 29.8 (L) 31.0 - 37.0 [facility] g/dL [facility] RDW - SD 54.5 37.0 - 55.0 fL [facility] MPV 9.9 8.8 - 13.2 fL [facility] Platelet count 179 150 - 400 k/uL [facility] Nucleated RBC 0.00 /100 WBC [facility] Neutrophils 43.9 39.0 - 69.0 % [facility] Lymphocytes 42.3 25.0 - 45.0 % [facility] Monocytes 10.2 (H) 0.0 - 10.0 % [facility] Eosinophils 2.7 0.0 - 5.0 % [facility] Basophils 0.7 0.0 - 1.0 % [facility] Immature granulocytes 0.2Comment: 0.0 - 1.0 % [facility] "Immature [facility] granulocytes" (promyelocytes , myelocytes, metamyelocytes ) Specimen Blood Performing Organization Address [facility] Phon e Number [facility] DEPARTMENT OF PATHOLOGY AND [address] [place] [phone] [place] [address] [place] [address] B natriuretic peptide (03/20/2019 2:40 PM METAL ROOFER) Pathologist Sig nature BNP 19 0 - 100 pg/mL [facility] Specimen Blood Performing Organization Address City/State/ZIP Code Phon e Number [facility] DEPARTMENT OF PATHOLOGY AND [address] [place], [place] [address] [facility] [address] [place] [address] Comprehensive metabolic panel (03/20/2019 2:40 PM METAL ROOFER) Sodium 139 135 - 148 [facility] mEq/L HOSPITAL Potassium SEE COMMENT 3.5 - 5.0 [facility] Comment: mEq/L HOSPITAL Footnote--------- Unable to perform testing, specimen is HEMOLYZED . R ecollect requested for K,ALT,AST,ALP(tests). Chloride 104 98 - [address] [facility] mEq/L [facility] CO2 23 (L) 24 - 31 mEq/L [facility] Anion gap 12@ANIO 7 - 15 mEq/L [facility] BUN 20 8 - 23 mg/dL [facility] Creatinine 0.74 0.50 - 0.90 [facility] mg/dL [facility] Glucose 152 (H) 65 - 99 mg/dL [facility] Calcium 9.8 8.8 - 10.2 [facility] mg/dL [facility] Protein 7.7 6.3 - 8.3 [facility] Comment: g/dL [facility] Uekijkd2256.6-7.0 g/dL 1 hmqf9236.4-7.6 g/dL 7 months-5yxzr076.1-7.3 g/dL 1-2 iqizf086.6-7.5 g/dL >3 utsom771.0-8.0 g/dL 18-4545474.3-8.3 g/dL Albumin 3.2 (L) 3.5 - 5.0 [facility] g/dL [facility] A/G ratio 0.7 0.7 - 3.8 [facility] Alkaline SEE 35 - 104 U/L [facility] phosphatase COMMENTComment: HOSPITAL Footnote--------- AST SEE 10 - 35 U/L [facility] COMMENTComment: HOSPITAL Footnote--------- ALT SEE 5 - 50 U/L [facility] COMMENTComment: HOSPITAL Footnote--------- Total bilirubin 0.3 0.0 - 1.2 [facility] mg/dL HOSPITAL Specimen Plasma specimen Performing Organization Address City/State/ZIP Code Phon e Number [facility] DEPARTMENT OF PATHOLOGY AND [address] [place], [place] [address] GENOMIC MEDICINE [facility] [address] [place] [address] ECG 12 lead (03/20/2019 1:23 PM METAL ROOFER) Pathologist Sig nature Ventricular rate 70 [facility] Atrial rate 70 [facility] CA interval 136 [facility] QRSD interval 88 [facility] QT interval 430 [facility] QTC interval 464 [facility] P axis 1 58 [facility] QRS axis 1 34 [facility] T wave axis 70 [facility] EKG impression Normal sinus [facility] MUSE rhythm-Normal ECG-In automated comparison with ECG of 20-MAR-2019 12:36,-No significant change was found- Specimen Narrative Performed At This result has an attachment that is no t available. 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
--- OUTSIDE RECORDS SUMMARY | 2020-03-01 15:33 | XMS REPORT | Continuity of Care Document ---
:1950 Author Organization [facility] t Address [address] [place] [address] Care Team Providers Name Role Phone UNKNOWN Primary Care Physician Unavailable Octaviano Yarbrough MD Attending Clinician Sarkis DAVISON Attending Clinician Unavailable Manny TEMPLE Attending Clinician Unavailable Joseph Attending Clinician Unavailable Ginny SANTILLAN Attending Clinician Shahram Llamas MA Attending Clinician Unavailable Faizan TEMPLE Attending Clinician Unavailable Joaquin GILES Attending Clinician Lanre Attending Clinician Unavailable Mateo Attending Clinician Unavailable Prakash Young MD Attending Clinician Abelardo PINK S Attending Clinician Puneet Durand DO Attending Clinician Katlyn Thomas MD Attending Clinician Nelida Turcios MD Attending Clinician Jeevan GILES Attending Clinician Aiden DAVISON Attending Clinician Regan Burk MD Attending Clinician Zenia GILES Attending Clinician Roverto Cordova MD Attending Clinician Doctor Unassigned, Name Attending Clinician Unavailable Selma Victor Attending Clinician KRISTEN Attending Clinician Unavailable Richard Hickey Attending Clinician Angela Ruiz Attending Clinician Ghazal VERDUZCO Attending Clinician Unavailable Selma Victor Admitting Clinician KRISTEN Admitting Clinician Unavailable Payers Payer Name Policy Type Policy Effective Date Expiration Date Sour ce Number HUMANA [id number] 2019 [place] MEDICAREHUMANA O 00:00:00 Method ist GOLD PLUS [id number]/-PresentHMO MEDICAIDMEDICAIDxxxx [id number] 2016 [place] [id number] 2016-Presen 00:00:00 Meth odist tMedicaid Problems Condition Condition Condition Status Onset Resolution Last Treating Co mments Source Name Details Category Date Date Treatment Clinician Date Gastroesop Gastroesop Disease Active [place] hageal hageal 10-04 Methodi reflux reflux 00:00: st disease disease 00 with with esophagiti esophagiti s s Hiatal Hiatal Disease Active [facility] hernia hernia 6 Methodi 00:00: st 00 Dyspepsia Dyspepsia Disease Active [facility] 6- Methodi 00:00: st 00 SOB Diagnosis Active 2017-042018-03-30 Mem oria 2-16 17:52:00 l SOB 00:00: [place] 00 Active 03/30/2018 [facility] COPD Diagnosis Active 2017-042018-03-31 Mem oria 2-16 10:33:00 l COPD 00:00: [place] 00 Active 03/30/2018 [facility] COPD; UTI Diagnosis Active 2017-042018-04-28 Memoria 2-16 09:50:00 l COPD; 00:00: [place] UTI 00 Active 03/30/2018 [facility] COPD COPD Disease Active [facility] exacerbati exacerbati 8- Me thodi on on 00:00: st 00 Microcytic Microcytic Disease Active Overview : [place] anemia anemia 8-17 Added Methodi 00:00: automatic st 00 ally from request for surgery [id number] Chronic Chronic Disease Active [facility] bronchitis bronchitis 3-05 Me thodi 00:00: st 00 Essential Essential Disease Active [facility] hypertensi hypertensi 3-05 Me thodi on on 00:00: st 00 Chronic Chronic Disease Active [facility] pain pain 3-05 [facility] syndrome syndrome 00:00: st 00 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[facility] hyperchole hyperchole 3-05 Me thodi sterolemia sterolemia 00:00: st 00 Anxiety Anxiety Disease Active [facility] 3-05 [facility] 00:00: st 00 Tobacco Tobacco Disease Active [facility] use use 3-05 Methodi 00:00: st 00 Other Other Disease Active [facility] chest pain chest pain 2-26 Me thodi 00:00: st 00 Calculus Calculus Disease Active 2016-04 Overview: [place] of ureter of ureter - Overview: M ethodi 00:00: Added st 00 automatic ally from request for surgery [id number] Shoulder Shoulder Disease Active 2016-04 [place] injury injury 0- Methodi 00:00: st 00 PAIN Diagnosis Active 2016-08-31 Mem oria 08-31 10:21:00 l PAIN 00:00: [place] 00 Active 08/31/[facility] SHOULDER Diagnosis Active 2016-08-30 M emoria AND BACK 08-29 15:42:00 l PAIN SHOULDER 00:00: Emil n AND BACK 00 PAIN Active 08/29/2016 [facility] Overdose Overdose Disease Active [place] 06-03 [facility]i 00:00: st 00 Back pain Back pain Disease Active 2015-04 [facility] 0-13 [facility]i 00:00: st 00 Closed Closed Disease Active 2015-04 [facility] fracture fracture 0-10 Method i of nasal of nasal 00:00: st bone with bone with 00 routine routine healing healing Closed Closed Disease Active 2015-04 [facility] fracture fracture 0-10 Method i of orbital of orbital 00:00: st floor floor 00 Fracture Fracture Disease Active 2015-04 [place] of spine, of spine, 0-10 Meth shanae lumbar, lumbar, 00:00: st without without 00 spinal spinal cord cord injury, injury, closed closed UTI UTI Disease Active [facility] (urinary (urinary - Method i tract tract 00:00: st infection) infection) 00 BACK PAIN Diagnosis Active 2010-042011-03-09 Memoria 05-09 17:28:00 l BACK 08:00: [place] PAIN 00 Active 03/09/2011 [facility] Fracture Fracture Disease Active Overview: [place] of humerus of humerus 06-25 Overview: Methodi 00:00: rightICD1 st 00 0 Diagnosis Term Orthopedic Nurse Utility Osteoporos Osteoporos Disease Active Overview : Farhad is is 06-25 Overview: Methodi 00:00: ICD10 st 00 Diagnosis Term Orthopedic Nurse Utility Shoulder Shoulder Disease Active Overview: [place] joint joint 06-25 Overview: [facility]i replacemen replacemen 00:00: Left st t by other t by other 00 prosthesi means means s Anemia Anemia Disease Active Overview: Nelson keshawn 06-25 Overview: Methodi 00:00: ICD10 st 00 Diagnosis Term Orthopedic Nurse Utility Osteoarthr Osteoarthr Disease Active Overview : Farhad itis of itis of 06-16 Overview: Metho di shoulder shoulder 00:00: ICD10 st 00 Diagnosis Term Orthopedic Nurse Utility Chest pain Chest pain Disease Active Overview : [facility] 06-16 Overview: [facility] 00:00: ICD10 st 00 Diagnosis Term Orthopedic Nurse Utility Chronic Problem 2018-10-21 Sergio jovany obstructiv 14:47:04 l e Chronic [place] pulmonary obstructiv disease e with pulmonary (acute) disease exacerbati with on (acute) exacerbati on 10/21/2018 [facility] Chronic Problem 2018-10-21 Sergio jovany respirator 14:47:04 l y 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 hypoxia 10/21/2018 [facility] Urinary Problem 2018-10-21 Sergio jovany tract 14:47:04 l infection, Urinary Her hirsch site not tract specified infection, site not specified 10/21/2018 [facility] Essential Problem 2018-10-21 Me moria (primary) 14:47:04 l hypertensi Emil n on Essential (primary) hypertensi on 10/21/2018 [facility] Hyperlipid Problem 2018-10-21 M emoria emia, 14:47:04 l unspecifie Emil n d Hyperlipid emia, unspecifie d 10/21/2018 [facility] Dependence Problem 2018-10-21 M emoria on 14:47:04 l supplement Emil n al oxygen Dependence on supplement al oxygen 10/21/2018 [facility] Unspecifie Problem 2018-10-21 M emoria d 14:47:04 l osteoarthr Emil n itis, Unspecifie unspecifie d d site osteoarthr itis, unspecifie d site 10/21/2018 [facility] Nicotine Problem 2018-10-21 Mem oria dependence 14:47:04 l , Nicotine Emil n cigarettes dependence , , uncomplica cigarettes balbina , uncomplica balbina 10/21/2018 [facility] Atheroscle Problem 2018-10-21 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:04 l 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 [place] 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 10/21/2018 [facility] Repeated Problem 2018-10-21 Mem oria falls 14:47:04 l Repeated Emil n falls 10/21/2018 [facility] Other Problem 2018-10-21 Memor ia chest pain 14:47:04 l Other [place] chest pain 10/21/2018 [facility] Major Problem 2018-10-21 Memor ia depressive 14:47:04 l disorder, Major Emil n single depressive episode, disorder, unspecifie single d episode, unspecifie d 10/21/2018 [facility] Anxiety Problem 2018-10-21 Sergio jovany disorder, 14:47:04 l unspecifie Anxiety Her hirsch d disorder, unspecifie d 10/21/2018 [facility] Calculus Problem 2018-10-21 Mem oria of kidney 14:47:04 l Calculus Emil n of kidney 10/21/2018 [facility] Chronic Problem 2018-10-21 Sergio jovany pain 14:47:04 l syndrome Chronic Viviana nn pain syndrome 10/21/2018 [facility] Malingerer Problem 2018-10-21 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 14:47:04 l simulation Emil n ] Malingerer [conscious simulation ] 10/21/2018 [facility] Old Problem 2018-10-21 Memor ia myocardial 14:47:04 l infarction Old Emil n myocardial infarction 10/21/2018 [facility] Chronic Problem Resolve 2018-10-21 Mem oria obstructiv d 14:47:04 l e lung Chronic [place] disease obstructiv (disorder) e lung disease (disorder) Resolved Problem 10/21/2018 [facility] Hypertensi Problem Resolve 2018-10-21 Memoria ve d 14:47:04 l disorder, [place] systemic Hypertensi arterial ve (disorder) disorder, systemic arterial (disorder) Resolved Problem 10/21/2018 [facility] Abscess Problem Active 2018-10-21 Sergio jovany (disorder) 14:47:04 l Abscess Tar[place] (disorder) Active Problem 10/21/2018 [facility] Depressive Problem Active 2018-10-21 M emoria disorder 14:47:04 l (disorder) Emil n Depressive disorder (disorder) Active Problem 10/21/2018 [facility] Osteoarthr Problem Active 2018-10-21 M emoria itis 14:47:04 l (disorder) Emil n Osteoarthr itis (disorder) Active Problem 10/21/2018 [facility] Pain in Problem Active 2018-10-21 Sergio jovany right leg 14:47:04 l (finding) Pain in Herm sudhir right leg (finding) Active Problem 10/21/2018 [facility] CHRONIC Diagnosis Active 2018-04-28 Me moria OBSTRUCTIV 09:50:00 l E CHRONIC [place] PULMONARY OBSTRUCTIV DISEASE W E PULMONARY DISEASE W Active [facility] URINARY Diagnosis Active 2018-04-28 Me moria TRACT 09:50:00 l INFECTION, URINARY Her hirsch SITE NOT TRACT SPECIF INFECTION, SITE NOT SPECIF Active [facility] Pain, Problem 2016-09-03 2016-09-03 M emoria unspecifie 08-31 03:37:07 03:37:07 l d Pain, 05:00: [place] unspecifie 00 d 08/31/2016 09/03/2016 [facility] History of Past Illness Condition Condition Condition Status Onset Resolution Last Treating Co mments Source Name Details Category Date Date Treatment Clinician Date Diarrhea Problem Resolve 2010-2018-10-21 2018-10-21 Memoria (finding) d 12-14 14:47:04 14:47:04 l Diarrhea 00:00: Emil n (finding) 00 Resolved 12/14/2010 Problem 10/21/2018 [facility] Allergies, Adverse Reactions, Alerts Allergy Allergy Status Severity Reaction(s) Onset Inactive Treating Comm ents Source Name Type Date Date Clinician Iodinate Propensi [facility] Contrast adverse [facility]: [facility] reaction 00 Center [facility] Morpholi Propensi Active Swelling [facility]15 [facility] - Analogue adverse 00:00: Medical s reaction 00 Center s Morpholi Propensi Active Swelling [place] ty to 5-15 [facility] Analogue adverse 00:00: st s reaction 00 s to drug Morphine Propensi Active Itching And [place] ty to 1-30 swelling Methodi adverse 00:00: in st reaction 00 injection s to site drug Iodine Propensi Active Itching IV only [place] ty to 3-04 Methodi adverse 00:00: st reaction 00 s to drug Iodinate Propensi Active Other (See Childhood [place]lam[place] d ty to Comments) Allergy - Meth shanae Contrast adverse Unknown st Media reaction Reaction s to drug iodine iodine Active Love Montanez Family History Family Member Diagnosis Comments Start Date Stop Date Source Natural brother Heart disease [place] Zoroastrian Natural father Cancer [facility] Natural mother Heart disease [facility] Zoroastrian Natural sister Cancer [facility] thodist Social History Social Habit Start Date Stop Date Quantity Comments Source History of tobacco Cigarette Smoker [facility] use Zoroastrian Sex Assigned At [facility] Zoroastrian Cigarettes smoked 2019-10-26 2019-10-26 [facility] current (pack per 00:00:00 00:00:00 [facility]i ) - Reported Cigarette 2019-10-26 2019-10-26 [facility] pack-years 00:00:00 00:00:00 Zoroastrian Tobacco use and 2019-10-26 2019-10-26 Never used [facility] exposure 00:00:00 00:00:00 Zoroastrian Alcohol intake 2019-10-26 2019-10-26 Current [facility] 00:00:00 00:00:00 non-drinker of Zoroastrian alcohol (finding) Social History 2018-03-31 2018-03-31 Sascha amaro 01:46:49 01:46:49 Tobacco Comment 2016-08-25 2016-08-25 1 pack over 3 [place] 00:00:00 00:00:00 days Zoroastrian Smoking Status Start Date Stop Date Source Social History 2016-08-31 12:49:55 Sascha hirsch Medications Ordered Filled Start Stop Current Ordering Indication Dosage Frequency Signature Comments Components Source Medication Medication Date Date Medication? Clinician (SIG) Name Name ciprofloxac 2019-04 2020- No 500mg Q.5D Take 1 [place] in (Cipro) 0-15 10-20 tablet Method i 500 MG 00:00: 23:59 ([address] tablet 00 :00 total) by mouth 2 (two) times a day for 5 days. ibuprofen 2020-0 Yes TAKE 1 [place] (ADVIL) 800 8-30 TABLET BY Met hodi MG tablet 00:00: MOUTH st 00 EVERY 8 HOURS NEEDED FOR MILD PAIN ibuprofen 2019-0 2020- No TAKE 1 [place] (ADVIL) 800 7-15 08-30 TABLET BY Me thodi MG tablet 00:00: 00:[address] 00 :00 EVERY 8 HOURS NEEDED FOR MILD PAIN gabapentin 2020-0 Yes 300mg Q.[id number] Take 1 [place] (NEURONTIN) 713 [id number] capsule Methodi 300 mg 00:00: 3D ([address] capsule 00 total) by mouth 3 (three) times a day. diclofenac 2019-0 Yes Q.25D Apply [place] (Voltaren) 10-25 topically Meth shanae 1 % gel 00:00: 4 (four) st 00 times a day. traZODone 2019-2019- No 25mg QD Take 0.5 [facility] (DESYREL) 713 08-12 tablets Method i 50 MG 00:00: 23:59 ([address] tablet 00 :00 total) by mouth nightly for 30 days. omeprazole 2020-0 Yes Gastroesoph 40mg Q.5D Take 2 [facility] OTC 6-22 ageal tablets Methodi (PriLOSEC 00:00: reflux ([address] OTC) 20 MG 00 disease total) by EC tablet with mouth 2 esophagitis (two) times a day. acetaminoph 2019-0 2020- No 325mg Q6H Take 1 [place] en 6-22 07-22 tablet Method[facility] (TylenoL) 00:00: 23:59 ([address] 325 MG 00 :00 total) by tablet mouth every 6 (six) hours as needed for fever for up to 30 days. ibuprofen 2019-0 2020- No TAKE 1 [place] (ADVIL) 800 6-08 06-22 TABLET BY Me thodi MG tablet 00:00: 00:[address] 00 :00 EVERY 8 HOURS NEEDED FOR MILD PAIN diclofenac 2019-0 2020- No Q.25D Apply [place] (Voltaren) 6-01 07-13 topically Met hodi 1 % gel 00:00: 00:00 4 (four) st 00 :00 times a day. omeprazole No 40mg QD Take 2 [place] OTC 09-13 tablets Methodi (PriLOSEC 00:00: 00:00 ([address] OTC) 20 MG 00 :00 total) by EC tablet mouth daily. omeprazole 2019- No Take 2 [place] (PriLOSEC) 09-06 capsules Meth shanae 20 MG 00:00: 00:[address] capsule 00 :00 once daily gabapentin No 300mg Q.[id number] Take 300 [place] (NEURONTIN) 08-16 [id number] mg by Methodi 300 mg 13:38: 00:[address] capsule 56 :00 (three) times a day. lisinopriL 20mg QD Take 1 [place] (PRINIVIL) 08-16 tablet (20 Me thodi 20 mg 00:00: 23:59 mg total) st tablet 00 :00 by mouth every morning. gabapentin No 300mg Q.[id number] Take 1 [place] (NEURONTIN) 08-16 [id number] capsule Methodi 300 mg 00:00: 00:00 3D ([address] capsule 00 :00 total) by mouth 3 (three) times a day. ibuprofen 2019- No TAKE 1 [place] (ADVIL) 800 4-28 06-08 TABLET BY Me thodi MG tablet 00:00: 00:[address] 00 :00 EVERY 8 HOURS NEEDED FOR MILD PAIN ibuprofen 2019- No TAKE 1 [place] (ADVIL) 800 3-25 04-28 TABLET BY Me thodi MG tablet 00:00: 00:[address] 00 :00 EVERY 8 HOURS NEEDED FOR MILD PAIN tiotropium 2019- Yes INHALE 1 [facility] (SPIRIVA 3-04 DOSE BY Methodi WITH 00:00: MOUTH ONCE st HANDIHALER) 00 DAILY 18 mcg per inhalation capsule fluticasone No QD Inhale 1 [place] furoate-lili 06-16-29 inhalation M ethodi anteroL 00:00: 23:[address] (BREO 00 :00 daily. ELLIPTA) 200-25 mcg/dose blister with device powder for inhalation fexofenadin 1{tbl} QD Take 1 [place] e-pseudoepH 06-16 tablet by Me zhu EDrine 00:00: 23:[address] (JOSE-D 00 :00 daily. 24 HOUR) 180-240 mg per 24 hr tablet codeine-gua chronic 5mL Q.[id number] Take 5 mL [facility] ifenesin 06-16 03-14 pain [id number] by mouth 3 [facility] (GUAIFENESI 00:00: 23:59 3D (three) st N AC) 00 :00 times a 10-100 mg/5 day as mL liquid needed for cough for up to 10 days .chronic pain. omeprazole Take 2 [place] (PriLOSEC) 2 05-25 capsules Meth shanae 20 MG 00:00: 00:[address] capsule 00 :00 once daily ibuprofen TAKE 1 [place] (ADVIL) 800 06-12-25 TABLET BY Pa thodi MG tablet 00:00: 00:[address] 00 :00 EVERY 8 HOURS NEEDED FOR MILD PAIN FOR UP TO 40 DAYS pregabalin 75mg QD Take 1 [place] (LYRICA) 75 05-11 02-26 capsule Meth shanae MG capsule 00:00: 23:59 ([address] 00 :00 total) by mouth daily for 30 days. acetaminoph acute pain 1{tbl} Q6H Take 1 [place] en-codeine 05-11 02-06 tablet by Met rubio (TYLENOL 00:00: 23:[address] WITH 00 :00 every 6 CODEINE #4) (six) 300-60 mg hours as per tablet needed for moderate pain (pain) for up to 10 days .acute pain. predniSONE Acute 20mg QD Take 1 [place] (DELTASONE) 05-06 bronchitis, tablet (20 Methodi 20 mg 00:00: 23:59 unspecified mg total) st tablet 00 :00 organism by mouth daily for 5 days. amoxicillin 2019- No Acute 1{tbl} Q.5D Take 1 Farhad -pot 05-06 bronchitis, tablet by Pa thodi clavulanate 00:00: 23:[address] (AUGMENTIN) 00 :00 organism (two) 875-125 mg times a per tablet day for 5 days. melatonin 3 2018-04 Yes Insomnia, 3mg QD Take 1 [place] mg tablet 2-16 unspecified tablet (3 Methodi 00:00: type mg total) st 00 by mouth nightly as needed for sleep. ibuprofen 2018-04- No 800mg Q8H Take 1 [place] (ADVIL) 800 05-31 tablet Metho di MG tablet 00:00: 00:00 ([address] 00 :00 total) by mouth every 8 (eight) hours as needed for mild pain for up to 40 days. amoxicillin 2018-04- No Right 1{tbl} Q.5D Take 1 [place] -soy 05-31 otitis tablet by Methodi clavulanate 00:00: 23:59 media, mouth 2 st (AUGMENTIN) 00 :00 unspecified (two) 875-125 mg otitis times a per tablet media type day for 5 days. albuterol 2018-04- No 2{puff} Q4H Inhale 2 [place] (PROAIR 05-21 01-05 puffs Methodi HFA) 90 00:00: 23:[address] mcg/actuati 00 :00 (four) on inhaler hours as needed for wheezing for up to 30 days. traMADol 2018-04- No acute pain 50mg Q6H Take 1 [facility] (ULTRAM) 50 05-21- tablet (50 M ethodi mg tablet 00:00: 23:59 mg total) st 00 :00 by mouth every 6 (six) hours as needed for moderate pain for up to 7 days .Acute Pain. azithromyci 2018-04- No Take first [facility] n 05-21- 2 tablets Methodi (ZITHROMAX) 00:00: 23:59 together, st 250 MG 00 :00 then 1 tablet every day until finished. predniSONE 2018-04- No 60mg QD Take 3 [place] (DELTASONE) 05-21- tablets Meth shanae 20 mg 00:00: 23:59 ([address] tablet 00 :00 total) by mouth daily for 4 days. omeprazole 2018-04 40mg QD Take 2 [place] (PriLOSEC) 04-22 02-28 capsules Meth shanae 20 MG 00:00: 00:00 ([address] capsule 00 :00 total) by mouth daily. ibuprofen 800mg Take 800 [place] (ADVIL) 800 11-20 12-16 mg by Method i MG tablet 00:00: 00:[address] 00 :00 albuterol Yes 2.5mg Inhale 2.5 [place] (ACCUNEB) 6-21 mg. Methodi 2.5 mg /3 00:00: st mL (0.083 00 %) nebulizer solution albuterol Yes 2{puff} Inhale 2 [place] (PROAIR 6-21 puffs. Methodi HFA) 90 00:00: st mcg/actuati 00 on inhaler fluticasone QD Inhale 1 [place] furoate-lili 6-18 03-04 inhalation M ethodi anterol 00:00: 00:[address] (BREO 00 :00 daily. ELLIPTA) 200-25 mcg/dose blister with device powder for inhalation SPIRIVA INHALE 1 [place] WITH 6-10 03-04 DOSE BY Methodi HANDIHALER 00:00: 00:[address] 18 mcg per 00 :00 DAILY inhalation capsule nebulizer Yes 1{devic 1 Device [place] and 4-05 e} as needed Methodi compressor 00:00: (copd st (PORTABLE 00 exacerbati NEBULIZER on). SYSTEM) device metoprolol Yes 25mg Take 25 mg [place] tartrate 4-02 by mouth. Method i (LOPRESSOR) 00:00: st 25 mg 00 tablet lisinopril 20mg QD Take 1 [place] (PRINIVIL,Z 3-25 05-04 tablet (20 M ethodi ESTRIL) 20 00:00: 00:00 mg total) s t mg tablet 00 :00 by mouth every morning. gabapentin 2019- Chronic 300mg Q.[id number] Take 1 [place] (NEURONTIN) 305-11 pain [id number] capsule Methodi 300 mg 00:00: 00:00 syndrome 3D ([address] capsule 00 :00 total) by mouth 3 (three) times a day. Albuterol 2017-04 Yes 2.49 mg = Mem oria 0.83 MG/ML 2-20 3 mL, l Inhalant 14:58: INHALATION Her hirsch Solution 00 , Q4H, PRN wheezing, coughing, or shortness of breath, # 120 ea, 0 Refill(s) Nebulizer 2017-04 Yes 1 ea, Memoria Mask Adult 2-20 MISC, PRN, l Misc/Other 14:57: PRN As Viviana nn 00 directed by physician, # 1 ea, 0 Refill(s) Nebulizer 2017-04 Yes 1 ea, Memoria 2-20 MISC, l 14:57: ONCALL, # Tar[place] 00 1 ea, 0 Refill(s) Alprazolam 2017-04 Yes 0.5 mg = 1 M emoria 0.5 MG Oral 2-20 tab, PO, l Tablet 14:54: TID, PRN Tarik [Xanax] 00 as needed for anxiety, 0 Refill(s) atorvastati 2017-04 Yes 10 mg = 1 M emoria n 10 mg 2-20 tab, PO, l oral tablet 14:54: Daily, # He rmann 00 30 tab, 0 Refill(s) Aspirin 81 2017-04 Yes 81 mg = 1 Me moria MG Enteric 2-20 tab, PO, l Coated 14:54: Daily, # [place] Tablet 00 30 tab, 0 Refill(s) Levofloxaci 2017-04 No 500 mg = 1 Memoria n 500 MG 2-20 tab, PO, l Oral Tablet 14:54: Q24H, X 3 [place] [Levaquin] 00 day, # 3 tab, 0 Refill(s) guaiFENesin 2017-04 No 1,200 mg = Memoria 600 mg oral 2-20 2 tab, PO, l tablet, 14:54: Q12H, X 5 Viviana nn extended 00 day, # 20 release tab, 0 Refill(s) metoprolol 2017-04 Yes 25 mg = 1 Me moria tartrate 25 2-20 tab, PO, l mg oral 14:54: Q12H, # 60 Herm sudhir tablet 00 tab, 0 Refill(s) predniSONE 2017-04 No 60 mg = 3 Me moria 20 mg oral 2-20 tab, PO, l tablet 14:54: Daily, [place] 00 Take 3 tablets for 60 mg dose, X 5 day, # 15 tab, 0 Refill(s) amLODIPine 2017-04 Yes 5 mg = 1 Mem oria 5 mg oral 2-20 tab, PO, l tablet 14:54: Daily, # Tarik 00 30 tab, 0 Refill(s) Mucinex 2017-04 No Notes: Memoria 2-19 (Same as: l 17:30: Guaifenesi [place] 00 n LA, Humibid LA, Mucinex) "Do Not Crush" Take medication with plenty of water. Omeprazole 2017-04 No 40 mg, Memor ia 2-19 Route: PO, l 15:00: Daily, Tarik 00 Dosing Weight 58.892, kg, Start date: 04/02/18 9:00:00 TRIMMER AND REINFORCER, Duration: 30 day, Stop date: 05/01/18 9:00:00 TRIMMER [employer] REINFOR[employer]ER Spiriva 2017-04 No 18 Memoria 2-19 microgram, l 15:00: Route: Tarik 00 INHALATION , Daily, Dosing Weight 58.892, kg, Start date: 04/02/18 9:00:00 TRIMMER AND REINFORCER, Duration: 30 day, Stop date: 05/01/18 9:00:00 TRIMMER AND REINFORCER methylPREDN 2017-04 No Notes: Sergio jovany ISolone 2-18 (Same l SODium 22:00: as:Solu-ME Viviana nn SUCCinate 00 DROL, A-Methapre d) Protonix 2017-04 No Notes: Memoria 2-18 Tablet l 17:30: should not Tarik 00 be chewed or crushed. (Same as: Protonix) Alprazolam 2017-04 No Notes: Memor ia 0.5 MG Oral 2-18 With food l Tablet 15:38: or milk [place] [Xanax] 00 (Same as: Xanax) Acetaminoph 2017-04 No Notes: Do M emoria en 325 MG / 2-18 not exceed l Hydrocodone 15:29: 4gm/day of [place] Bitartrate 00 acetaminop 10 MG Oral hen. Tablet (Same as: [Bassett Bassett 10/325] 325/10) Ketorolac 2017-04 No 4 days Memor ia 2-18 l 07:13: MEDICATION WASTE Product Size: 30 mg Product Wasted: ___ mg Restoril 2017-04 No Notes: Memoria 2-18 (Same As: l 06:16: Restoril) Restoril 2017-04 No Notes: Memoria 2-18 (Same As: l 06:04: Restoril) Amlodipine 2017-04 No Notes: Memor ia 2-17 (Same as: l 20:02: Norvasc) Lovenox 2017-04 No Notes: Memoria 2-17 (Same as: l 15:00: Lovenox) atorvastati 2017-04 No Notes: Sergio jovany n 2-17 (Same As: l 15:00: Lipitor) Albuterol 2017-04 No Notes: Memori a 0.833 MG/ML 2-17 (Same as: l / 06:00: Duoneb) Ipratropium 00 [place] 0.167 MG/ML Inhalant Solution metoprolol 2017-04 No Notes: Memor ia tartrate 2-17 (Same as: l 03:00: Lopressor) Aspirin 2017-04 No Notes: Do Memor ia 2-17 not crush l 03:00: or chew. (Same As: Ecotrin) Saline 2017-04 No Notes: Memoria Flush 0.9% 2-17 Same as: l 03:00: BD Posiflush Sterile methylPREDN 2017-04 No Notes: Sergio jovany ISolone 2-17 (Same l SODium 02:00: as:Solu-ME Viviana nn SUCCinate 00 DROL, A-Methapre d) Budesonide 2017-04 No Notes: Memor ia 2-17 (Same As: l 02:00: Pulmicort) Omeprazole 2017-04 Yes 40 mg, PO, M emoria 2-17 Daily, 0 l 01:57: Refill(s) Azithromyci 2017-04 No Notes: Sergio jovany n 2-17 (Same As: l 01:00: Zithromax IV) Ceftriaxone 2017-04 No Notes: Sergio jovany 2-17 (Same As: l 01:00: Rocephin). Tarik 00 Use with 100 mL NS and infuse over 30 min MEDICATION WASTE Product Size: 1000 mg Product Wasted: ___ mg Acetaminoph 2017-04 No Notes: Max Memoria en 2-17 acetaminop l 00:09: hen 4000 [place] 00 mg/day (4 gm/day). (Same as: Tylenol Extra Strength) Hydralazine 2017-04 No Notes: Sergio jovany 2-17 (Same as: l 00:08: Apresoline 00 ) Push over 5 minutes Morphine 2017-04 No Notes: Memoria 2-17 (Same l 00:06: as:MORPhin 00 e Sulfate) Acetaminoph 2017-04 No Notes: Sergio jovany en 325 MG / 2-17 Same as l Hydrocodone 00:06: [place] Viviana nn Bitartrate 00 325-7.5mg 7.5 MG Oral Do not Tablet exceed [B[place] 4gm/day of 7.5/325] acetaminop hen. Saline 2017-04 No Notes: Memoria Flush 0.9% -17 Same as: l 00:05: BD Posiflush Sterile Nitroglycer 2017-04 No Notes: Sergio jovany in 2-17 (Same l 00:05: as:Nitroqu 00 ick, Nitrostat) "Do Not Crush" Sublingual tablet Dextrose 2017-04 No 25 gm, 50 Sergio jovany 50% Syringe 2-17 mL, Route: l 00:03: IVP, Drug Form: INJ, Dosing Weight 54.545, kg, PRN, PRN Blood Glucose Results, Start date: 03/30/18 18:03:00 [employer]MER [employer]IN[employer]CER, Duration: 30 day, Stop date: 04/29/18 18:02:00 [employer] Glucagon 2017-04 No 1 mg, Memoria 2-17 Route: IM, l 00:03: Drug form: Tarik 00 PDR/INJ, PRN, Dosing Weight 54.545, kg, PRN Blood Glucose Results, Start date: 03/30/18 18:03:00 [employer]MER [employer]ER, Duration: 30 day, Stop date: 04/29/18 18:02:00 [employer] Docusate 2017-04 No Notes: Memoria 2-17 (Same as: l 00:03: Colace) [place] 00 (Do Not Crush) Nitroglycer 2017-04 No 0.4 mg, Mem oria in 2-16 Route: SL, l 20:25: ONCE, Dosing Weight 54.545, kg, Priority: STAT, Start date: 03/30/18 14:25:00 [employer]ER, Stop date: 03/30/18 14:25:00 [employer] Magnesium 2017-04 No 2 gm, Memoria Sulfate -16 Route: l 20:19: IVPB, Drug form: INJ, ONCE, Dosing Weight 54.545, kg, Start date: 03/30/18 14:19:00 [employer]MER [employer]IN[employer]ER, Stop date: 03/30/18 14:19:00 [employer]ER Ondansetron 2017-04 No Notes: Sergio jovany 2-16 (Same as: l 18:47: Zofran) MEDICATION WASTE Product Size: 4 mg Product Wasted: ___ mg Morphine 2017-04 No Notes: Memoria 2-16 (Same l 18:47: as:MORPhin [place] 00 e Sulfate) methylPREDN 2017-04 No Notes: Sergio jovany ISolone 2-16 (Same l SODium 18:47: as:Solu-ME Viviana nn SUCCinate 00 DROL, A-Methapre d) Albuterol 2017-04 No Notes: Memori a 0.833 MG/ML - (Same as: l / 18:47: Duoneb) Ipratropium 00 [place] 0.167 MG/ML Inhalant Solution [DuoNeb] Saline 2017-04 No Notes: Memoria Flush 0.9% 2-16 Same as: l 18:27: BD Posiflush Sterile ciprofloxac 2016- Yes 500 mg = 1 Memoria in 500 mg 5-19 tab, PO, l oral tablet 16:12: Q12H, X 10 day, # 20 tab, 0 Refill(s) naproxen Yes 275 mg = 1 Mem oria sodium 275 5-19 tab, PO, l mg oral 16:12: Q8H, PRN Emil n tablet 00 for pain, X 10 day, # 30 tab, 0 Refill(s) ketOROLAC 2017 No 4 days. Sergio jovany 15 mg/mL -19 l injectable 15:07: Tarik solution 00 Sodium No 1,000 mL, Memori a Chloride -19 1000 l 0.154 12:59: ml/hr, [place] MEQ/ML 00 Infuse Injectable Over: 1 Solution hr, Route: IV, 1,000, Drug form: INJ, ONCE, Priority: STAT, Dosing Weight 56.818 kg, Start date: 08/31/16 7:59:00 CDT, Duration: 1 doses or times, Stop date: 08/31/16 7:59:00 CDT Acetaminoph No Notes: Do M emoria en 08-31 not exceed l 12:56: 4 gm/day. [place] 00 (Same as: Tylenol) lisinopril Yes 10mg QD Take [address] (PRINIVIL,Z 5-15 by mouth [facility] - ESTRIL) 10 16:39: daily. Medic al MG tablet 36 Center albuterol Yes 8mg Take [address] [facility] (VOSPIRE 5-15 [facility] mouth [facility] ER) 8 MG 12 16:39: every 12 Me dical hr tablet 36 (twelve) Center hours. traMADol Yes 50mg Take [address] [facility] (ULTRAM) 50 5-15 tablet (50 Ignacia kes - mg tablet 00:00: mg total) Med ical 00 by mouth Center every 6 (six) hours as needed for Pain (WARNING CAUSES SEDATION) for up to 10 doses. Immunizations Ordered Immunization Filled Immunization Date Status Commen ts Source Name Name FLUZONE QUAD PF 2019-01-26 Completed [facility] 00:00:00 [facility] Pneumococcal 2018-07-07 Completed [facility] Conjugate 13-[facility] 00:00:00 [facility] dist FLUZONE HIGH-DOSE PF 2017-02-16 Completed [facility] ton 00:00:00 [facility] Pneumococcal 2016-07-04 Completed [facility] Polysaccharide 00:00:00 [facility] Td, Unspecified 2016-01-23 Completed [facility] 00:00:00 [facility] Vital Signs Vital Name Observation Time Observation Value Comments Source Systolic blood 2019-10-26 13:52:00 111 mm[Hg] [place] n [facility] pressure Diastolic blood 2019-10-26 13:52:00 80 mm[Hg] [place] on [facility] pressure Heart rate 2019-06-17 09:35:00 89 /min [facility] Body temperature 2019-06-17 09:35:00 36.61 Kathie Louie ton [facility] Body weight 2019-06-17 09:35:00 60.873 kg [facility] BMI 2019-06-17 09:35:00 23.04 kg/m2 [facility] Oxygen saturation in 2019-06-17 09:35:00 96 /min [facility] Arterial blood by Pulse oximetry Respiratory rate 2019-05-06 13:41:00 16 /min Louie armando [facility] Body height 2019-05-06 13:41:00 162.6 cm [facility] Systolic (mm Hg) 2018-04-03 12:56:00 Sergio rial [place] Diastolic (mm Hg) 2018-04-03 12:56:00 Mem orial [place] Respitory Rate 2018-04-03 12:56:00 Memori al [place] Heart Rate 2018-04-03 12:56:00 [facility] [place] Temperature Oral (F) 2018-04-03 12:56:00 98.2 F [facility] [place] Heart Rate 2018-04-03 09:54:00 [facility] [place] Respitory Rate 2018-04-03 09:54:00 Memori al [place] Temperature Oral (F) 2018-04-03 09:54:00 98.1 F [facility] [place] Systolic (mm Hg) 2018-04-03 09:54:00 Sergio rial [place] Diastolic (mm Hg) 2018-04-03 09:54:00 Mem orial [place] Respitory Rate 2018-04-03 06:05:00 Memori al [place] Heart Rate 2018-04-03 06:05:00 [facility] [place] Systolic (mm Hg) 2018-04-03 06:05:00 Sergio rial [place] Diastolic (mm Hg) 2018-04-03 06:05:00 Mem orial [place] Temperature Oral (F) 2018-04-03 06:05:00 98.3 F [facility] [place] Height 2018-03-31 01:27:00 162.56 cm [facility] [place] BMI Calculated 2018-03-31 01:27:00 Memori al [place] Weight 2018-03-31 01:27:00 [facility] [place] Height 2018-03-31 00:36:00 157.48 cm [facility] [place] BMI Calculated 2018-03-30 18:27:00 Memori al [place] Weight 2018-03-30 18:27:00 [facility] [place] Height 2018-03-30 18:27:00 165.1 cm [facility] [place] Respitory Rate 2016-08-31 16:07:00 Memori al [place] Systolic (mm Hg) 2016-08-31 16:07:00 Sergio rial [place] Diastolic (mm Hg) 2016-08-31 16:07:00 Mem orial [place] Weight 2016-08-31 12:21:00 [facility] [place] Height 2016-08-31 12:21:00 160.02 cm [facility] [place] BMI Calculated 2016-08-31 12:21:00 Memori al [place] Respitory Rate 2016-08-31 12:21:00 Memori al [place] Temperature Oral (F) 2016-08-31 12:21:00 98.3 F [facility] [place] Systolic (mm Hg) 2016-08-31 12:21:00 Sergio rial [place] Diastolic (mm Hg) 2016-08-31 12:21:00 Mem orial [place] Heart Rate 2016-08-31 12:21:00 [facility] [place] Temperature Oral (F) 2016-08-30 00:30:00 97.5 F [facility] [place] Respitory Rate 2016-08-30 00:30:00 Memori al [place] Systolic (mm Hg) 2016-08-30 00:30:00 Sergio rial [place] Diastolic (mm Hg) 2016-08-30 00:30:00 Mem orial [place] Heart Rate 2016-08-30 00:30:00 [facility] [place] Weight 2016-08-30 00:30:00 [facility] [place] BMI Calculated 2016-08-30 00:30:00 Memori al [place] Height 2016-08-30 00:30:00 160.02 cm [facility] [place] Procedures Procedure Date / Time Performed Performing Clinician Sourc e XR FOOT 3+ VW LEFT 2019-05-11 10:39:49 Sudheer Thomas [facility] XR CHEST 2 VW 2019-05-06 15:48:12 Dottie Chew Meth odist AR REMOVAL IMPACTED 2019-03-30 14:20:00 Jeremias Yarbrough CERUMEN IRRIGATION/LVG UNILAT ECG 12-LEAD 2019-03-21 20:31:26 Dung Knutson Meth odist HC COMPLETE BLD COUNT 2019-03-20 14:40:00 Samuel Turner W/AUTO DIFF COMPREHENSIVE METABOLIC 2019-03-20 14:40:00 Samuel Turner PANEL TROPONIN 2019-03-20 14:40:00 Samuel Turner ethodist B NATRIURETIC PEPTIDE 2019-03-20 14:40:00 Samuel Turner ESTIMATED GFR 2019-03-20 14:40:00 Samuel Turner XR CHEST 2 VW 2019-03-20 13:49:39 Samuel Turner ethodist ECG 12-LEAD 2019-03-20 13:23:54 Samuel Turner Knee joint operation [facility] Shoulder joint operations [facility] Plan of Care Planned Activity Planned Date Details Comments Source Future Scheduled 2021-07-04 65+ PNEUMOCOCCAL [facility] Test 00:00:00 VACCINE (2 of 2 - [facility] PPSV23) [code = 65+ PNEUMOCOCCAL VACCINE (2 of 2 - PPSV23)] Future Scheduled 2021-06-16 COLONOSCOPY Postponed from [facility] Test 00:00:00 SCREENING [code = 09/27/2001 [facility] COLONOSCOPY (Patient Refused) SCREENING] Future Scheduled 2019-11-14 INFLUENZA VACCINE [place] Test 00:00:00 [code = INFLUENZA [facility] VACCINE] Future Scheduled 2001-09-27 BREAST CANCER [facility] Test 00:00:00 SCREENING [code = [facility]rian BREAST CANCER SCREENING] Future Scheduled 2001-09-27 SHINGLES VACCINES [place] Test 00:00:00 (#1) [code = Z[facility]rian SHINGLES VACCINES (#1)] Future Scheduled 1950 DXA SCAN [code = DXA Mary denson Test 00:00:00 SCAN] [facility] Encounters Start End Encounter Admission Attending Care Care Encounter Source Date/Time Date/Time Type Type Clinicians Facility Department ID 2019-12-11 2019-12-11 Emergency Gross, [facility] [id number] 17:51:00 22:04:00 Puneet Aldo [id number] [place] [id number] Patrick [id number] 2019-10-26 2019-10-26 Outpatient [facility] [id number] [facility] 00:00:00 00:00:[address] 2019-10-05 2019-10-05 Outpatient [facility] [id number] [facility] 00:00:00 00:00:[address] 2019-09-14 2019-09-14 Outpatient [facility] [id number] [facility] 00:00:00 00:00:[address] 2019-08-24 2019-08-24 Outpatient [facility] [id number] [facility] 00:00:00 00:00:[address] 2019-06-30 2019-06-30 Emergency Abelardo [facility] [id number] 17:09:10 18:21:00 Anne Marie Carlson [id number] [place] [id number] Patrick [id number] 2019-06-17 2019-06-17 Outpatient [facility] [id number] [facility] 00:00:00 00:00:[address] 2019-05-06 2019-05-06 Outpatient SHENA TURCIOSY [facility] [id number] [facility] 00:00:00 00:00:[address] 2019-05-01 2019-05-01 Transition Mirian Wolfe [id number] 00:00:00 00:00:00 of Care Opal Ruiz [id number] [place] [id number] [id number] 2019-03-20 2019-03-20 Emergency KEYLA, [facility] [id number] [facility] 00:00:00 00:00:00 [place] [address] 2018-11-19 2018-11-19 Office ALESIA [place] [id number] 14:19:18 15:21:36 Visit Hayden LEES [id number] [place] 4.2.7.2.686 [place] [id number] [facility] 2018-11-19 2018-11-19 Orders Doctor JAVIER [id number] 00:00:00 00:00:00 Only Unassigned, MARIANELA 350.1.13.10 [place] [facility] 4.2.7.2.686 [id number] 2018-03-30 2018-04-03 Outpatient Valente [facility] [id number] 12:16:00 15:06:00 Cheryl 02 [place] 2017-05-23 2017-05-23 Emergency E NICOLE [facility] [id number] 11:48:00 11:48:00 [facility] 2016-08-31 2016-08-31 Outpatient Edelmira [facility] [id number] 07:15:00 11:53:00 Daniel 01 Richard 2016-08-29 2016-08-29 Outpatient Joseph [facility] [id number] 18:44:00 21:16:00 Puneet Miller 00 Results Test Description Test Time Test Comments Results Result [facility] e Comments XR Chest 2 Vw 2019-04-16 [facility] [address] 15:55:10 05/06/2019 3:58 PM CSTEXAMINATION: XR CHEST 2 VWINDICATION: R06.02 Shortness of breath, J44.1 Chronic obstructive pulmonary disease with (acute) exacerbation, SOB and coughCOMPARISON: 03/20/2019IMPRESSION:No new airspace disease is identified. There are increased hypoventilatory changes in the lung bases. No pleural effusion or pneumothorax.Unchanged cardiomediastinal silhouette and osseous structures. Multifocal vascular calcifications are present. There are remote rib fractures. Status post bilateral shoulder hemiarthroplasties. Demineralized bones. Exaggerated thoracic kyphosis.[facility]-[id number] P Ear cerumen 2019-03-15 Jeremias Yarbrough [place] removal 6 03/30/[address] 14:20:00 4:15 PMEar cerumen removalDate/Time: 03/30/2019 2:55 PMPerformed by: Jeremias Yarbrough MDAuthorized by: Katelynn Fry MD Consent: Consent obtained: Verbal Consent given by: Patient Risks discussed: Dizziness, pain and incomplete removal Alternatives discussed: No treatmentProcedure details: Location: R ear Procedure type: irrigation Post-procedure details: Patient tolerance of procedure: Procedure terminated at patient's requestComments: Unable to tolerate disimpaction 2/2 pain ECG 12 lead 2019-03-22 10:33:58 Test Item Value Reference Range Interpretation Comme nts Ventricular rate (test code = 253) 70 Atrial rate (test code = 255) 70 AR interval (test code = 266) 136 QRSD interval (test code = 260) 88 QT interval (test code = 264) 430 QTC interval (test code = 265) 464 P axis 1 (test code = 267) 58 QRS axis 1 (test code = 268) 34 T wave axis (test code = 270) 70 EKG impression (test code = 273) Normal sinus rhythm-Normal ECG-In automated comparison with ECG of 20-MAR-2019 12:36,-No significant change was found- [facility] ulpjb8765-41-13 16:11:11 Test Item Value Reference Range Interpretation Comments Sodium (test code = 139 135- 148 mEq/L 2951-2) Potassium (test code = SEE COMMENT 3.5- 5.0 mEq/L Jose tnote---------U 2823-3) nable to perfor m testing, specim en is HEMOLYZED . Recollect requested for K,ALT,AST,ALP(t est s). Chloride (test code = 104 98- 112 mEq/L 2074-0) CO2 (test code = 2027-) 23 24- 31 mEq/L L Anion gap (test code = 12@ANIO 7- 15 mEq/L 20013-2) BUN (test code = 3094-0) 20 mg/dL 8-23 Creatinine (test code = 0.74 mg/dL 0.5-0.9 2160-0) Glucose (test code = 152 mg/dL 65-99 H 2345-7) Calcium (test code = 9.8 mg/dL 8.8-10.2 80810-7) Protein (test code = 7.7 g/dL 6.3-8.3 9994.6-7.0 2885-2) g/dL1 pwyx1184.4-7.6 g/dL7 months-4hwaq883 .1- 7.3 g/dL1-2 .6-7.5 g/dL>3 oxnet522.0-8.0 g/dX75-5185253. 3-8 .3 g/dL Albumin (test code = 3.2 g/dL 3.5-5 L 1751-7) A/G ratio (test code = 0.7 0.7-3.8 1759-0) Alkaline phosphatase SEE COMMENT 35-104 Footnot e--------- (test code = 6768-6) AST (test code = 1920-8) SEE COMMENT 10-35 Jose tnote--------- ALT (test code = 1742-6) SEE COMMENT 5-50 Jose tnote--------- Total bilirubin (test 0.3 mg/dL 0-1.2 code = 1975-2) Lab Interpretation (test Abnormal code = 17895-0) Farhad Methodjuan joseEstimated [id number] 16:11:11 Test Item Value Reference Range Interpretation Comments Estimated GFR (test 84 mL/min/1.73 m2 [facility] Units code = 5488) InterpretationG 1 >=90 Normal or highG2 60-89 Mildly ikzfgplurE6a 45-59 Mildly to mode rately joqrkeonjY0t 30-44 Moderately to severely decreasedG4 15-29 Severely decre asedG5 <15 Kidn ey failureThe eGFR was calculated carmine maldonado the Chronic Kidney Disease Epidemiology Co llaboration (CKD-EPI) equat ion. Interpretation is based on recommendations of the National Kidney Foundation-Kidn ey Disease Outcomes Qualit y Initiative (NKF-KDOQI) pub lished in 2014. Farhad Lopez natriuretic wsyvamx5218-74-18 15:52:30 Test Item Value Reference Range Interpretation Comments BNP (test code = 99888-3) 19 pg/mL 0-100 Farhad BarrazaSnhzyiwzaCbakxdjl5538-79-26 15:52:00 Test Item Value Reference Range Interpretation Comments Troponin (test code = <0.006 0-0.04 [place] keshawn Barraza 18133-3) Laboratories anged methodology eff ective: 08/19/2018 at 10: 00 amThe new method has a 99th percentile cuto ff of 0.040 ng/mL [facility] MethodistCBC with platelet and zohfjmnsggjp3843-56-18 15:22:15 Test Item Value Reference Range Interpretation Comments WBC (test code = 11908-0) 4.49 4.50- 11.00 k/uL L RBC (test code = 77360-1) 4.47 m/uL 4.2-5.5 HGB (test code = 718-7) 11.7 g/dL 12-16 L HCT (test code = 4544-3) 39.3 % 37-47 MCV (test code = 787-2) 87.9 fL 82-100 MCH (test code = 785-6) 26.2 pg 27-34 L MCHC (test code = 786-4) 29.8 g/dL 31-37 L RDW - SD (test code = 54.5 fL 37-55 06205-8) MPV (test code = 98987-0) 9.9 fL 8.8-13.2 Platelet count (test code 179 150- 400 k/uL = 94932-0) Nucleated RBC (test code 0.00 /100 WBC = 93099-4) Neutrophils (test code = 43.9 % 39-69 90625-3) Lymphocytes (test code = 42.3 % 25-45 21532-4) Monocytes (test code = 10.2 % 0-10 H 04838-7) Eosinophils (test code = 2.7 % 0-5 49313-5) Basophils (test code = 0.7 % 0-1 16368-3) Immature granulocytes 0.2 % 0-1 "Immat ure (test code = 42092-2) granul ocytes" (promyelocytes, myelocytes, metamyelocytes) Lab Interpretation (test Abnormal code = 96212-6) Farhad MethodistCHEM [id number] 10:21:0039[facility] HermannCHEM PANEL 2018-04-02 10:21:0055[facility] HermannCHEM MPVGM2151-50-26 10:21:008.9[facility] HermannCHEM WWIKC4242-23-72 10:21:69183Fcqbrusn HermannCHEM JDJBB0717-67-91 10:21:40224Vykizfcd HermannCHEM EOAEF3985-92-53 10:21:0029[facility] HermannCHEM OTEFX9551-50-09 10:21:004.4[facility] HermannCHEM WCHUI9697-19-08 10:21:001.06 [facility]annCHEM BGJAV8110-42-22 10:21:75074Mogequjp HermannCHEM PANEL 2018-04-02 10:21:0011.4[facility] GnojqajDUZPUMVQAH2920-05-91 10:21:00 Test Item Value Reference Range Interpretation Comments MCH (test code = MCH) 26.6 pg 27.0-31.0 Memorial IeybnggLWSIHBCUSF5748-77-61 10:21:007.5[facility] HermannHEMATOLOGY 2018-04-02 10:21:99942Badrmnbw CtnumsnWLRHKSMUAP0982-39-68 10:21:0017.2[facility] ZsisehxROAVHFBWOF3257-29-25 10:21:0032.1[facility] ImukcwpADLGYGDLNP4507-40-42 10:21:005.5[facility] WxnfnozFHQCIMTOKW6721-23-58 10:21:004.13[facility] [place] HDAHGNXWCB7505-51-30 10:21:0034.2[facility] HqodfvnHDPFSKPGYR4375-88-60 10:21:00 82.8Memorial PnyvzvgNJNYHBYIIJ8657-56-36 10:21:0011.0[facility] HermannCHEM PANEL 2018-04-01 09:01:002.0[facility] HermannCHEM DGNPI8108-98-47 09:01:0051Mem[facility] HermannCHEM LEOIO4823-91-31 09:01:008.8[facility] HermannCHEM NUFWO9177-87-07 09:01:0013.7[facility] HermannCHEM RCHBE5966-42-62 09:01:004.7[facility] HermannCHEM BJNDN9959-01-94 09:01:0027[facility] HermannCHEM WQWJL6727-97-97 09:01:83485 [facility]annCHEM SUEZO0186-93-03 09:01:71059Wowarvlb HermannCHEM PANEL 2018-04-01 09:01:001.12[facility] HermannCHEM LPDGG1444-83-77 09:01:76675Cttlhrvq HermannCHEM CXZXX3000-80-71 09:01:0032[facility] DptmtzdBPEPEJFHMG8584-37-69 09:01:000.4[facility] DckuztuPCCJSMEUQC4963-98-03 09:01:004.7[facility] [place] BRNZDXXSNY5520-52-49 09:01:000.1[facility] ClcyqtpEGEUYENYMP7078-63-35 09:01:006.9 Memorial ZypyiqsRULJXGSCNK0640-01-89 09:01:000.9[facility] HermannHEMATOLOGY 2018-04-01 09:01:0014.5[facility] NjjmqutQMOINGXWFZ7451-11-24 09:01:0078.5[facility] VroiilkTPOIOAWLNE0410-93-08 09:01:0011.4[facility] FwjstioYIQZLMCQXE0334-80-63 09:01:005.9[facility] GefbdncDSUNHIXDQX9388-75-19 09:01:004.33[facility] KASSDNCIHW7214-65-47 09:01:0036.2[facility] IbavhmhCWAUXNUVCI9757-68-43 09:01:00 164[facility] QklkngkNHQLWSCYUG4342-96-22 09:01:0017.1[facility] HermannHEMATOLOGY 2018-04-01 09:01:00 Test Item Value Reference Range Interpretation Comments MCH (test code = MCH) 26.2 pg 27.0-31.0 [facility] KoclltyTXQHJTEZMV8853-22-87 09:01:0031.4[facility] HermannHEMATOLOGY 2018-04-01 09:01:0083.5[facility] VegitrcRMQYUJDZDI4672-95-70 09:01:007.8[facility] HermannCARDIAC HRCTDFY8855-35-80 11:06:00<0.02[facility] HermannCARDIAC ENZYMES 2018-03-31 11:06:00<0.02[facility] HermannCHEM WPDJJ1315-00-80 11:06:0054 [facility] HermannCHEM GORYR5943-73-60 11:06:0026[facility] HermannCHEM PANEL 2018-03-31 11:06:0012.6[facility] HermannCHEM YWMQB7185-34-72 11:06:67290Voksbuqw HermannCHEM HITOW7898-51-78 11:06:008.9[facility] HermannCHEM RJZVW2243-23-50 11:06:004.6[facility] HermannCHEM QQTMB7563-78-98 11:06:60386Qxcawdmi HermannCHEM XYVIA6357-36-93 11:06:66727Lysawjgu HermannCHEM IQUCN4731-77-75 11:06:0023 [facility] HermannCHEM XWCZA9957-47-66 11:06:001.07[facility] HermannCHEM PANEL 2018-03-31 11:06:002.1[facility] RvszivoRQSPAXRWTK5997-65-84 11:06:0011.1[facility] ZmgtiboWGODOLRCYX4362-15-71 11:06:00 Test Item Value Reference Range Interpretation Comments MCH (test code = MCH) 26.0 pg 27.0-31.0 Memorial SyyltxlWZRTZOJGHE7978-62-54 11:06:004.27[facility] HermannHEMATOLOGY 2018-03-31 11:06:004.6[facility] VzmhxyfUIEJDDYTLF6633-12-37 11:06:0035.6[facility] MrqmwbhMRDSASIUUC7988-14-83 11:06:0083.3[facility] QdobgyaYODNTVLGMM1245-62-75 11:06:0031.2[facility] CamhfglXMFHFEZOBG6268-60-69 11:06:0017.4[facility] [place] RHOEKRRTZZ2924-97-95 11:06:51402Vosgiyzz DjfonroFBALXXYFPZ1017-57-07 11:06:007.2 [facility] IirehiiRYTTEHHVEK2348-33-62 11:06:003.2[facility] HermannHEMATOLOGY 2018-03-31 11:06:0020.2[facility] TgerentOXLOTPAXGH5139-79-47 11:06:000.1[facility] RxpmlchYTBHUCHOOH6476-32-58 11:06:0010.0[facility] LpusunqFGKISDXOGN0087-44-75 11:06:000.5[facility] AruvnfwPVCIVGZHWS9748-33-20 11:06:000.9[facility] KYRHMOFSMM0329-59-37 11:06:0069.7[facility] OprtnnkRKCZXD8880-91-44 11:06:00 Test Item Value Reference Range Interpretation Comments CHD Risk (test code = CHD Risk) 2.94 1 3.90-5.80 Memorial UaehqfxZMOATX2767-97-83 11:06:00 Test Item Value Reference Range Interpretation Comments VLDL (test code = VLDL) 11 1 [facility] XbhkpdwSPOLPJ9353-74-51 11:06:0094[facility] IpeztqdFNIIQW2330-36-37 11:06:0054[facility] FubgftqYYIXHQ6502-75-52 11:06:0054[facility]annLIPIDS 2018-03-31 11:06:98841Ajnerwei HermannCARDIAC GZXXKPA2607-48-69 05:43:00<0.02 [facility] PacvkypJOTTIFOFEF1417-19-23 05:43:00 Test Item Value Reference Range Interpretation Comments PT (test code = PT) 12.5 s 12.0-14.7 [facility] VyqzovvXGPTOHWUWQ2480-15-09 05:43:00 Test Item Value Reference Range Interpretation Comments INR (test code = INR) 0.95 1 0.85-1.17 [facility] [id number] 23:43:00Negative *NA*(03/30/18 5:43 PM) [facility] MBFFHT0957-83-67 23:43:00Negative *NA*(03/30/18 5:43 PM) [facility] [id number] 23:43:00Positive *ABN*(03/30/18 5:43 PM) [facility] [id number] 23:43:00Negative *NA*(03/30/18 5:43 PM) [facility] [id number] 23:43:00Positive *ABN*(03/30/18 5:43 PM) [facility] TZQGHG4608-25-98 23:43:00Negative *NA*(03/30/18 5:43 PM) [facility] AOXWOS8039-16-05 23:43:00See Note (03/30/18 5:43 PM) [facility] MYXCFO8697-32-31 23:43:00Negative *NA*(03/30/18 5:43 PM) [facility] [id number] 23:43:00Negative (03/30/18 5:43 PM) [facility] [id number] 23:43:00Small *ABN*(03/30/18 5:43 PM) [facility] [id number] 23:43:00 Test Item Value Reference Range Interpretation Comments UA pH (test code = UA pH) 6.0 1 5.0-8.0 [facility] [id number] 23:43:00Large *ABN*(03/30/18 5:43 PM) [facility] [id number] 23:43:00Negative *NA*(03/30/18 5:43 PM)[facility] [id number] 23:43:00Negative *NA*(03/30/18 5:43 PM)[facility] [id number] 23:43:00Negative (03/30/18 5:43 PM) [facility] XKTYD8817-69-00 23:43:00>182[facility] UNGSE8933-42-97 23:43:0018[facility] CEPXY4811-44-28 23:43:00 Clear (03/30/18 5:43 PM)[facility] [id number] 23:43:00 Test Item Value Reference Range Interpretation Comments UA Spec Grav (test code = UA Spec 1.014 1 Grav) [facility] [id number] 23:43:00Light Yellow *NA*(03/30/18 5:43 PM)[facility]annCARDIAC JUJYJWV2378-94-96 18:58:0029[facility]annCHEM PXHSN5098-59-23 18:58:003.4[facility]annCHEM KYCZY4093-39-54 18:58:0033 [facility]annCHE[facility] ANIYH2564-31-60 18:58:21883Ciegbfra HermannCHEM PANEL 2018-03-30 18:58:0030[facility]annCHE[facility] CDVDG3574-04-88 18:58:008.0[facility] [id number] 18:58:000.3[facility]annCHEM LPMFO5915-20-38 18:58:00 Test Item Value Reference Range Interpretation Comments B/C Ratio (test code = B/C Ratio) 15 1 6-25 [facility] HermannCHEM [id number] 18:58:00 Test Item Value Reference Range Interpretation Comments A/G Ratio (test code = A/G Ratio) 0.7 1 0.7-1.6 [facility] [id number] 18:58:004.6[facility]annHEMATOLOGY 2018-03-30 18:58:004.1[facility] IprmfmjHVGXZSFFES3877-22-76 18:58:0011.1[facility] IilbutfACRFBXUJGS4817-46-20 18:58:000.2[facility] SetdfmgSGWTENQKRW6477-19-95 18:58:0046.0[facility] WfiwdogUQOXQZRPMW6106-10-30 18:58:0038.5[facility] QSVNAJWMOV4677-95-63 18:58:000.3[facility] EbrujwsJZYXEUQDYR9285-52-93 18:58:000.5 [facility] FqtrgbdTSZGYORBKT8845-22-78 18:58:001.9[facility]annHEMATOLOGY 2018-03-30 18:58:001.6[facility] HermannUrinalysis Jvsbigol6928-00-48 15:08:00 Test Item Value Reference Range Interpretation Comments Color (test code = COLOR) Yellow Yellow,Straw,Pl N yellow Clarity (test code = Clear Clear N CLAR) Specific [place] (test 1.012 1.001-1.035 N code = SPGR) pH (test code = PH) 7.0 5.0-9.0 N Ketone (test code = KET) Negative mg/dL Negative N Glucose (test code = Negative mg/dL Negative N GLUCUR) Protein (test code = 25 mg/dL Negative A PROT) Bilirubin (test code = Negative mg/dL Negative N BILI) Occult Blood (test code = Small Negative A UDOB) Urobilinogen (test code = 0.2 mg/dL 0.2-1.0 N UROB) Nitrite (test code = NIT) Negative Negative N Leuk Esterase (test code Moderate Negative A = LEUK) Micros Exam (test code = Indicated MEXAM) Epithelial Cells (test 3-5 /LPF 0-30 A code = EPI) WBC, Urine (test code = 2-5 /HPF 0-5 A UWBC) RBC, Urine (test code = 3-5 /HPF 0-5 A URBC) Bacteria (test code = Occ /HPF BACT) Comprehensive Metabolic [id number] 13:34:00 Test Item Value Reference Range Interpretation Comments Sodium (test code = 144 mmol/L 135-145 N NA) Potassium (test 3.9 mmol/L 3.5-5.1 N code = K) Chloride (test code 106 mmol/L 98-105 H = CL) Carbon Dioxide 29 mmol/L 22-29 N (test code = CO2) Glucose (test code 124 mg/dL 70-115 H = GLU) Blood Urea Nitrogen 12 mg/dL 8-23 N (test code = BUN) Creatinine (test 0.7 mg/dL 0.5-0.9 N code = CREAT) Calcium (test code 9.2 mg/dL 8.3-10.5 N = CA) Prot Total (test 6.8 g/dL 6.4-8.3 N code = TP) Albumin (test code 3.8 g/dL 3.5-5.2 N = ALB) A/G Ratio (test 1.3 Ratio code = AGRATIO) Globulin (test code 3.0 2.9-3.1 N = GLOB) Bili Total (test 0.2 mg/dL 0.1-0.9 N code = TBIL) Alk Phos (test code 123 U/L 35-104 H = APHOS) AST (test code = 33 U/L 1-32 H AST) ALT (test code = 25 U/L 1-33 N ALT) BUN/Creatinine 17.1 Ratio (test code = BCRATIO) Anion Gap (test 9 mmol/L 7-16 N code = AGAP) Estimated GFR (test >60 eGFR (es timated code = GFR) mL/min/1.73m2 Glomerular Manuel tration Rate) is an est imated value,calculate d from the patient's s mode creatinine usin g the MDRD equation.I t is NOT the patient 's actual GFR. The eGFR provides a more clinicallyusefu l measure of kidn ey disease than se rum creatinine alone.This calculation fabrizio es sex and race into account, if the informationis provided. If th e race is not provided , and the patient isAfrican-Ameri can, multiply by 1.2 12. If sex is not prov ided, and thepatient is female, multipl y by 0.742. Results for patients <18 ye ars ofage have not been validated by e MDRD study and mayur d be interpretedwith caution.eGFR Re sult Interpretation: eGFR > or = 60 is in t he Normal RangeeGF R < 60 may mean kidney diseaseeGFR < 1 5 may mean kidney failureRange s recommended by the National Kidney Foundation,http ://nkd ep.nih.gov CK [id number] 13:34:00 Test Item Value Reference Range Interpretation Comments CK (test code = CK) 25 U/L 26-192 L Troponin [id number] 13:34:00 Test Item Value Reference Range Interpretation Comments Troponin T (test code = RAYMUNDO) <0.010 ng/mL 0.000-0.090 N CBC with Pmoibfljyyeg0983-07-12 13:14:00 Test Item Value Reference Range Interpretation Comments WBC (test code = WBC) 4.3 K/cumm 4.4-10.5 L RBC (test code = RBC) 4.81 M/cumm 3.75-5.20 N Hemoglobin (test code = HGB) 11.6 gm/dL 12.2-14.8 L Hematocrit (test code = HCT) 38.8 % 36.5-44.4 N MCV (test code = MCV) 80.7 fL 80-100 N MCH (test code = MCH) 24.2 pg 27.0-32.5 L MCHC (test code = MCHC) 30.0 g/dL 32.0-37.5 L RDW (test code = RDW) 15.0 % 11.5-14.5 H Platelet Count (test code = 183 K/cumm 140-440 N PLTCT) MPV (test code = MPV) 8.7 fL Diff Method (test code = DIFFM) Auto Neutrophil (test code = NEUT) 48.3 % 36-70 N Lymphocyte (test code = LYMPH) 36.9 % 12-44 N Monocyte (test code = MONO) 11.3 % 0-11 H Eosinophil (test code = EOS) 2.2 % 0-7 N Basophil (test code = BASO) 1.2 % 0-2 N Neutro Abs (test code = ANEUT) 2.1 K/cumm 1.6-7.4 N Lymph Abs (test code = ALYMPH) 1.6 K/cumm 0.5-4.6 N [place] Abs (test code = AMONO) 0.5 K/cumm 0.0-1.2 N Eos Abs (test code = AEOS) 0.10 K/cumm 0.00-0.74 N Baso Abs (test code = ABASO) 0.1 K/cumm 0.00-0.21 N Hypochromic (test code = HYPO) Moderate 83181& PELVIS W/O [id number] 12:54:07EXAM: CT ABDOMEN AND PELVIS WITHOUT CONTRASTINDICATION: Evaluate for kidney stones.COMPARISON: None a vailableTECHNIQUE: Routine axial CT images of the abdomen and pelvis wereobtained without intravenous contrast. Coronal and sagittal reformattedimages were submitted for review.IV contrast: NoneDLP: 312.7 mGy- cmFINDINGS: The lung bases are clear. The heart size is normal. No pleural orpericardial effusion.The noncontrast appearance of the liver, spleen, pancreas, gallbladderand adrenal glands are arenormal. No intrahepatic biliary ductaldilatation.The kidneys are normal in size. There are multiple n onobstructing stonesnoted within both kidneys with the largest [...] abdominal aorta isnormal in caliber. There are atheroscl erotic calcifications of theabdominal aorta.There has been prior hysterectomy. No adnexal mass.The osseous structures are normal.IMPRESSION: 1. Multiple nonobstructing renal stones noted in both kidneys. Nohydronephrosis.2. Diverticulosis without evidence of acute diverticulitis.LOCATION: R16XR CHEST 1 [id number] 12:27:29EXAM: CHEST ONE VIEWINDICATION: Chest painCOMPARISON: June 21, 2009TECHNIQUE: AP view of the chest.FINDINGS: The cardiomediastinal silhouette is normal. There are diffuseemphysematous changes bilaterally. No pneumothorax or pleural effusionis identified. The osseous structures are unremarkable.IMPRESSION: Diffuse emphysematous changes throughout both lungs.LOCATION: U66ELXOF AND [id number] 14:04:15Performed (08/31/16 9:04 AM) [facility] [id number] 14:04:15Slight Cloudy (08/31/16 9:04 AM)[facility] [id number] 14:04:15Yellow *NA*(08/31/16 9:04 AM)[facility] [id number] 14:04:15 Test Item Value Reference Range Interpretation Comments UA Spec Grav (test code = UA Spec 1.015 1 Grav) [facility] [id number] 14:04:15Negative (08/31/16 9:04 AM) [facility] [id number] 14:04:15 Test Item Value Reference Range Interpretation Comments UA pH (test code = UA pH) 6.0 1 5.0-8.0 [facility] [id number] 14:04:15Negative *NA*(08/31/16 9:04 AM) [facility] [id number] 14:04:15Negative (08/31/16 9:04 AM) [facility] [id number] 14:04:15Negative *NA*(08/31/16 9:04 AM) [facility] [id number] 14:04:15Moderate *ABN*(08/31/16 9:04 AM)[facility] [id number] 14:04:15Negative (08/31/16 9:04 AM) [facility] IGVXM5850-10-63 14:04:150.2[facility] YGRKR0323-58-98 14:04:15Negative (08/31/16 9:04 AM)[facility]annCARDIAC TIBHZYM9468-32-39 13:38:00<0.02[facility] WaabfvoTHTQLXERFHKX7745-26-96 13:38:0014.8[facility] MdtyrllKFVEMOPCEHLK0712-21-34 13:38:0065[facility] YXGFJZCIAMHF7218-27-17 13:38:009.7[facility] AdsmtenFPVKQENPHOZM1240-54-26 13:38:0026[facility] GikzflxICEYKFSVRKEI5405-42-35 13:38:004.8[facility] [place] TPORDWTPRLEH3601-26-24 13:38:75993Yeigqfuw EicsztfWIKIFQYKILPN1206-99-30 13:38:28258Aluggbzj WwnofenJWDWKXENJJPY2533-83-67 13:38:000.93[facility] [place] GCTQGSKREZAW2645-32-91 13:38:0027[facility] UqdaubzVZGFLKIFJTWT6698-43-89 13:38:00 90[facility] IbgdmlxEAEAISWNYR2333-52-96 13:38:00Normal (08/31/16 8:38 AM)[facility] XnrfrjrLYPTDGKAQU3437-14-82 13:38:00See Note 1(08/31/16 8:38 AM)[facility] ALOLYKQUHK1036-90-00 13:38:0035.0[facility] StjjrclAPMDYAMYXZ7409-66-48 13:38:00 41.6[facility] CffbztcDXMGYQVSFZ0926-80-95 13:38:006.5[facility]annHEMATOLOGY 2016-08-31 13:38:000.7[facility] BhiwswzHFTQSBEWHQ3118-02-16 13:38:000.9[facility] YftjkjlPAEXNPDTSP8923-64-62 13:38:0016.2[facility] EuvmyuqXCCEQITXBC1988-93-70 13:38:000.2[facility] FqbmcdmTQYLXEKLNG7473-39-51 13:38:001.1[facility] ZMRGSRTNVF4881-50-60 13:38:000.4[facility] KxzkzjaOLWBJAWUAP1556-11-82 13:38:00 32.3[facility] OjsgsoqNSYWZCCZDS4948-11-74 13:38:0019.6[facility]annHEMATOLOGY 2016-08-31 13:38:35784Mhaurlzo JzesebkHZJBLEUNIR0055-82-93 13:38:007.5[facility] OtjhgbzCCHOECJQBH2096-89-03 13:38:004.29[facility] FkkdedeXFYMSGUJHH0526-10-77 13:38:0034.9[facility] DvpxdndSSBXVKQRFJ0063-69-38 13:38:002.7[facility] [place] UDQLWFADGS6954-64-84 13:38:0011.3[facility] XuoezyaWMWRGTGUNF6983-93-08 13:38:00 81.5[facility] QlrbjcvBSBFLGWLQL1085-40-05 13:38:00 Test Item Value Reference Range Interpretation Comments MCH (test code = MCH) 26.4 pg 27.0-31.0 [facility] [id number] 01:45:00Slight Cloudy (08/29/16 8:45 PM)[facility] [id number] 01:45:00 Test Item Value Reference Range Interpretation Comments UA Spec Grav (test code = UA Spec 1.015 1 Grav) [facility] [id number] 01:45:00Negative *NA*(08/29/16 8:45 PM) [facility] YXKTA1765-54-62 01:45:00Yellow *NA*(08/29/16 8:45 PM) [facility] FCJXA5170-94-58 01:45:00Small *ABN*(08/29/16 8:45 PM) [facility] IVQSF6580-66-91 01:45:00Negative (08/29/16 8:45 PM) [facility] CLJUH6662-63-66 01:45:00 Test Item Value Reference Range Interpretation Comments UA pH (test code = UA pH) 6.0 1 5.0-8.0 [facility] WQSQC4021-45-43 01:45:00Negative (08/29/16 8:45 PM) [facility] CWXDH9234-06-31 01:45:00Negative *NA*(08/29/16 8:45 PM) [facility] UUYNO6330-83-64 01:45:00Large *ABN*(08/29/16 8:45 PM) [facility] SKIHL7514-87-24 01:45:000.2[facility] HYYJN1116-68-43 01:45:00Negative (08/29/16 8:45 PM)[facility] OAPIS1269-07-97 01:45:000-2 (08/29/16 8:45 PM)[facility] STOOL 2016-08-30 01:45:00Performed (08/29/16 8:45 PM)[facility] W/PLT COUNT & AUTO XFRFEXQZZJJT8034-93-30 15:34:00 Test Item Value Reference Range Interpretation Comments WHITE BLOOD CELL COUNT (BEAKER) 4.3 K/ L 4.0-10.0 (test code = 775) RED BLOOD CELL COUNT (BEAKER) 4.40 M/ L 4.00-5.00 (test code = 761) HEMOGLOBIN (BEAKER) (test code = 12.2 GM/DL 12.0-15.0 410) HEMATOCRIT (BEAKER) (test code = 38.8 % 36.0-45.0 411) MEAN CORPUSCULAR VOLUME (BEAKER) 88.3 fL 82.0-99.0 (test code = 753) MEAN CORPUSCULAR HEMOGLOBIN 27.7 pg 27.0-33.0 (BEAKER) (test code = 751) MEAN CORPUSCULAR HEMOGLOBIN CONC 31.4 GM/DL 32.0-36.0 L (BEAKER) (test code = 752) RED CELL DISTRIBUTION WIDTH 16.4 % 10.3-14.2 H (BEAKER) (test code = 412) PLATELET COUNT (BEAKER) (test 164 K/CU MM 150-430 code = 756) MEAN PLATELET VOLUME (BEAKER) 7.0 fL 6.5-10.5 (test code = 754) NUCLEATED RED BLOOD CELLS 0 /100 WBC 0-0 (BEAKER) (test code = 413) NEUTROPHILS RELATIVE PERCENT 35 % (BEAKER) (test code = 429) LYMPHOCYTES RELATIVE PERCENT 50 % (BEAKER) (test code = 430) MONOCYTES RELATIVE PERCENT 7 % (BEAKER) (test code = 431) EOSINOPHILS RELATIVE PERCENT 6 % (BEAKER) (test code = 432) BASOPHILS RELATIVE PERCENT 1 % (BEAKER) (test code = 437) NEUTROPHILS ABSOLUTE COUNT 1.53 K/ L 1.80-8.00 L (BEAKER) (test code = 670) LYMPHOCYTES ABSOLUTE COUNT 2.18 K/ L 1.48-4.50 (BEAKER) (test code = 414) MONOCYTES ABSOLUTE COUNT (BEAKER) 0.32 K/ L 0.00-1.30 (test code = 415) EOSINOPHILS ABSOLUTE COUNT 0.27 K/ L 0.00-0.50 (BEAKER) (test code = 416) BASOPHILS ABSOLUTE COUNT (BEAKER) 0.04 K/ L 0.00-0.20 (test code = 417) 0.00BASI METABOLIC [id number] 14:29:00 Test Item Value Reference Range Interpretation Comments SODIUM (BEAKER) 138 meq/L 136-145 (test code = 381) POTASSIUM (BEAKER) 4.9 meq/L 3.5-5.1 (test code = 379) CHLORIDE (BEAKER) 106 meq/L 98-107 (test code = 382) CO2 (BEAKER) (test 21 meq/L 22-29 L code = 355) BLOOD UREA NITROGEN 21 mg/dL 7-21 (BEAKER) (test code = 354) CREATININE (BEAKER) 0.95 mg/dL 0.57-1.25 (test code = 358) GLUCOSE RANDOM 130 mg/dL 70-105 H (BEAKER) (test code = 652) CALCIUM (BEAKER) 9.7 mg/dL 8.4-10.2 (test code = 697) EGFR (BEAKER) (test mL/min/1.73 INSUFFIC IENT CLINICAL code = 1092) sq m DATA TO CALCULA TE ESTIMATED GFR. CREATINE KINASE (CK), TOTAL AND [id number] 14:25:00 Test Item Value Reference Range Interpretation Comments CREATINE KINASE TOTAL (BEAKER) 47 U/L 29-200 (test code = 380) CREATINE KINASE-MB (BEAKER) (test 2.8 ng/mL 0.0-6.6 code = 750) CREATINE KINASE-MB INDEX (BEAKER) 6.0 % (test code = 395) Effective 03/02/2014: CK-MB Reference Range ChangeNew: 0.0-6.6 Previous: 0.0-4.9CK-MB Reference Range:<6.7 Normal6.7-10.0 Borderline>10.0 AbnormalTROPONIN [id number] 14:25:00 Test Item Value Reference Range Interpretation Comments TROPONIN I (BEAKER) (test code = 397) < ng/mL 0.00-0.03 Effective 03/02/2014: Reference Range [...] neurological disease, and persistent tachyarrhythmia.B-TYPE NATRIURETIC FACTOR (BNP) 2016-08-27 14:25:00 Test Item Value Reference Range Interpretation Comments B-TYPE NATRIURETIC PEPTIDE (BEAKER) 26 pg/mL 0-100 (test code = 700) [id number] 14:17:00 Test Item Value Reference Range Interpretation Comments MAGNESIUM (BEAKER) (test code = 2.1 mg/dL 1.6-2.6 627) [id number] 13:55:00 Test Item Value Reference Range Interpretation Comments PROTIME (BEAKER) (test code = 12.3 seconds 11.7-14.7 759) INR (BEAKER) (test code = 370) 0.9 <=5.9 PARTIAL THROMBOPLASTIN TIME 24.1 seconds 22.5-36.0 (KATHERINEKATARINA) (test code = 760) RECOMMENDED COUMADIN/WARFARIN INR THERAPY RANGESSTANDARD DOSE: 2.0 - 3.0 Includes: PROPHYLAXIS forvenous thrombosis, systemic embolization; TREATMENT for venous thrombosis and/or pulmonary embolus.HIGH RISK: Target INR is 2.5-3.5 for patients with mechanical heart valves.
--- OUTSIDE RECORDS SUMMARY | 2020-03-01 15:33 | XMS REPORT | Summary of Care ---
:1950 Author Organization [facility] - Health Address [address] [place] [address] Care Team Providers Name Role Phone Marychuy Brian Medicaid Hmo Octaviano Yarbrough Primary Care Provider Reason for Referral MRI/CAT Scan (STAT) Status Reason Specialty Diagnoses / Referred By Referred To Procedures Contact Contact New Request Diagnostic Diagnoses Right flank pain Puneet Gross, Radiology Procedures CT ABDOMEN PELVIS WO CONTRAST FORECAST ANALYST [address] [place] [phone] Radiology Services (STAT) Status Reason Specialty Diagnoses / Referred By Referred To Procedures Contact Contact New Request Diagnostic Diagnoses Shortness of breath COPD exacerbation Chest pain, unspecified type Puneet Gross, Radiology Procedures XR CHEST 1 VW FORECAST ANALYST [address] [place] [phone] Reason for Visit Reason Comments Chest Pain Shortness of Breath Flank Pain right Auth/Cert Status Reason Specialty Diagnoses / Referred By Referred To Procedures Contact Contact Emergency Medicine [facility] Em ergency Dept [address] [place] [address] Fax: Encounter Details Date Type Department Care Team Description 12/11/2019 Emergency ADC-Emergency Puneet Gross FNP COPD exacerbation (Primary Dx); Department [address] [facility] Shortness of breath; [address] [place] [address] Chest sang n, unspecified type; Drive [id number] Right flank pain; [place] [address] Renal colic on right side; [phone] Methamphe tamine use; Acute cystitis without hematuria Allergies Active Allergy Reactions Severity Noted Date Comments Iodine And Iodide Itching Medium 12/20/2016 Containing Products Iodinated Contrast Other - See comments High 06/23/2019 C hildhood Allergy - Media Unknown Reactio n Iodine Itching Low 06/16/2005 Morphine Itching 05/14/2016 Morpholine Analogues Swelling High 08/27/2016 documented as of this encounter (statuses as of 12/11/2019) Medications Medication Sig Dispensed Refills Start Date End Date Status atorvastatin 40 mg Take 1 tablet by 30 tablet 11 02/16/2017 Active tablet mouth at bedtime. aspirin 81 mg Take 1 tablet by 30 tablet 11 03/11/2017 Active chewable tablet mouth daily. budesonide-formoterol Inhale 2 Puffs 2 10.2 g 0 04/06/2017 Active 160-4.5 mcg/actuation (two) times inhaler daily. omeprazole 20 mg Take 20 mg by 0 Active capsule mouth daily. tiotropium bromide Inhale. 0 A ctive (SPIRIVA RESPIMAT INHALE) lisinopril 20 mg Take 1 tablet by 60 tablet 5 07/15/2018 Active tabletIndications: mouth daily. Smoking, Essential hypertension metoprolol tartrate Take 1 tablet by 60 tablet 5 07/15/2018 Active 25 mg mouth 2 (two) tabletIndications: times daily. Smoking, Essential hypertension nitroglycerin 0.[address] 1 tablet 1 Bottle 5 07/15/2018 Active sublingual under the tongue tabletIndications: every 5 (five) Chest pain, minutes as unspecified type needed for Chest pain. divalproex (DEPAKOTE) Take 1 tablet by 60 tablet 1 08/15/2018 Active 125 mg EC mouth every 12 tabletIndications: (twelve) hours. Headache syndrome, complicated Nicotine 21-14-7 Apply 1 Patch to 56 Patch 0 10/03/2018 Active mg/24 hr skin daily. PTDSIndications: Chronic obstructive pulmonary disease, unspecified COPD type albuterol 2.5 mg /3 Inhale 3 mL 125 Vial 11 10/03/2018 Active mL (0.083 %) every 4 (four) nebulizer hours as needed solutionIndications: for Wheezing or Chronic obstructive Shortness of pulmonary disease, Breath. unspecified COPD type albuterol 90 Inhale 2 Puffs 8.5 g 11 10/03/2018 A ctive mcg/actuation every 6 (six) inhalerIndications: hours as needed Chronic obstructive for Wheezing or pulmonary disease, Shortness of unspecified COPD type Breath. gabapentin 600 mg Take 1 tablet by 90 tablet 2 11/20/2018 Active tabletIndications: mouth 3 (three) Cervical spondylosis times daily. without myelopathy ibuprofen 800 mg Take 1 tablet by 60 tablet 2 11/20/2018 Active tabletIndications: mouth 2 (two) Bilateral chronic times daily with knee pain, Chronic meals as needed pain of both (pain). shoulders tiZANidine 2 mg Take 1 capsule 90 capsule 2 11/20/2018 Active capsuleIndications: by mouth 3 Cervical spondylosis (three) times without myelopathy daily as needed for Muscle Spasms. traMADol 50 mg Take 1 tablet by 15 tablet 0 04/25/2019 Active tabletIndications: mouth every 6 Other chest pain (six) hours as needed for Pain (scale 4-6). ighhbboj-iogbcehtn-bo Place 3 Drops in 10 mL 0 06/30/2019 Active drocortisone otic both ears 4 solutionIndications: (four) times Acute ear pain, daily. bilateral, Vertigo, Acute otitis externa of both ears, unspecified type meclizine 25 mg Take 1 tablet by 20 tablet 0 06/30/2019 Active tabletIndications: mouth every 6 Vertigo, Acute otitis (six) hours. externa of both ears, unspecified type predniSONE 20 mg Take 2 tablets 10 tablet 0 12/11/2019 020 Active tabletIndications: by mouth daily COPD exacerbation for 5 days. azithromycin 250 mg Take 1 tablet by 1 Package 0 12/11/2019 Active tabletIndications: mouth daily. COPD exacerbation Take 500 mg day 1, then 250 mg days 2 to 5. Nitrofurantoin&Nit. Take 1 capsule 10 capsule 0 12/11/201905/2019 Active Macrocryst 100 mg by mouth 2 (two) capsuleIndications: times daily for Acute cystitis 5 days. without hematuria documented as of this encounter (statuses as of 12/11/2019) Active Problems Problem Noted Date Essential hypertension 04/25/2019 Anxiety 04/25/2019 COPD exacerbation 10/21/2018 BiPAP (biphasic positive airway pressure) dependence 1 06/05/2016 JAIR (acute kidney injury) 04/04/2017 Acute respiratory failure with hypercapnia 04/04/2017 Left ureteral stone 03/20/2017 Overview: Added automatically from request for magdi wolfe [id number] Ureterolithiasis 03/11/2017 MRSA bacteremia 02/04/2017 Shoulder injury 02/03/2017 Nephrolithiasis 01/29/2017 Altered mental status 07/01/2016 Overdose 06/03/2016 Back pain 01/26/2016 Fracture of spine, lumbar, without spinal cord injury, closed 01/23/2016 Closed fracture of nasal bone with routine healing 01/2016 Closed fracture of orbital floor 01/23/2016 Maxillary sinus fracture, closed, initial encounter Tobacco use disorder 06/25/2005 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 alvino ICD10 Diagnosis Term 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 Distributor Operator Utility Anemia 06/25/2005 Overview: ICD10 Diagnosis Term Tar Distributor Operator Utility Blood in stool 06/25/2005 Overview: guaic + Hyposmolality and/or hyponatremia 06/25/2005 Calculus of kidney 06/25/2005 Fracture of humerus 06/25/2005 Overview: right ICD10 Diagnosis Term Tar Distributor Operator Utility Cellulitis and abscess of hand, except fingers and karyn mb 06/25/2005 Overview: left Other specified disorders of rotator cuff syndrome of shoulder and allied 06/25/2005 disorders Overview: right 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/2005 Overview: Left prosthesis Osteoporosis 06/25/2005 Overview: ICD10 Diagnosis Term Tar Distributor Operator Utility Osteoarthritis of shoulder 06/16/2005 Overview: ICD10 Diagnosis Term Tar Distributor Operator Utility Chest pain 06/16/2005 Overview: ICD10 Diagnosis Term Tar Distributor Operator Utility documented as of this encounter (statuses as of 12/11/2019) Immunizations Name Administration Dates Next Due Influenza High Dose 02/16/2017 Influenza Virus Vaccine Quad IM 3+ YRS 01/26/2019, 7 Pneumococcal 13 Conjugate, PCV13 (Prevnar 13) 07/07/2018 Pneumococcal Polysaccharide, PPSV23 (PNEUMOVAX) 07/04/2016 Td 01/23/2016 Tetanus/Diptheria 01/23/2016 documented as of this encounter Social History Tobacco Use Types Packs/Day Years Used Date Current Every Day Smoker Cigarettes 0.5 50 Smokeless Tobacco: Never Used Comments: 1/2 pk/day x54 years Alcohol Use Drinks/Week oz/Week Comments No Sex Assigned at Date Recorded Not on file COVID-19 Exposure Response Date Recorded In the last month, have you been in contact Unable to assess 12/11/2019 5:50 PM CDT with someone who was confirmed or suspected to have Coronavirus / COVID-19? documented as of this encounter Last Filed Vital Signs Vital Sign Reading Time Taken Comments Blood Pressure 144/74 12/11/2019 9:00 PM CDT Pulse 84 12/11/2019 9:00 PM CDT Temperature 36.5 C (97.7 F) 12/11/2019 6:01 PM CDT Respiratory Rate 21 12/11/2019 9:00 PM CDT Oxygen Saturation 93% 12/11/2019 9:00 PM CDT Inhaled Oxygen Concentration - - Weight 59 kg (130 lb) 12/11/2019 6:01 PM CDT Height - - Body Mass Index 22.31 06/30/2019 5:07 PM CDT documented in this encounter Discharge Instructions InstructionsPuneet Gross FNP - 12/11/2019 DIAGNOSIS ICD-10-CM ICD-9-CM 1. COPD exacerbation J44.1 491.21 2. Shortness of breath R06.02 786.05 3. Chest pain, unspecified type R07.9 786.50 4. Right flank pain R10.9 789.09 5. Renal colic on right side N23 788.0 NO LIFE-THREATENING FINDINGS ON TODAY'S EXAM. SPECIAL CARE INSTRUCTIONS: Stay well hydrated Follow up with PCP Return to ER as needed Continue breathing treatments as needed at home Complete steroids FOLLOW-UP RECOMMENDATIONS: RECOMMEND FOLLOW-UP WITH A PRIMARY CARE PROVIDER OR SPECIALIST IN 2-5 DAYS, ESPECIALLY IF NO IMPROVEMENT IN SYMPTOMS. TO FOLLOW-UP WITHIN THE [facility], TRY THESE OPTIONS (CLINIC APPOINTMENTS AVAILABLE ON [id number] BASIS): 1. SCHEDULE AN APPOINTMENT ONLINE AT [email or web address][facility] 2. OR CALL THE [facility] AT OR 3. OR CALL YOUR [facility] PHYSICIAN'S OFFICE DIRECTLY IF YOU ARE ALREADY AN ESTABLISHED [facility] PATIENT. OR, YOU MAY FOLLOW-UP WITH A PROVIDER OF YOUR CHOICE, SUCH : 1. A PHYSICIAN OF YOUR CHOICE 2. [facility], . LOCATIONS IN [facility] 3. [facility], [address] [place], [place]; [phone] RETURN TO ER FOR WORSENING OF SYMPTOMS. AttachmentsThe following attachments cannot be sent through Care Everywhere. COPD, What Is ([place])documented in this encounter ED Notes Miguelina Sidhu RN - 12/11/2019 6:03 PM CDTPatient was given Asprin 325mg by ems. Miguelina Sidhu RN - 12/11/2019 5:59 PM CDTPatient arrived via [facility] with c/o cp, sob and right flank pain x4 days. documented in this encounter Miscellaneous Notes ED Nurse Note - Lashon Mason RN - 12/11/2019 10:03 PM CDTPt discharged, assisted to lobby to wait for a ride to escort her home. Pt ambulatory, appears in noapparent distress. D Nurse Note - Marilyn Spain RN - 12/11/2019 9:28 PM CDTPatient attempting to find ride home while fluids are finishing infusing. Patient given information about local food pantries by primary nurse. D Nurse Note - Stef Delacruz RN - 12/11/2019 9:22 PM CDTPt given printed and verbal discharge instructions regarding COPD, encouraged hydration, Pt encouraged to follow up with pcp Advised to seek medical attention for new/prolonged/worsening of symptoms. No adverse reaction to meds given in ER noted upon discharge. PIV d'cd, dressing to site, catheter in tact. Pt verbalized understanding of instructions, awake alert oriented, resp reg unlabored, skin w/d, color appropriate for race, moves all ext well, pt leaving amb with steady gait, in no apparent distress, D Nurse Note - Kristen Dugan, RN - 12/11/2019 8:46 PM CDTPatient requesting sandwich and juice. documented in this encounter Plan of Treatment Date Type Specialty Care Team Description 01/04/2020 Office Visit Endocrinology Diabetes & Kesired Leonarda davis MD Metabolism [address] [place] [address] Health Maintenance Due Date Last Done Comments HEPATITIS C (HCV) SCREEN 1950 Depression Screening 1962 DTaP,Tdap,and Td Vaccines (1 - Tdap) 09/27/1970 01/23/2016 Breast Cancer Screening (MAMMOGRAM) 1991 COLON CANCER SCREENING ANNUAL 09/27/2001 FIT/FOBT COLON CANCER SCREENING FIT DNA EVERY 09/27/2001 3 YEARS COLON CANCER SCREENING SIGMOIDOSCOPY 09/27/2001 EVERY 5 YEARS COLONOSCOPY 09/27/2001 Colorectal Cancer Screening 09/27/2001 Zoster Recombinant Vaccine (SHINGRIX) 09/27/2001 (1 of 2) LUNG CANCER SCREEN: Recommended for 09/27/2006 06/27/2005 age 55-80 with 30 + pack year history Osteoporosis Screening 09/27/2016 Medicare Wellness Visit 07/05/2019 07/04/2018 INFLUENZA VACCINE (#1) 2019 01/26/2019, 02/16/2017, 07/04/2016 PNEUMOCOCCAL VACCINES 65+ (2 of 2 - 07/04/2021 07/07/2018, 07/04/2016 PPSV23) documented as of this encounter Goals Goal Patient Goal Associated Recent Patient-Stated? Author Type Problems Progress Quit using Tobacco Use No Duenas, tobacco Sally Alanis MA (cigarettes, smokeless, etc) documented as of this encounter Procedures Procedure Name Priority Date/Time Associated Diagnosis Comme nts ADC / LCC - DRUG STAT 12/11/2019 8:08 Shortness of b reath Results for this SCREEN TRIAGE PM CDT COPD exacerbatio n procedure are in Chest pain, the results unspecified type section. Right flank pain URINALYSIS STAT 12/11/2019 8:08 Right flank pain Results for this PM CDT procedure are i n the results section. CBC WITH DIFF STAT 12/11/2019 8:08 Shortness of br eath Results for this PM CDT COPD exacerbatio n procedure are in Chest pain, the results unspecified type section. COMP. METABOLIC STAT 12/11/2019 8:08 Shortness of br eath Results for this PANEL (26648) PM CDT COPD exacerbatio n procedure are in Chest pain, the results unspecified type section. TROPONIN I STAT 12/11/2019 8:08 Shortness of br eath Results for this PM CDT COPD exacerbatio n procedure are in Chest pain, the results unspecified type section. COVID-19 (ID NOW STAT 12/11/2019 8:07 Shortness of b reath Results for this RAPID TESTING) PM CDT COPD exacerbatio n procedure are in Chest pain, the results unspecified type section. CT ABDOMEN PELVIS WO STAT 12/11/2019 7:00 Right flank pain Results for this CONTRAST PM CDT procedure are i n the results section. XR CHEST 1 VW STAT 12/11/2019 6:38 Shortness of br eath Results for this PM CDT COPD exacerbatio n procedure are in Chest pain, the results unspecified type section. EKG-12 LEAD HARSHIL 12/11/2019 6:09 PM CDT documented in this encounter Results ADC / LCC - DRUG SCREEN TRIAGE (12/11/2019 8:08 PM CDT) BENZO U Negative Negative [facility] ANURADHA U Negative Negative [facility] AMPHET Presumptive Negative [facility] Positive () HOSPITAL [facility] THC Negative Negative [facility] METHADONE Negative Negative [facility] Meth U Presumptive Negative [facility] Positive () [facility] OPIATES Negative Negative [facility] Cocaine Metabolite Negative Negative [facility] PROPOXY Negative Negative [facility] Tric U Negative Negative [facility] PCP Negative Negative [facility] OXYCOD Negative Negative [facility] Specimen Urine - URINE, CLEAN CATCH Narrative Performed At Urine Drug Cutoff Ranges [facility] Benzodiazepines: 150 ng/mL Barbiturates: 200 ng/mL Amphetamine: 500 ng/mL Cannabinoids: 50 ng/mL Methadone: 200 ng/mL Methamphetamine: 500 ng/mL Opiates: 100 ng/mL or 2000 ng/mL Cocaine: 150 ng/mL Propoxyphene: 300 ng/mL Tricyclics: 300 ng/mL Oxycodone: 100 ng/mL PCP: 25 ng/mL The results are to be used only for medical (i.e., treatment) purposes. Unconfirmed screening results must not be used for non-medical purposes (e.g., employment testing, legal testing). Performing Organization Address [facility] Phone Number [facility] CLIA: [id number] [place] [address] URINALYSIS (12/11/2019 8:08 PM CDT) Pathologist Sig nature APPEARANCE Clear Clear [facility] COLOR Yellow Yellow [facility] PH 6.0 4.8 - 8.0 [facility] SP GRAVITY 1.015 1.003 - 1.030 [facility] GLU U QUAL Normal Normal [facility] BLOOD 3+ (A) Negative [facility] KETONES Negative Negative [facility] PROTEIN 30 mg/dL (A) Negative [facility] UROBILIN Normal Normal [facility] BILIRUBIN Negative Negative [facility] NITRITE Negative Negative [facility] LEUK RASHID 250/uL (A) Negative [facility] RBC/HPF >182 (H) 0 - 3 HPF [facility] WBC/HPF 41 (H) 0 - 5 HPF [facility] BACTERIA Few (A) Negative [facility] MUCOUS Slight (A) Negative LPF [facility] SQ EPITH <1 HPF [facility] HYAL CAST 4 (H) <=2 LPF [facility] Specimen Urine - URINE, CLEAN CATCH Performing Organization Address [facility] Phone Number [facility] CLIA: [id number] [place] [address] TROPONIN I (12/11/2019 8:08 PM CDT) Pathologist Sig nature TROPONIN I <0.012 <=0.034 ng/mL [facility] Specimen Blood - VENOUS Narrative Performed At Equal or Less than 0.034 ng/ml---Normal [facility] Note: Cardiac troponin begins to rise 3-4 hours after the onset of ischemia. Repeat in 4-6 hours if the sample was drawn within 3-4 hours of the onset of the symptom and found normal. Between 0.035 and 0.120 ng/mL--- Borderline. Questionable myocardial injury or necros is Note: Serial measurement may be necessary to confirm or exclude the diagnosis of myocardial injury or necrosis; Clinical correlation (symptoms, EKGs, imaging studies, and others) required; Repeat in 4-6 hours if clinically indicated. Equal or Higher than 0.121 ng/mL---Abnormal. Myocardial Injury or Necrosis Likely Biotin has been reported to cause a negative bias, interpret results relative to patient's use of biotin. Performing Organization Address City/State/Zipcode Phone Number [facility] CLIA: [id number] [place] [address] [address] COMP. METABOLIC PANEL (22574) (12/11/2019 8:08 PM CDT) NA 139 135 - 145 [facility] mmol/L [facility] K 3.8 3.5 - 5.0 [facility] mmol/L [facility] CL 110 (H) 98 - 108 mmol/L [facility] CO2 TOTAL 22 (L) 23 - 31 mmol/L [facility] AGAP 7 2 - 16 [facility] BUN 38 (H) 7 - 23 mg/dL [facility] GLUCOSE 95 70 - 110 mg/dL [facility] CREATININE 1.08 (H) 0.50 - 1.04 [facility] mg/dL [facility] TOTAL BILI 0.4 0.1 - 1.1 mg/dL [facility] CALCIUM 9.5 8.6 - 10.6 [facility] mg/dL [facility] T PROTEIN 7.2 6.3 - 8.2 g/dL [facility] ALBUMIN 4.1 3.5 - 5.0 g/dL [facility] ALK PHOS 109 34 - 122 U/L [facility] ALTv 72 (H) 5 - 35 U/L [facility] AST(SGOT) 60 (H) 13 - 40 U/L [facility] eGFR Calculation 50.5 mL/min/1.73m2 [facility] French) eGFR Calculation 61.1 mL/min/1.73m2 [facility] () [facility] Specimen Blood - VENOUS Narrative Performed At [facility] Glomerular Filtration Rate (GFR) [facility] and Staging of Kidney Disease* + + +- + | GFR (mL/min/1.73 m2) | With Kidney Damage | Without Kidney Damage + + +- + | >90 | Stage one | Normal + + +- + | 60-89 | Stage two | Decreased GFR + + +- + | 30-59 | Stage three | Stage three + + +- + | 15-29 | Stage four | Stage four + + +- + | <15 (or dialysis) | Stage five | Stage five + + +- + *Each stage assumes the associated GFR level has been in effect for at least three months. Stages 1 to 5, with or without kidney disease, indicate chronic kidney disease. Notes: Determination of stages one and two (with eGFR >59mL/min/1.73 m2) requires estimation of kidney damage for at least three months as defined by structural or functional abnormalities of the kidney, manifested by either: Pathological abnormalities or Markers of kidney damage (including abnormalities in the composition of the blood or urine or abnormalities in imaging tests). Performing Organization Address City/State/Zipcode Phone Number [facility] CLIA: [id number] [place] [address] CBC WITH DIFF (12/11/2019 8:08 PM CDT) Pathologist [facility] nature WBC 4.77 4.30 - 11.10 [facility] 10*3/L [facility] RBC 4.67 3.93 - 5.25 [facility] 10*6/L [facility] HGB 12.8 11.6 - 15.0 [facility] g/dL [facility] HCT 39.8 35.7 - 45.2 % [facility] MCV 85.2 80.6 - 95.5 fL [facility] MCH 27.4 25.9 - 32.8 pg [facility] MCHC 32.2 31.6 - 35.1 [facility] g/dL [facility] RDW-SD 47.8 39.0 - 49.9 fL [facility] RDW-CV 15.9 (H) 12.0 - 15.5 % [facility] PLT 212 166 - 358 [facility] 10*3/L [facility] MPV 9.3 (L) 9.5 - 12.9 fL [facility] NRBC/100 WBC 0.0 0.0 - 10.0 /100 [facility] WBCs [facility] NRBC x10^3 <0.01 10*3/L [facility] GRAN MAT (NEUT) % 44.9 % [facility] IMM GRAN % 0.20 % [facility] LYMPH % 40.0 % [facility] MONO % 10.9 % [facility] EOS % 3.4 % [facility] BASO % 0.6 % [facility] GRAN MAT x10^3(ANC) 2.14 1.88 - 7.09 [facility] 10*3/uL [facility] IMM GRAN x10^3 <0.03 0.00 - 0.06 [facility] 10*3/uL [facility] LYMPH x10^3 1.91 1.32 - 3.29 [facility] 10*3/uL [facility] MONO x10^3 0.52 0.33 - 0.92 [facility] 10*3/uL [facility] EOS x10^3 0.16 0.03 - 0.39 [facility] 10*3/uL [facility] BASO x10^3 0.03 0.01 - 0.07 [facility] 10*3/uL [facility] Specimen Blood - VENOUS Performing Organization Address City/State/Zipcode Phone Number [facility] CLIA: [id number] [place], [place] [id number] LABORATORY [address] COVID-19 (ID NOW RAPID TESTING) (12/11/2019 8:07 PM CDT) SARS-CoV-2 Rapid ID Not Detected Not Detected [facility] Specimen Swab - NASOPHARYNGEAL SWAB Narrative Performed At ID NOW COVID-19 Assay is an isothermal nucleic [facility] acid amplification test intended for the qualitative detection of nucleic acid from SARS-CoV-2 viral RNA in nasopharyngeal (LEASE PICKER) specimens. It is used under Emergency Use Authorization (EUA) by FDA. The limit of detection (LOD) of the assay is 125 Genome Equivalents/mL. A positive result is indicative of the presence of SARS-CoV-2 RNA. Clinical correlation with patient history and other diagnostic information is necessary to determine patient infection status. A negative (Not Detected) result does not preclude SARS-CoV-2 infection. In patients with clinical symptoms and other tests that are consistent with SARS-CoV-2 infection, negative results should be treated as presumptive negative and a new specimen should be tested with alternative PCR molecular test. Invalid: Please collect a new specimen for repeat patient testing if clinically indicated. Performing Organization Address City/State/Zipcode Phone Number [facility] CLIA: [id number] [place] [address] ABDOMEN PELVIS WO CONTRAST (12/11/2019 7:00 PM CDT) Specimen Impressions Performed At PACS/VR/DOSE Progression of nephrolithiasis. Kidney stones are more numerous and larger compared to exam from 2018. However, the re is no obstructive disease, no lithiasis along the ureters or bladder. Narrative Performed At EXAM: CT ABDOMEN AND PELVIS WITHOUT CONT RAST PACS/VR/DOSE HISTORY: Flank pain, stone disease suspe cted. COMPARISON: 04/11/2018 TECHNIQUE AND FINDINGS: Contiguous axial imaging from the level of the lung bases through the pubic symphysis was performed withou t contrast. Coronal and sagittal reconstructions were obtain ed. DOSE: DLP is 204 mGy/cm. FINDINGS: LOWER THORAX: The lungs bases are clear. No cardiomegaly. LIVER: No focal hepatic lesions. No bi liary ductal dilation. GALLBLADDER AND BILIARY TREE: No biliary ductal dilati on. No gallbladder wall thickening. SPLEEN: No splenomegaly. PANCREAS: No ductal dilation or masses. ADRENAL GLANDS: No adrenal nodules. KIDNEYS: The kidneys have normal volume and have multiple lithiasis that appears progressed, larger compared to e xam from 2018. Right kidney lithiasis from the upper to the lower sally e measure 9 mm, 6, 6, 9, 4, 7, 6, 6, and 4 mm. Left lithiasis from the upper to lower p ole measure 10 mm, 7, 2, 4 and 6 mm. PERITONEUM AND RETROPERITONEUM: No free air or fluid. LYMPH NODES: No lymphadenopathy. GI TRACT: No dilation or wall thickening . PELVIS/BLADDER: Unremarkable. VESSELS: Aorta and iliac arteries have n ormal caliber with few scattered calcifications. BONES AND SOFT TISSUES: No suspicious ly tic or sclerotic bony lesions. Moderate thoracolumbar spondylosis. Grad e 1 anterolisthesis of L5 on S1. T11, L1 and L2 have partial compression fractures with height loss. Procedure Note [facility], Radiant Results Inft User - 2019 7:34 PM CDT EXAM: CT ABDOMEN AND PELVIS WITHOUT CONTRAST HISTORY: Flank pain, stone disease suspe cted. COMPARISON: 04/11/2018 TECHNIQUE AND FINDINGS: Contiguous axial imaging from the level of the lung bases through the pubic symphysis was pe rformed without contrast. Coronal and sagittal reconstructions were obtain ed. DOSE: DLP is 204 mGy/cm. FINDINGS: LOWER THORAX: The lungs bases are clear. No cardiomegaly. LIVER: No focal hepatic lesions. No klaus iary ductal dilation. GALLBLADDER AND BILIARY TREE: No biliary ductal dilation. No gallbladder wall thickening. SPLEEN: No splenomegaly. PANCREAS: No ductal dilation or masses. ADRENAL GLANDS: No adrenal nodules. KIDNEYS: The kidneys have normal volume and have multiple lithiasis that appears progressed, larger compared to e xam from 2018. Right kidney lithiasis from the upper to the lower pole measure 9 mm, 6, 6, 9, 4, 7, 6, 6, and 4 mm. Left lithiasis from the upper to lower p ole measure 10 mm, 7, 2, 4 and 6 mm. PERITONEUM AND RETROPERITONEUM: No free air or fluid. LYMPH NODES: No lymphadenopathy. GI TRACT: No dilation or wall thickening . PELVIS/BLADDER: Unremarkable. VESSELS: Aorta and iliac arteries have n ormal caliber with few scattered calcifications. BONES AND SOFT TISSUES: No suspicious ly tic or sclerotic bony lesions. Moderate thoracolumbar spondylosis. Grad e 1 anterolisthesis of L5 on S1. T11, L1 and L2 have partial compression fractures with height loss. IMPRESSION Progression of nephrolithiasis. Kidney s tones are more numerous and larger compared to exam from 2018. However, the re is no obstructive disease, no lithiasis along the ureters or bladder. Performing Organization Address City/State/Zipcode Phone Number PACS/VR/DOSE XR CHEST 1 VW (12/11/2019 6:38 PM CDT) Specimen Impressions Performed At PACS/VR/DOSE Chronic emphysematous changes. No pleural effusion or consolidative pro cess. Preliminary Report Dictated by Resident: Leoncio Pavon MD., have reviewed this study and agree with the above report. Narrative Performed At XR CHEST 1 VW PACS/VR/DOSE Comparison: Radiograph 04/24/2019 History: shortness of breath Technique: Single frontal radiograph Findings: The lungs are hyperinflated with flatten ing of the hemidiaphragm and diffuse interstitial opacities. No pleural effusion, f ocal consolidation, or pneumothorax is identified. The cardiomediastinal silhouette is norm al in size. The aortic knob is mildly prominent and partially calcified . No acute osseous abnormality is present. Prior bilateral shoulder arthroplasty. Procedure Note [facility], Radiant Results Inft User - 2019 7:46 PM CDT XR CHEST 1 VW Comparison: Radiograph 04/24/2019 History: shortness of breath Technique: Single frontal radiograph Findings: The lungs are hyperinflated with flatten ing of the hemidiaphragm and diffuse interstitial opacities. No pleur al effusion, focal consolidation, or pneumothorax is identified. The cardiomediastinal silhouette is norm al in size. The aortic knob is mildly prominent and partially calcified . No acute osseous abnormality is present. Prior bilateral shoulder arthroplasty. IMPRESSION Chronic emphysematous changes. No pleural effusion or consolidative pro cess. Preliminary Report Dictated by Resident: Leoncio Pavon MD., have r eviewed this study and agree with the above report. 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 Yes methylprednisolone sod succ (SOLU-MEDROL) Given 12/11/2019 8:07 PM CDT 125 mg injection 125 mg 125 mg, IV Piggyback, ONCE, 1 dose, Sat12/11/19 at 1915, STAT NaCl 0.9% (NS) bolus infusion New Bag 12/11/2019 8:59 PM CDT 1,000 mL 999 mL/hr 1,000 mL at 999 mL/hr, 1,000 mL, IV Infusion, ONCE, 1 dose, Sat12/11/19 at 2045, STAT ondansetron (ZOFRAN (PF)) injection 4 mg Given 12/11/2019 8:07 PM CDT 4 mg 4 mg, Slow IV Push, ONCE, 1 dose, Sat12/11/19 at 2115, HARSHIL documented in this encounter Additional Health Concerns Infection Onset Date Last Indicated Resolved Time COVID-19 Rule Out 12/11/2019 12/11/2019 12/11/2019 8: 39 PM CDT documented as of this encounter Insurance Payer Benefit Plan / Subscriber ID Effective Phone Address T ype Group Dates HUMANA - HUMANA CHOICE [id number] 2019-Pres Me dicare Adv MANAGED ent PPO MEDICARE FAJARDO FAJARDO [id number] 2016-Pres [address] Medica id HEALTHCARE - [place]ALTHCARE [place] [id number] MANAGED MEDICAID [place], MEDICAID [place] documented as of this encounter"
[2020-03-01 16:34] LABS: Urine Blood 2+ (NEG); Urine Glucose NEGATIVE (NEG); Urine Protein 2+ (NEG); Urine pH 6.5 (5.0-7.0)
--- NOTE | 2020-03-01 16:57 | RAD REPORT ---
EXAM DESCRIPTION: RAD - Chest Single View - 03/01/2020 4:29 pm CLINICAL HISTORY: SOB Chest pain. COMPARISON: Chest Single View dated 12/17/2016; Chest Single View dated 11/23/2016; Chest Single View d ated 10/07/2016; Chest Single View dated 09/09/2016 FINDINGS: Portable technique limits examination quality. The lungs are grossly clear. The heart is normal in size. Tortuous thoracic aorta is noted.Hardware i s present in both proximal humeri. IMPRESSION: No acute intrathoracic process suspected.
[2020-03-01 17:03] LABS: Absolute Lymphocytes (CBC) 1.5 K/uL (0.7-4.9); Basophils % 0.6 % (0-1.3); Hematocrit 38.1 % (36.0-45.0); Lymphocytes % 32.3 % (15.3-44.8); MPV 7.6 fL (7.6-11.3); RBC Red Blood Cell Count 4.57 M/uL (3.86-4.86)
[2020-03-01] MEDS ORDERED: MEPERIDINE HCL 25 MG/ML SYR ONE (17:04)
[2020-03-01] MEDS ORDERED: ONDANSETRON 4 MG/2 ML VIAL ONE ×2 (17:04→20:58)
[2020-03-01 17:09] LABS: Protime INR 0.96
[2020-03-01 17:19] LABS: ALT/SGPT 37 U/L (12-78); AST/SGOT 35 U/L (15-37); Alkaline Phosphatase 126 U/L (45-117); BUN Blood Urea Nitrogen 20 mg/dL (7-18); Bicarbonate 22 mmol/L (21-32); Bilirubin Direct < 0.1 mg/dL (0-0.2); Bilirubin Total 0.2 mg/dL (0.2-1.0); Glucose Level 101 mg/dL (74-106); Magnesium 1.9 mg/dL (1.8-2.4); NT PRO-BNP 771 pg/mL (<125); Potassium 3.7 mmol/L (3.5-5.1); Protein, Total 7.5 g/dL (6.4-8.2); Sodium Level 143 mmol/L (136-145); Troponin (Emerg Dept Use Only) < 0.02 ng/mL (0.0-0.045)
--- NOTE | 2020-03-01 17:21 | RAD REPORT ---
EXAM DESCRIPTION: CT - Stone Protocol - 03/01/2020 5:06 pm CLINICAL HISTORY: Flank pain. low abdominal and flank pain COMPARISON: Stone Protocol dated 12/17/2016 TECHNIQUE: Axial images were obtained without oral or IV contrast. Lack of contrast limits solid org an and vascular assessment. The [id number] spans the entirety of the system partially obscuring uppermost abdomen and lung bases. Coronal reformatted images were obtained and reviewed. All CT scans are performed using dose optimization technique as appropriate and may include automated exposure control or mA/KV adjustment according to patient size. FINDINGS: The inferior lung galindo are clear. Imaged portions of the liver and spleen show no suspicious findings on non-contrast imaging. The panc reas and adrenal glands are normal. No pathologic lymphadenopathy in the abdomen or pelvis. Bilateral renal calculi are present including several small stones in the upper pole left renal calyx as well as small punctate stones in right kidney, largest measuring 4-5 mm. No hydronephrosis. No bowel obstruction, free air, free fluid or abscess. The appendix appears absent.Sigmoid diverticul osis coli is present without evidence of acute diverticulitis. Mild wall thickening is seen in the re gion of the sigmoid colon. Moderate lumbosacral degenerative changes. Mild anterior wedge compression deformities affect L1 and L2, likely chronic. IMPRESSION: Bilateral caliceal nephrolithiasis is present without hydronephrosis. Sigmoid diverticulosis coli is present without evidence of diverticulitis. There is mild wall thicken ing seen in the region of the sigmoid colon followup colonoscopy would be suggested if not recently p erformed.
--- NOTE | 2020-03-01 18:12 | EDPHYS ---
Physician Documentation [facility] Name: Gayle Wallace Age: 69 yrs Sex: Female : 1950 Arrival Date: 03/01/2020 Time: 15:27 Bed 3 Private MD: ED Physician Puneet Barboza HPI: 03/02 06:46 This 69 yrs old Female presents to ER via Ambulatory with complaints of kdr Shortness Of Breath, Back Pain, Flank Pain. 06:46 The patient has shortness of breath at rest, with light activity. Onset: The kdr symptoms/episode began/occurred gradually, 1 week(s) ago. Duration: The symptoms are continuous, and are steadily getting worse. The patient's shortness of breath is aggravated by nothing, is alleviated by nothing. Associated signs and symptoms: Pertinent positives: non-productive cough, Pertinent negatives: chest pain, dizziness, fever, hemoptysis, loss of consciousness, nausea, numbness in extremities, visual changes, vomiting. Severity of symptoms: At their worst the symptoms were moderate severe incapacitating just prior to arrival, today, in the emergency department the symptoms have improved mildly. The patient has experienced similar episodes in the past, chronically. The patient has not recently seen a physician. The patient is also c/o bilateral CVA tenderness and is suspicions for recurrent kidney stones. Historical: - Allergies: 03/01 15:45 Iodine; zb 15:45 Morphine; zb - PMHx: 15:45 Anxiety; Arthritis; COPD; Hypertension; Kidney stones; Myocardial infarction; zb - PSHx: 15:45 Hysterectomy; Tonsillectomy; Appendectomy; 2 left shoulder replacements; RIGHT knee zb replacement; Lithotripsy; - Immunization history:: Adult Immunizations unknown. - Social history:: Smoking status: Patient reports the use of cigarette tobacco products, denies chronic smoking, but will smoke occasionally. ROS: 03/02 06:46 Constitutional: Negative for fever, chills, and weight loss, Eyes: Negative for injury, kdr pain, redness, and discharge, ENT: Negative for injury, pain, and discharge, Neck: Negative for injury, pain, and swelling, Cardiovascular: Negative for chest pain, palpitations, and edema, Abdomen/GI: Negative for abdominal pain, nausea, vomiting, diarrhea, and constipation, : Negative for injury, bleeding, discharge, and swelling, MS/Extremity: Negative for injury and deformity, Skin: Negative for injury, rash, and discoloration, Neuro: Negative for headache, weakness, numbness, tingling, and seizure activity. Psych: Negative for depression, anxiety, suicide ideation, homicidal ideation, and hallucinations, Allergy/Immunology: Negative for hives, rash, and allergies, Endocrine: Negative for neck swelling, polydipsia, polyuria, polyphagia, and marked weight changes, Hematologic/Lymphatic: Negative for swollen nodes, abnormal bleeding, and unusual bruising. Respiratory: Positive for cough, with no reported sputum, dyspnea on exertion, shortness of breath, at rest. wheezing, Negative for hemoptysis, orthopnea. Back: Positive for pain at rest, of the mid back area. Exam: 03/01 17:05 ECG was reviewed by the Attending Physician. kdr 03/02 06:46 Constitutional: This is a well developed, well nourished patient who is awake, alert, kdr and in no acute distress. Head/Face: Normocephalic, atraumatic. Eyes: Pupils equal round and reactive to light, extra-ocular motions intact. Lids and lashes normal. Conjunctiva and sclera are non-icteric and not injected. Cornea within normal limits. Periorbital areas with no swelling, redness, or edema. Neck: Trachea midline, no thyromegaly or masses palpated, and no cervical lymphadenopathy. Supple, full range of motion without nuchal rigidity, or vertebral point tenderness. No Meningismus. Chest/axilla: Normal chest wall appearance and motion. Nontender with no deformity. No lesions are appreciated. Cardiovascular: Regular rate and rhythm with a normal S1 and S2. No gallops, murmurs, or rubs. Normal PMI, no JVD. No pulse deficits. Abdomen/GI: Soft, non-tender, with normal bowel sounds. No distension or tympany. No guarding or rebound. No evidence of tenderness throughout. Skin: Warm, dry with normal turgor. Normal color with no rashes, no lesions, and no evidence of cellulitis. MS/ Extremity: Pulses equal, no cyanosis. Neurovascular intact. Full, normal range of motion. Neuro: Awake and alert, GCS 15, oriented to person, place, time, and situation. Cranial nerves II-XII grossly intact. Motor strength 5/5 in all extremities. Sensory grossly intact. Cerebellar exam normal. Normal gait. Psych: Awake, alert, with orientation to person, place and time. Behavior, mood, and affect are within normal limits. Respiratory: mild respiratory distress is noted, moderate respiratory distress is noted, Respirations: labored breathing, that is mild, pursed lip breathing, that is mild, shallow respirations, that is mild, Breath sounds: wheezing: that is mild, is heard diffusely. Vital Signs: 03/01 15:40 BP 163 / 95; Pulse 80; Resp 18; Temp 97.0; Pulse Ox 95% ; Weight 56.7 kg; Height 5 ft. zb 4 in. (162.56 cm); Pain 8/10; 17:31 BP 152 / 87; Pulse 76; Resp 20; Pulse Ox 100% on 2 lpm NC; ph 18:22 BP 146 / 86; Pulse 87; Resp 19; Pulse Ox 98% on R/A; hb 15:40 Body Mass Index 21.46 (56.70 kg, 162.56 cm) zb MDM: 18:11 Patient medically screened. kdr 03/02 06:46 Data reviewed: vital signs, nurses notes, lab test result(s), EKG, radiologic studies. kdr Counseling: I had a detailed discussion with the patient and/or guardian regarding: the historical points, exam findings, and any diagnostic results supporting the discharge/admit diagnosis, lab results, radiology results, the need for further work-up and treatment in the hospital. 03/01 15:50 Order name: Basic Metabolic Panel; Complete Time: 17:42 kdr 03/01 15:50 Order name: CBC with Diff; Complete Time: 17:42 kdr 03/01 15:50 Order name: LFT's; Complete Time: 17:42 kdr 03/01 15:50 Order name: Magnesium; Complete Time: 17:42 kdr 03/01 15:50 Order name: NT PRO-BNP; Complete Time: 17:42 kdr 03/01 15:50 Order name: PT-INR; Complete Time: 17:42 kdr 03/01 15:50 Order name: Troponin (emerg Dept Use Only); Complete Time: 17:42 kdr 03/01 15:50 Order name: XRAY Chest (1 view); Complete Time: 17:42 kdr 03/01 16:11 Order name: CT Stone Protocol; Complete Time: 17:42 kdr 03/01 16:18 Order name: Urine Dipstick--Ancillary (enter results); Complete Time: 17:42 bd 03/01 18:01 Order name: COVID-19 kdr 03/01 20:48 Order name: SARS-COV-2 RT PCR EDMS 03/01 15:50 Order name: EKG; Complete Time: 15:51 kdr 03/01 15:50 Order name: Cardiac monitoring; Complete Time: 16:12 kdr 03/01 15:50 Order name: EKG - Nurse/Tech; Complete Time: 16:08 kdr 03/01 15:50 Order name: IV Saline Lock; Complete Time: 16:57 kdr 03/01 15:50 Order name: Labs collected and sent; Complete Time: 16:58 kdr 03/01 15:50 Order name: O2 Per Protocol; Complete Time: 16:24 kdr 03/01 15:50 Order name: O2 Sat Monitoring; Complete Time: 16:24 kdr EC/17 17:05 Rate is 73 beats/min. Rhythm is regular, Normal Sinus Rhythm with No ectopy. QRS Pearce kdr is Normal. GA interval is normal. QRS interval is normal. QT interval is normal. Clinical impression: NSR w/ Non-specific ST/T Changes. Administered Medications: 16:57 Drug: Demerol - Meperidine 12.5 mg Route: IVP; Site: Other; ph 17:30 Follow up: Response: No adverse reaction; Pain is decreased ph 16:57 Drug: Zofran (Ondansetron) 4 mg Route: IVP; Site: Other; ph 19:27 Follow up: Response: No adverse reaction ph 18:50 Drug: Xopenex (3) 1.25 mg Route: Inhalation; zb 19:27 Follow up: Response: No adverse reaction ph 18:50 Drug: SOLU-Medrol 2 mg/kg {Note: left leg .} Route: IVP; Site: Other; zb 19:28 Follow up: Response: No adverse reaction ph 18:51 Drug: Lasix 20 mg {Note: left leg .} Route: IVP; Site: Other; zb 19:28 Follow up: Response: No adverse reaction ph 20:48 Drug: Zofran (Ondansetron) 4 mg Route: IVP; Site: Other; rv 21: Follow up: Response: No adverse reaction rv 21: Drug: Luebbering (7.5 mg-325 mg) 1 tabs Route: PO; rv 21: Follow up: Response: Medication administered at discharge. rv Disposition: 03/01/20 18:11 Hospitalization ordered by Juan Jose Jones for Observation. Preliminary diagnosis is COPD Exacerbation, CHF, Low back pain. - Bed requested for Telemetry/MedSurg (observation). - Status is Observation. rv - Condition is Fair. - Problem is an acute exacerbation. - Symptoms have improved. Signatures: Dispatcher [employer] EDMS Puneet Barboza MD MD kdr Regan Chou, DISPATCHER SERVICE CHIEF-C DISPATCHER SERVICE CHIEF-Cla1 Goldie Alvarez, RN RN tl1 Ellen Ramsey, RN RN Jay Joe RN RN rv Sanam Stanton RN RN zb Corrections: (The following items were deleted from the chart) 21:00 18:11 Hospitalization Ordered by Juan Jose Jones for Observation. Preliminary diagnosis tl1 is COPD Exacerbation, CHF, Low back pain. Bed requested for Telemetry/MedSurg (observation). Status is Observation. Condition is Fair. Problem is an acute exacerbation. Symptoms have improved. kdr 21:27 21:00 03/01/2020 18:11 Hospitalization Ordered by Juan Jose Jones for Observation. rv Preliminary diagnosis is COPD Exacerbation, CHF, Low back pain. Bed requested for Telemetry/MedSurg (observation). Status is Observation. Condition is Fair. Problem is an acute exacerbation. Symptoms have improved. tl1
--- NOTE | 2020-03-01 18:12 | ER ---
Nurse's Notes [facility] Name: Gayle Wallace Age: 69 yrs Sex: Female : 1950 Arrival Date: 03/01/2020 Time: 15:27 Bed 3 Private MD: Diagnosis: COPD Exacerbation, CHF, Low back pain Presentation: 03/01 15:40 Chief complaint: Patient states: Bilateral low back pain, N/V x approx 1 week, reports zb hx of kidney stones, also reports some SOB, hx of COPD, denies cough, fever, sore throat or diarrhea. Coronavirus screen: Client denies travel out of the [place] in the last 14 days. shortness of breath, Client presents with at least one sign or symptom that may indicate coronavirus-19. Standard/surgical mask placed on the client. Ebola Screen: No symptoms or risks identified at this time. Initial Sepsis Screen: Does the patient meet any 2 criteria? No. Patient's initial sepsis screen is negative. Does the patient have a suspected source of infection? No. Patient's initial sepsis screen is negative. Risk Assessment: Do you want to hurt yourself or someone else? Patient reports no desire to harm self or others. Onset of symptoms was March 01, 2020. 15:40 Method Of Arrival: Ambulatory zb 15:40 Acuity: LIANNA 3 zb Historical: - Allergies: 15:45 Iodine; zb 15:45 Morphine; zb - PMHx: 15:45 Anxiety; Arthritis; COPD; Hypertension; Kidney stones; Myocardial infarction; zb - PSHx: 15:45 Hysterectomy; Tonsillectomy; Appendectomy; 2 left shoulder replacements; RIGHT knee zb replacement; Lithotripsy; - Immunization history:: Adult Immunizations unknown. - Social history:: Smoking status: Patient reports the use of cigarette tobacco products, denies chronic smoking, but will smoke occasionally. Screenin:30 Abuse screen: Denies threats or abuse. Denies injuries from another. Nutritional ph screening: No deficits noted. Tuberculosis screening: No symptoms or risk factors identified. Fall Risk None identified. Assessment: 16:45 General: Appears in no apparent distress. uncomfortable, Behavior is calm, cooperative, ph appropriate for age, Denies fever. Pain: Complains of pain in left low back and right low back Pain radiates to posterior aspect of right lateral abdomen, anterior aspect of right lateral abdomen, posterior aspect of left lateral abdomen, anterior aspect of left lateral abdomen, right lower quadrant and left lower quadrant Pain currently is 8 out of 10 on a pain scale. Neuro: Level of Consciousness is awake, alert, obeys commands, Oriented to person, place, time, situation. Cardiovascular: Capillary refill < 3 seconds in bilateral fingers Patient's skin is warm and dry. 16:45 Cardiovascular: Reports nausea, shortness of breath, Denies chest pain, fatigue, ph lightheadedness. Respiratory: Reports shortness of breath at rest Airway is patent Respiratory effort is even, unlabored, Respiratory pattern is regular, symmetrical, Denies cough. GI: Reports lower abdominal pain, nausea, vomiting. : Reports pain in bilateral flank(s), lower quadrant(s) in lower back. Derm: Skin is intact, Skin is pink, warm \T\ dry. Musculoskeletal: Circulation, motion, and sensation intact. Range of motion: intact in all extremities. 17:45 Reassessment: Patient appears in no apparent distress at this time. No changes from hb previously documented assessment. Patient and/or family updated on plan of care and expected duration. Pain level reassessed. 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 hb 18:56 Reassessment: Patient appears in no apparent distress at this time. Patient and/or hb family updated on plan of care and expected duration. Pain level reassessed. Patient is alert, oriented x 3, equal unlabored respirations, skin warm/dry/pink. 19:00 Reassessment: pt complained of bilateral knee pain. noted ECP. norco prescripted pt zb states she has taken it before with no reaction. Vital Signs: 15:40 BP 163 / 95; Pulse 80; Resp 18; Temp 97.0; Pulse Ox 95% ; Weight 56.7 kg; Height 5 ft. zb 4 in. (162.56 cm); Pain 8/10; 17:31 BP 152 / 87; Pulse 76; Resp 20; Pulse Ox 100% on 2 lpm NC; ph 18:22 BP 146 / 86; Pulse 87; Resp 19; Pulse Ox 98% on R/A; hb 15:40 Body Mass Index 21.46 (56.70 kg, 162.56 cm) zb ED Course: 15:27 Patient arrived in ED. as 15:33 Sanam Stanton, RN is Primary Nurse. zb 15:42 Triage completed. zb 15:46 Arm band placed on Patient placed in an exam room, on a stretcher. zb 15:49 Puneet Barboza MD is Attending Physician. kdr 16:12 Patient has correct armband on for positive identification. Placed in gown. Bed in low mh5 position. Call light in reach. Side rails up X 1. Warm blanket given. library monitor on. Pulse ox on. NIBP on. 16:12 EKG done, by ED staff, reviewed by Puneet Barboza MD. mh5 16:29 XRAY Chest (1 view) In Process Unspecified. EDMS 16:45 Missed attempt(s): 22 gauge in left antecubital area. Bleeding controlled, band aid hb applied, catheter tip intact. 16:52 Inserted saline lock: 22 gauge in right ,using aseptic technique. lower leg Blood hb collected. 17:06 CT Stone Protocol In Process Unspecified. EDMS 18:10 Juan Jose Jones is Hospitalizing Provider. kdr 21:09 Inserted saline lock: 18 gauge in right forearm, using aseptic technique. rv 21:10 No provider procedures requiring assistance completed. IV is patent, with fluids rv infusing freely, Patient admitted, IV remains in place. Administered Medications: 16:57 Drug: Demerol - Meperidine 12.5 mg Route: IVP; Site: Other; ph 17:30 Follow up: Response: No adverse reaction; Pain is decreased ph 16:57 Drug: Zofran (Ondansetron) 4 mg Route: IVP; Site: Other; ph 19:27 Follow up: Response: No adverse reaction ph 18:50 Drug: Xopenex (3) 1.25 mg Route: Inhalation; zb 19:27 Follow up: Response: No adverse reaction ph 18:50 Drug: SOLU-Medrol 2 mg/kg {Note: left leg .} Route: IVP; Site: Other; zb 19:28 Follow up: Response: No adverse reaction ph 18:51 Drug: Lasix 20 mg {Note: left leg .} Route: IVP; Site: Other; zb 19:28 Follow up: Response: No adverse reaction ph 20:48 Drug: Zofran (Ondansetron) 4 mg Route: IVP; Site: Other; rv 21: Follow up: Response: No adverse reaction rv 21: Drug: Ransom (7.5 mg-325 mg) 1 tabs Route: PO; rv 21: Follow up: Response: Medication administered at discharge. rv Outcome: 18:11 Decision to Hospitalize by Provider. kdr 21:10 Admitted to Med/surg accompanied by tech, room sbar, ekg, with chart, Report called to rv stehpen peterson 21:10 Condition: good 21:10 Instructed on the need for admit. 21:27 Patient left the ED. rv Signatures: Dispatcher [employer] EDMS Puneet Barboza MD MD kdr Martinez, Amelia as Hall, Patricia, RN RN Mary Velasquez, RN LANEY Vanessa Dockery [facility] Jay Villatoro, RN RN Sanam Crespo RN RN zb
[2020-03-01] MEDS ORDERED: LEVALBUTEROL 1.25 MG/3 ML NEB ONE (18:32)
[2020-03-01] MEDS ORDERED: METHYLPREDNISOLONE 125 MG INJ ONE (18:33)
--- NOTE | 2020-03-01 18:39 | P.HP ---
Certification for Inpatient Patient admitted to: Observation With expected LOS: <2 Midnights Patient will require the following post-hospital care: None Practitioner: I am a practitioner with admitting privileges, knowledge of patient current condition, hospital course, and medical plan of care. Services: Services provided to patient in accordance with Admission requirements found in Title 42 Section 412.3 of the Code of Federal Regulations <Regan Chou - Last Filed: 03/01/20 18:36> Patient History Date of Service: 03/01/20 Primary Care Provider: Dr. Yarbrough Reason for admission: COPD exacerbatio History of Present Illness: 61-year-old female with history of COPD who presents emergency department for cough and shortness of breath. Patient reports that she has had this cough and shortness of breath increasing over the course of the last 1 week. Patient reports nonproductive cough, patient also reported pain to bilateral flanks with history of kidney stones. Patient's workup in the emergency department was relatively unremarkable aside from mildly elevated BNP 771. Patient was given Solu-Medrol and nebulizers in the ED, still feeling short of breath at rest and not able to walk more than 50 feet or so without becoming short of breath. ED provider wishes to admit patient under observation. When I saw the patient in the emergency department she is awake, alert, oriented x3. Patient with no respiratory distress but some mild expiratory wheezing and crackles in the lung base. Patient still smoking a pack a day. Will admit under observation. - Past Medical/Surgical History Diabetic: No -: Osteoporosis -: Osteoarthritis -: Nephrolithiasis -: COPD -: Diverticulosis with diverticulitis -: Tobacco abuse -: History of chronic UTIs -: Hypertension -: Degenerative disk and joint disease -: Anxiety -: Rheumatoid arthritis -: 2 prior bilateral shoulder surgeries -: Tonsillectomy with adenoidectomy -: Right knee replacement -: Hysterectomy -: Diverticular surgery Psychosocial/ Personal History: She is , has 2 children, she does not work. - Family History Father -: Heart disease, Lung disease, Cancer Notes: of lungs ca Mother -: Heart disease Notes: from heart ds Brother -: Heart disease - Social History Smoking Status: Current every day smoker Counseled patient to stop smoking for: less than 10 minutes Smoking therapy provided: Yes Alcohol use: No CD- Drugs: No Caffeine use: Yes Place of Residence: Home <GayathrialmaRegan - Last Filed: 03/01/20 18:36> Date of Service: 03/02/20 <alma rodriguez - Last Filed: 03/02/20 18:27> Allergies morphine Allergy (Mild, Verified 03/01/20 22:52) Rash iodine Allergy (Unknown, Verified 03/01/20 22:52) Unknown Home Medications: Albuterol Sulfate [Proair Hfa] 8.5 gm IH DAILY PRN 03/01/20 Gabapentin 300 mg PO TID 03/01/20 Lisinopril [Zestril] 20 mg PO DAILY 03/01/20 Tiotropium Br/Olodaterol HCl [Stiolto Respimat Inhal [place]] 4 gm IH QID 03/01/20 Aspirin [Ecotrin 81 MG] 81 mg PO TID #30 03/02/20 Cyanocobalamin (Vitamin B-12) [Vitamin B12] 5,000 mcg PO DAILY #30 03/02/20 Famotidine [Pepcid] 20 mg PO BID #60 tab 03/02/20 LORazepam [Ativan] 0.5 mg PO TID PRN #12 tab 03/02/20 Review of Systems 10-point ROS is otherwise unremarkable Respiratory: Cough, Shortness of Breath, SOB with Excertion, Wheezing <Regan Chou - Last Filed: 03/01/20 18:36> Physical Examination - Physical Exam General: Alert, In no apparent distress HEENT: Atraumatic, PERRLA, Mucous membr. moist/pink Neck: Supple, 2+ carotid pulse no bruit, No LAD Respiratory: Normal air movement, Crackles/rales (Mild to the right lung base), Expiratory wheezes Cardiovascular: Regular rate/rhythm, Normal S1 S2 Gastrointestinal: Normal bowel sounds, No tenderness Musculoskeletal: No tenderness Integumentary: No rashes Neurological: Normal gait, Normal speech, Normal strength at 5/5 x4 extr, Normal tone, Normal affect - Studies Laboratory Data (last 24 hrs) 03/01/20 16:52: PT 11.3, INR 0.96 03/01/20 16:52: WBC 4.8, Hgb 12.6, Hct 38.1, Plt Count 207 03/01/20 16:52: Sodium 143, Potassium 3.7, BUN 20 H, Creatinine 0.97, Glucose 101, Magnesium 1.9, Total Bilirubin 0.2, AST 35, ALT 37, Alkaline Phosphatase 126 H <Regan Chou - Last Filed: 03/01/20 18:36> Assessment and Plan - Plan Assessment COPD exacerbation Hypertension Abdominal pain Anxiety Plan COPD exacerbation: Scheduled nebs and IV steroids. Daily labs, DVT prophylaxis Lovenox 40 mg subcutaneous once daily. Hypertension: Obtain and continue home medications. Abdominal pain: No acute findings on CT, tolerating p.o.. Continue with oral pain meds and p.r.n. nausea medications. Anxiety: Obtain and continue home meds, Restoril p.r.n. for sleep. Discharge Plan: Home Plan to discharge in: 24 Hours - Advance Directives Does patient have a Living Will: No Does patient have a Durable POA for Healthcare: No - Code Status/Comfort Care Code Status Assessed: Yes (Full code) Critical Care: No Time Spent Managing Pts Care (In Minutes): 55 <Regan Chou - Last Filed: 03/01/20 18:36> Physician Review: Patient Assessed, Agree with Above Assessment and Plan Physician Review Additional Text: COPD exacerbation. Plan: Scheduled nebulizers IV steroid. <alma rodriguez - Last Filed: 03/02/20 18:27>
[2020-03-01] MEDS ORDERED: FUROSEMIDE 20 MG/ 2ML VIAL ONE (18:56)
[2020-03-01] MEDS ORDERED: HYDROCODONE/APAP 7.5/325 MG TAB ONE ×2 (19:27→21:36)
[2020-03-01] MEDS ORDERED: TEMAZEPAM 15 MG CAP PO PRN (21:40)
[2020-03-01] MEDS ORDERED: ONDANSETRON 4 MG/2 ML VIAL IV PRN (21:40)
[2020-03-01] MEDS ORDERED: TRAMADOL HCL 50 MG TAB PO PRN (21:40)
[2020-03-01] MEDS ORDERED: BENZONATATE 100 MG CAP PO PRN (21:40)
[2020-03-01] MEDS ORDERED: ACETAMINOPHEN 500 MG TAB PO PRN (21:40)
[2020-03-01] MEDS: ALBUTEROL 2.5 MG/3 ML NEB SOL NEB SCH (22:00)
[2020-03-01] MEDS: IPRATROPIUM BROM 0.5MG/2.5ML NEB SCH (22:00)
[2020-03-01] MEDS ORDERED: POTASSIUM CL SA 10 MEQ TAB PO ONE (22:06)
[2020-03-01 22:58] VITALS: BMI 21.6
[2020-03-02] MEDS: METHYLPREDNISOLONE 40 MG INJ IV SCH ×3 (00:32→16:41)
[2020-03-02] MEDS ORDERED: FAMOTIDINE 20 MG/2 ML VIAL IV ONE (00:43)
[2020-03-02] MEDS: IPRATROPIUM BROM 0.5MG/2.5ML NEB SCH ×3 (01:20→13:27)
[2020-03-02] MEDS: ALBUTEROL 2.5 MG/3 ML NEB SOL NEB SCH ×3 (01:20→13:27)
[2020-03-02 04:08] LABS: Absolute Lymphocytes (CBC) 0.4 K/uL (0.7-4.9); Basophils % 0.4 % (0-1.3); Lymphocytes % 11.1 % (15.3-44.8); MPV 7.9 fL (7.6-11.3); RBC Red Blood Cell Count 4.75 M/uL (3.86-4.86)
[2020-03-02 04:18] LABS: Magnesium 1.9 mg/dL (1.8-2.4); Potassium 4.1 mmol/L (3.5-5.1)
[2020-03-02 05:23] LABS: Blood Morphology Comment NOT SEEN (NOT SEEN); Platelet Estimate ADEQ
[2020-03-02] MEDS: HYDROCODONE/APAP 7.5/325 MG TAB PO PRN ×2 (07:14→13:49)
[2020-03-02] MEDS ORDERED: MAGNES/ALUMIN/SIMET 30ML UCUP PO PRN (07:45)
[2020-03-02] MEDS ORDERED: ENOXAPARIN 40 MG/0.4 ML SQ SCH (09:00)
[2020-03-02] MEDS ORDERED: FAMOTIDINE 20 MG TAB PO SCH (09:00)
[2020-03-02 09:15] VITALS: O2SAT 95
--- NOTE | 2020-03-02 12:23 | P.DS ---
Admission Date: 03/01/20 Discharge Date: 03/02/20 Primary Care Provider: Dr. Yarbrough Disposition: ROUTINE DISCHARGE Reason for Admission: COPD exacerbatio Vital Signs/Physical Exam: Temp Pulse Resp BP Pulse Ox 97 F 100 H 20 152/87 H 94 03/02/20 08:00 03/02/20 08:00 03/02/20 08:14 03/02/20 08:00 03/02/20 08:14 Laboratory Data at Discharge: WBC 3.5 K/uL (4.3-10.9) L D 03/02/20 03:45 Hgb 13.0 g/dL (12.0-15.0) 03/02/20 03:45 Hct 40.0 % (36.0-45.0) 03/02/20 03:45 Plt Count 225 K/uL (152-406) 03/02/20 03:45 PT 11.3 SECONDS (9.5-12.5) 03/01/20 16:52 INR 0.96 03/01/20 16:52 Sodium 143 mmol/L (136-145) 03/02/20 03:45 Potassium 4.1 mmol/L (3.5-5.1) 03/02/20 03:45 BUN 28 mg/dL (7-18) H 03/02/20 03:45 Creatinine 1.31 mg/dL (0.55-1.3) H 03/02/20 03:45 Glucose 284 mg/dL (74-106) H 03/02/20 03:45 Magnesium 1.9 mg/dL (1.8-2.4) 03/02/20 03:45 Total Bilirubin 0.2 mg/dL (0.2-1.0) 03/01/20 16:52 AST 35 U/L (15-37) 03/01/20 16:52 ALT 37 U/L (12-78) 03/01/20 16:52 Alkaline Phosphatase 126 U/L (45-117) H 03/01/20 16:52 Home Medications: Albuterol Sulfate [Proair Hfa] 8.5 gm IH DAILY PRN 03/01/20 Gabapentin 300 mg PO TID 03/01/20 Lisinopril [Zestril] 20 mg PO DAILY 03/01/20 Tiotropium Br/Olodaterol HCl [Stiolto Respimat Inhal [place]] 4 gm IH QID 03/01/20 Aspirin [Ecotrin 81 MG] 81 mg PO TID #30 03/02/20 Cyanocobalamin (Vitamin B-12) [Vitamin B12] 5,000 mcg PO DAILY #30 03/02/20 Famotidine [Pepcid] 20 mg PO BID #60 tab 03/02/20 LORazepam [Ativan] 0.5 mg PO TID PRN #12 tab 03/02/20 New Medications: LORazepam [Ativan] 0.5 mg PO TID PRN #12 tab PRN Reason: Anxiety Aspirin [Ecotrin 81 MG] 81 mg PO TID #30 Famotidine [Pepcid] 20 mg PO BID #60 tab Cyanocobalamin (Vitamin B-12) [Vitamin B12] 5,000 mcg PO DAILY #30 Diet: AHA Activity: Ad sumanth Followup: TAMIA CANTRELL [Primary Care Provider] -
--- NOTE | 2020-03-02 15:31 | RAD REPORT ---
EXAM DESCRIPTION: RAD - Tib Fib Right - 03/02/2020 2:59 pm CLINICAL HISTORY: Right leg pain FINDINGS: No fracture is seen. No bony destructive lesion noted. Right knee arthroplasty
[2020-03-02 17:35] VITALS: BP 146/85; TEMP 97
--- NOTE | 2020-03-03 06:09 | EKG ---
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
== END 2020-03-02 18:19 | disposition home or self-care (01) ==
LOC: ER 15:24 → ERHOLD 18:31 → 2ND 21:22
PROVIDERS: ADMIT Internal Medicine; ATTEND Internal Medicine
DX: J44.1 Chronic obstructive pulmonary disease with (acute) exacerbation (principal); M81.0 Age-related osteoporosis without current pathological fracture; M19.90 Unspecified osteoarthritis, unspecified site; Z20.828 Contact with and (suspected) exposure to other viral communicable diseases; I10 Essential (primary) hypertension; F41.9 Anxiety disorder, unspecified; M06.9 Rheumatoid arthritis, unspecified; Z96.651 Presence of right artificial knee joint; R10.9 Unspecified abdominal pain; Z96.612 Presence of left artificial shoulder joint; F17.210 Nicotine dependence, cigarettes, uncomplicated; Z87.440 Personal history of urinary (tract) infections
CPT/HCPCS: 93005; 85025 ×2; 80048 ×2; 36415; 83735 ×2; 85610; 80076; 81003; 84484; 83880; 76377; 74176; 71045; 73590; 96375; 96374; 99285; U0003; J1940; J1650; J2175; J2930; J2405 ×3; J2920 ×3

== ENCOUNTER 2020-07-05 12:36 | Emergency (ER) | payer OTHER ==
--- OUTSIDE RECORDS SUMMARY | 2020-07-05 12:42 | XMS REPORT | Continuity of Care Document ---
:1950 Author Organization [facility] t Address [address] [place] [address] Care Team Providers Name Role Phone UNKNOWN Primary Care Physician Unavailable Ginny SANTILLAN Attending Clinician Abelardo PINK, S Attending Clinician KAROLINA Attending Clinician Unavailable Aiden DAVISON Attending Clinician KEYLA Attending Clinician Unavailable Roverto Cordova MD Attending Clinician Doctor Unassigned, Name Attending Clinician Unavailable Selma Victor Attending Clinician KRISTEN Attending Clinician Unavailable Richard Hickey Attending Clinician Angela Ruiz Attending Clinician Ghazal VERDUZCO Attending Clinician Unavailable Selma Victor Admitting Clinician KRISTEN Admitting Clinician Unavailable Problems Condition Condition Condition Status Onset Resolution Last Treating Co mments Source Name Details Category Date Date Treatment Clinician Date SOB Diagnosis Active 2017-042018-03-30 Mem oria 2- 17:52:00 l SOB 00:00: [place] 00 Active 03/30/2018 [facility] COPD Diagnosis Active 2017-042018-03-31 Mem oria 2 10:33:00 l COPD 00:00: [place] 00 Active 03/30/2018 [facility] COPD; UTI Diagnosis Active 2017-042018-04-28 Memoria 2 09:50:00 l COPD; 00:00: [place] UTI 00 Active 03/30/2018 [facility] PAIN Diagnosis Active 2016-08-31 Mem oria 08-31 10:21:00 l PAIN 00:00: [place] 00 Active 08/31/2016 [facility] SHOULDER Diagnosis Active 2016-08-30 M emoria AND BACK 08-29 15:42:00 l PAIN SHOULDER 00:00: Emil n AND BACK 00 PAIN Active 08/29/2016 [facility] BACK PAIN Diagnosis Active 2010-042011-03-09 Memoria 05-09 17:28:00 l BACK 08:00: [place] PAIN 00 Active 03/09/2011 [facility] Chronic Problem 2018-10-21 Sregio jovany obstructiv 14:47:04 l e Chronic [place] pulmonary obstructiv disease e with pulmonary (acute) disease exacerbati with on (acute) exacerbati on 10/21/2018 [facility] Chronic Problem 2018-10-21 Sergio jovany respirator 14:47:04 l y 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 hypoxia 10/21/2018 [facility] Urinary Problem 2018-10-21 Sergio jovany tract 14:47:04 l infection, Urinary Her hirsch site not tract specified infection, site not specified 10/21/2018 [facility] Essential Problem 2018-10-21 Me moria (primary) 14:47:04 l hypertensi Emil n on Essential (primary) hypertensi on 10/21/2018 [facility] Hyperlipid Problem 2018-10-21 M emoria emia, 14:47:04 l unspecifie Emil n d Hyperlipid emia, unspecifie d 10/21/2018 [facility] Dependence Problem 2018-10-21 M emoria on 14:47:04 l supplement Emil n al oxygen Dependence on supplement al oxygen 10/21/2018 [facility] Unspecifie Problem 2018-10-21 M emoria d 14:47:04 l osteoarthr Emil n itis, Unspecifie unspecifie d d site osteoarthr itis, unspecifie d site 10/21/2018 [facility] Nicotine Problem 2018-10-21 Mem oria dependence 14:47:04 l , Nicotine Emil n cigarettes dependence , , uncomplica cigarettes balbina , uncomplica balbina 10/21/2018 [facility] Atheroscle Problem 2018-10-21 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:04 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 10/21/2018 [facility] Repeated Problem 2018-10-21 Mem oria falls 14:47:04 l Repeated Emil n falls 10/21/2018 [facility] Other Problem 2018-10-21 Memor ia chest pain 14:47:04 l Other [place] chest pain 10/21/2018 [facility] Major Problem 2018-10-21 Memor ia depressive 14:47:04 l disorder, Major Emil n single depressive episode, disorder, unspecifie single d episode, unspecifie d 10/21/2018 [facility] Anxiety Problem 2018-10-21 Sergio jovany disorder, 14:47:04 l unspecifie Anxiety Her hirsch d disorder, unspecifie d 10/21/2018 [facility] Calculus Problem 2018-10-21 Mem oria of kidney 14:47:04 l Calculus Emil n of kidney 10/21/2018 [facility] Chronic Problem 2018-10-21 Sergio jovany pain 14:47:04 l syndrome Chronic Viviana nn pain syndrome 10/21/2018 [facility] Malingerer Problem 2018-10-21 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 14:47:04 l simulation Emil n ] Malingerer [conscious simulation ] 10/21/2018 [facility] Old Problem 2018-10-21 Memor ia myocardial 14:47:04 l infarction Old Emil n myocardial infarction 10/21/2018 [facility] Chronic Problem Resolve 2018-10-21 Mem oria obstructiv d 14:47:04 l e lung Chronic [place] disease obstructiv (disorder) e lung disease (disorder) Resolved Problem 10/21/2018 [facility] Hypertensi Problem Resolve 2018-10-21 Memoria ve d 14:47:04 l disorder, [place] systemic Hypertensi arterial ve (disorder) disorder, systemic arterial (disorder) Resolved Problem 10/21/2018 [facility] Abscess Problem Active 2018-10-21 Sergio jovany (disorder) 14:47:04 l Abscess [place] (disorder) Active Problem 10/21/2018 [facility] Depressive Problem Active 2018-10-21 M emoria disorder 14:47:04 l (disorder) Emil liao Depressive disorder (disorder) Active Problem 10/21/2018 [facility] Osteoarthr Problem Active 2018-10-21 emoria itis 14:47:04 l (disorder) Emil liao Osteoarthr itis (disorder) Active Problem 10/21/2018 [facility] Pain in Problem Active 2018-10-21 Sergio jovany right leg 14:47:04 l (finding) Pain in Herm sudhir right leg (finding) Active Problem 10/21/2018 [facility] CHRONIC Diagnosis Active 2018-04-28 Me moria OBSTRUCTIV 09:50:00 l E CHRONIC [place] PULMONARY OBSTRUCTIV DISEASE W E PULMONARY DISEASE W Active [facility] URINARY Diagnosis Active 2018-04-28 Me moria TRACT 09:50:00 l INFECTION, URINARY Her hirsch SITE NOT TRACT SPECIF INFECTION, SITE NOT SPECIF Active [facility] Diarrhea Problem Resolve 2018-10-21 2018-10-21 Memoria (finding) d 12-14 14:47:04 14:47:04 l Diarrhea 00:00: Emil liao (finding) 00 Resolved 12/14/2010 Problem 10/21/2018 [facility] History of Past Illness Condition Condition Condition Status Onset Resolution Last Treating Co mments Source Name Details Category Date Date Treatment Clinician Date Pain, Problem 2016-09-03 2016-09-03 M emoria unspecifie 08-31 03:37:07 03:37:07 l d Pain, 05:00: [place] unspecifie 00 d 08/31/2016 09/03/2016 [facility] Allergies, Adverse Reactions, Alerts Allergy Allergy Status Severity Reaction(s) Onset Inactive Treating Comm ents Source Name Type Date Date Clinician Iodinate Propensi Active Swelling [facility] St d [facility] - Contrast adverse 00:00: Medical Media reaction 00 Center s Morpholi Propensi Active Swelling [facility] St ne ty to 5-15 [facility] - Analogue adverse 00:00: Medical s reaction 00 Center s iodine iodine Active Love Montanez Social History Social Habit Start Date Stop Date Quantity Comments Source Sex Assigned At [facility] Social History 2018-03-31 2018-03-31 [facility] ermann 01:46:49 01:46:49 Alcohol intake 2016-08-27 2016-08-[address] [facility] es - 00:00:00 00:00:00 non-drinker of Medical Ce nter alcohol (finding) Smoking Status Start Date Stop Date Source Social History 2016-08-31 12:49:55 [facility] Her hirsch Medications Ordered Filled Start Stop Current Ordering Indication Dosage Frequency Signature Comments Components Source Medication Medication Date Date Medication? Clinician (SIG) Name Name Albuterol 2017-04 Yes 2.49 mg = Mem [...] Memoria 2-20 MISC, l 14:57: ONCALL, # [place] 00 1 ea, 0 Refill(s) Alprazolam 2017-04 [...] tab, PO, l Coated 14:54: Daily, # [place] Tablet 00 30 tab, 0 Refill(s) Levofloxaci [...] 2-20 tab, PO, l tablet 14:54: Daily, [place] 00 Take 3 tablets for 60 mg dose, X 5 day, # 15 tab, 0 Refill(s) amLODIPine 2017-04 Yes 5 mg = 1 Mem oria 5 mg oral 2-20 tab, PO, l tablet 14:54: Daily, # [place] 00 30 tab, 0 Refill(s) Mucinex 2017-04 No Notes: Memoria 2-19 (Same as: l 17:30: Guaifenesi [place] 00 n LA, Humibid LA, Mucinex) "Do Not Crush" Take medication with plenty of water. Omeprazole 2017-04 No 40 mg, Memor ia 2-19 Route: PO, l 15:00: Daily, [place] 00 Dosing Weight 58.892, kg, Start date: 04/02/18 9:00:00 TEARER PRESS CLIPPING, Duration: 30 day, Stop date: 05/01/18 9:00:00 TEARER PRESS CLIPPING Spiriva 2017-04 No 18 Memoria 2-19 microgram, l 15:00: Route: [place] 00 INHALATION , Daily, Dosing Weight 58.892, kg, Start date: 04/02/18 9:00:00 TEARER PRESS CLIPPING, Duration: 30 day, Stop date: 05/01/18 9:00:00 TEARER PRESS CLIPPING methylPREDN 2017-04 No Notes: Sergio jovany ISolone 2-18 (Same l SODium 22:00: as:Solu-ME Viviana nn SUCCinate 00 DROL, A-Methapre d) Protonix 2017-04 No Notes: Memoria 2-18 Tablet l 17:30: should not [place] 00 be chewed or crushed. (Same as: Protonix) Alprazolam 2017-04 No Notes: Memor ia 0.5 MG Oral 2-18 With food l Tablet 15:38: or milk Tarik [Xanax] 00 (Same as: Xanax) Acetaminoph 2017-04 No Notes: Do M emoria en 325 MG / 2-18 not exceed l Hydrocodone 15:29: 4gm/day of [place] Bitartrate 00 acetaminop 10 MG Oral hen. Tablet (Same as: [[place] 10/325] 325/10) Ketorolac 2017-04 No 4 days [...] as: l / 06:00: Duoneb) Ipratropium 00 [place] 0.167 MG/ML Inhalant Solution metoprolol 2017-04 No [...] jovany 2-17 (Same As: l 01:00: Rocephin). Use with 100 mL NS and infuse over 30 min MEDICATION WASTE Product Size: 1000 mg Product Wasted: ___ mg Acetaminoph 2017-04 No Notes: Max Memoria en -17 acetaminop l 00:09: hen 4000 [place] 00 mg/day (4 gm/day). (Same as: Tylenol Extra Strength) Hydralazine 2017-04 No Notes: Sergio jovany 2-17 (Same as: l 00:08: Apresoline ) Push over 5 minutes Morphine 2017-04 No Notes: Memoria 2-17 (Same l 00:06: as:MORPhin e Sulfate) Acetaminoph 2017-04 No Notes: Sergio jovany en 325 MG / -17 Same as l Hydrocodone 00:06: [place] Viviana nn Bitartrate 00 325-7.5mg 7.5 MG Oral Do not Tablet exceed [[place] 4gm/day of 7.5/325] acetaminop hen. Saline 2017-04 No Notes: Memoria Flush 0.9% -17 Same as: l 00:05: BD Posiflush Sterile Nitroglycer 2017-04 No Notes: Sergio jovany in -17 (Same l 00:05: as:Nitroqu ick, Nitrostat) "Do Not Crush" Sublingual tablet Dextrose 2017-04 No 25 gm, 50 Sergio jovany 50% Syringe 2-17 mL, Route: l 00:03: IVP, Drug Form: INJ, Dosing Weight 54.545, kg, PRN, PRN Blood Glucose Results, Start date: 03/30/18 18:03:00 TEARER PRESS CLIPPING, Duration: 30 day, Stop date: 04/29/18 18:02:00 TEARER PRESS CLIPPING Glucagon 2017-04 No 1 mg, Memoria 2-17 Route: IM, l 00:03: Drug form: [place] PDR/INJ, PRN, Dosing Weight 54.545, kg, PRN Blood Glucose Results, Start date: 03/30/18 18:03:00 TEARER PRESS CLIPPING, Duration: 30 day, Stop date: 04/29/18 18:02:00 TEARER PRESS CLIPPING Docusate 2017-04 No Notes: Memoria 2-17 (Same as: l 00:03: Colace) [place] (Do Not Crush) Nitroglycer 2017-04 No 0.4 mg, Mem oria in 2-16 Route: SL, l 20:25: ONCE, [place] 00 Dosing Weight 54.545, kg, Priority: STAT, Start date: 03/30/18 14:25:00 TEARER PRESS CLIPPING, Stop date: 03/30/18 14:25:00 TEARER PRESS CLIPPING Magnesium 2017-04 No 2 gm, Memoria Sulfate -16 Route: l 20:19: IVPB, Drug form: INJ, ONCE, Dosing Weight 54.545, kg, Start date: 03/30/18 14:19:00 TEARER PRESS CLIPPING, Stop date: 03/30/18 14:19:00 TEARER PRESS CLIPPING Ondansetron 2017-04 No Notes: Sergio jovany 2-16 (Same as: l 18:47: Zofran) MEDICATION WASTE Product Size: 4 mg Product Wasted: ___ mg Morphine 2017-04 No Notes: Memoria 2-16 (Same l 18:47: as:MORPhin [place] 00 e Sulfate) methylPREDN 2017-04 No Notes: Sergio jovany ISolone 2-16 (Same l SODium 18:47: as:Solu-ME Viviana nn SUCCinate 00 DROL, A-Methapre d) Albuterol 2017-04 No Notes: Memori a 0.833 MG/ML -16 (Same as: l / 18:47: Duoneb) [place] Ipratropium 00 [place] 0.167 MG/ML Inhalant Solution [DuoNeb] Saline 2017-04 No Notes: Memoria Flush 0.9% 2-16 Same as: l 18:27: BD [place] Posiflush Sterile ciprofloxac 2017- Yes 500 mg = 1 Memoria in 500 mg 5-19 tab, PO, l oral tablet 16:12: Q12H, X 10 [place] 00 day, # 20 tab, 0 Refill(s) naproxen 2017- Yes 275 mg = 1 Mem oria sodium 275 -19 tab, PO, l mg oral 16:12: Q8H, PRN Emil n tablet 00 for pain, X 10 day, # 30 tab, 0 Refill(s) ketOROLAC 2017-0 No 4 days. Sergio jovany 15 mg/mL 08-31 l injectable 15:07: [place] solution 00 Sodium 0 No 1,000 mL, Memori a Chloride 19 1000 l 0.154 12:59: ml/hr, [place] MEQ/ML 00 Infuse Injectable Over: 1 Solution hr, Route: IV, 1,000, Drug form: INJ, ONCE, Priority: STAT, Dosing Weight 56.818 kg, Start date: 08/31/16 7:59:00 CDT, Duration: 1 doses or times, Stop date: 08/31/16 7:59:00 CDT Acetaminoph No Notes: Do M emoria en 08-31 not exceed l 12:56: 4 gm/day. [place] 00 (Same as: Tylenol) lisinopril Yes 10mg [...] CAUSES SEDATION) for up to 10 doses. Vital Signs Vital Name Observation Time Observation Value Comments Source Systolic (mm Hg) 2018-04-03 12:56:00 Sergio rial [place] Diastolic (mm Hg) 2018-04-03 12:56:00 Mem orial [place] Respitory Rate 2018-04-03 12:56:00 Memori al [place] Heart Rate 2018-04-03 12:56:00 [facility] [place] Temperature Oral (F) 2018-04-03 12:56:00 98.2 F [facility] [place] Heart Rate 2018-04-03 09:54:00 [facility] [place] Respitory Rate 2018-04-03 09:54:00 Memori al [place] Temperature Oral (F) 2018-04-03 09:54:00 98.1 F [facility] [place] Systolic (mm Hg) 2018-04-03 09:54:00 Sergio rial [place] Diastolic (mm Hg) 2018-04-03 09:54:00 Mem orial [place] Respitory Rate 2018-04-03 06:05:00 Memori al [place] Heart Rate 2018-04-03 06:05:00 [facility] [place] Systolic (mm Hg) 2018-04-03 06:05:00 Sergio rial [place] Diastolic (mm Hg) 2018-04-03 06:05:00 Mem orial [place] Temperature Oral (F) 2018-04-03 06:05:00 98.3 F [facility] [place] Height 2018-03-31 01:27:00 162.56 cm [facility] [place] BMI Calculated 2018-03-31 01:27:00 Memori al [place] Weight 2018-03-31 01:27:00 [facility] [place] Height 2018-03-31 00:36:00 157.48 cm [facility] [place] BMI Calculated 2018-03-30 18:27:00 Memori al [place] Weight 2018-03-30 18:27:00 [facility] [place] Height 2018-03-30 18:27:00 165.1 cm [facility] [place] Respitory Rate 2016-08-31 16:07:00 Memori al [place] Systolic (mm Hg) 2016-08-31 16:07:00 Sergio rial [place] Diastolic (mm Hg) 2016-08-31 16:07:00 Mem orial [place] Weight 2016-08-31 12:21:00 [facility] [place] Height 2016-08-31 12:21:00 160.02 cm [facility] [place] BMI Calculated 2016-08-31 12:21:00 Memori al [place] Respitory Rate 2016-08-31 12:21:00 Memori al [place] Temperature Oral (F) 2016-08-31 12:21:00 98.3 F [facility] [place] Systolic (mm Hg) 2016-08-31 12:21:00 Sergio rial [place] Diastolic (mm Hg) 2016-08-31 12:21:00 Mem orial [place] Heart Rate 2016-08-31 12:21:00 [facility] [place] Temperature Oral (F) 2016-08-30 00:30:00 97.5 F [facility] [place] Respitory Rate 2016-08-30 00:30:00 Memori al [place] Systolic (mm Hg) 2016-08-30 00:30:00 Sergio rial [place] Diastolic (mm Hg) 2016-08-30 00:30:00 Mem orial [place] Heart Rate 2016-08-30 00:30:00 [facility] [place] Weight 2016-08-30 00:30:00 [facility] [place] BMI Calculated 2016-08-30 00:30:00 Memori al [place] Height 2016-08-30 00:30:00 160.02 cm [facility] [place] Procedures Procedure Date / Time Performed Performing Clinician [facility] [place] Encounters Start End Encounter Admission Attending Care Care Encounter Source Date/Time Date/Time Type Type Clinicians Facility Department ID 2020-05-12 2020-05-12 Outpatient [facility] [id number] [place] 00:00:00 00:00:[address] 2020-03-24 2020-03-24 Outpatient [facility] [id number] [place] 00:00:00 00:00:[address] 2019-12-11 2019-12-[address] [facility] [id number] 17:51:00 22:04:00 Puneet Carlson [id number] [place] [id number] [place] [id number] 2019-10-26 2019-10-26 Outpatient [facility] [id number] [place] 00:00:00 00:00:[address] 2019-10-05 2019-10-05 Outpatient [facility] [id number] [place] 00:00:00 00:00:[address] 2019-09-14 2019-09-14 Outpatient [facility] [id number] [place] 00:00:00 00:00:[address] 2019-08-24 2019-08-24 Outpatient [facility] [id number] [place] 00:00:00 00:00:[address] 2019-06-30 2019-06-30 [facility] [id number] 17:09:10 18:21:00 Anne Marie Champagne [place] [id number] [place] [id number] [place] [id number] 2019-06-17 2019-06-17 Outpatient [facility] [id number] [place] 00:00:00 00:00:[address] 2019-05-06 2019-05-06 Outpatient KAROLINA VIDYA [facility] [id number] [place] 00:00:00 00:00:[address] 2019-05-01 2019-05-01 Transition Mirian Wolfe [id number] 00:00:00 00:00:00 of Care Opal Ruiz [id number] [place] [id number] [id number] 2019-03-20 2019-03-20 Emergency KEYLA, [facility] 064 [id number] [place] 00:00:00 00:00:00 [place] [address] 2018-11-19 2018-11-19 Office [facility] [id number] 14:19:18 15:21:36 Visit Hayden LEES [id number] [place] 4.2.7.2.686 [place] [id number] AND [facility] 2018-11-19 2018-11-19 Orders Doctor JAVIER [id number] 00:00:00 00:00:00 Only Unassigned, MARIANELA [id number] [place] [facility] [id number] [id number] 2018-03-30 2018-04-03 Out[facility] [id number] 12:16:00 15:06:00 Cheryl Hahn 2017-05-23 2017-05-23 Emergency E NICOLE PETERSON [facility] MED [id number] [facility] 11:48:00 11:48:00 2016-08-31 2016-08-31 Deja Hickey [facility] [id number] 07:15:00 11:53:00 Daniel Ramos 2016-08-29 2016-08-29 Deja Ruiz [facility] [id number] 18:44:00 21:16:00 Puneet Miller 00 Results Test Description Test Time Test Comments Results Result Comments Source CHEM PANEL 2018-04-02 139 [facility] [place] nn 10:21:00 CHEM PANEL 2018-04-02 29 [facility] [place] nn 10:21:00 CHEM PANEL 2018-04-02 4.4 [facility] [place] nn 10:21:00 CHEM PANEL 2018-04-02 1.06 [facility] [place] nn 10:21:00 CHEM PANEL 2018-04-02 144 [facility] [place] nn 10:21:00 CHEM PANEL 2018-04-02 11.4 [facility] [place] nn 10:21:00 HEMATOLOGY 2018-04-02 10:21:00 Test Item Value Reference Range Interpretation Comme nts MCH (test code = MCH) 26.6 pg 27.0-31.0 Memorial ThryaaeBFJQFXSZRY8038-72-09 10:21:007.5[facility] HermannHEMATOLOGY 2018-04-02 10:21:59997Mxbuosoi CjkommaGVIAULFTGC4896-18-42 10:21:0017.2[facility] QkdclpgXGATEHJTHA5457-60-31 10:21:0032.1[facility] TbforonIUAWMZFSTK5465-59-47 10:21:005.5[facility] NvepbajFZVOMFQCKB7430-01-40 10:21:004.13[facility] [place] NRJFQSJVSP6305-83-99 10:21:0034.2[facility] PhgqxqvXFAOSQJCGH9773-60-83 10:21:00 82.8[facility] YezrgsiQDMSZNOLZT8212-04-35 10:21:0011.0[facility] HermannCHEM PANEL 2018-04-02 10:21:0039[facility] HermannCHEM SACSC5780-01-46 10:21:0055[facility] HermannCHEM ESNGW3059-96-20 10:21:008.9[facility] HermannCHEM NKSDZ3306-82-99 10:21:44901Rzjwnyxo HermannCHEM TRNUY6956-62-31 09:01:002.0[facility] HermannCHEM WSGUZ0653-00-73 09:01:0051[facility] HermannCHEM CMPRT1776-32-87 09:01:008.8 [facility] HermannCHEM SYRSG4317-78-37 09:01:0013.7[facility] HermannCHEM PANEL 2018-04-01 09:01:004.7[facility] HermannCHEM CMFHA1131-66-51 09:01:0027[facility] HermannCHEM BPKZG8778-62-12 09:01:03112Zlimchxs HermannCHEM DVUIF1542-02-00 09:01:20469Dpswwdjq HermannCHEM PAAZH4791-62-36 09:01:001.12[facility] HermannCHEM AYGSZ8237-34-07 09:01:68779Bkhfdfcb HermannCHEM STXVD2299-44-05 09:01:0032 Memorial OuhnyuqXWPESSOTZY7792-17-79 09:01:000.4[facility] HermannHEMATOLOGY 2018-04-01 09:01:004.7[facility] NrktiwwEXCLTQEZME4106-69-55 09:01:000.1[facility] BrkghbhNFGTDGPMHM6467-64-77 09:01:006.9[facility] IfiwfznDNRMUBFCNM3821-31-10 09:01:000.9[facility] OuloupbODYUKEVCQT1097-69-89 09:01:0014.5[facility] [place] TKQEWQVQYU5204-80-86 09:01:0078.5[facility] DfijnomZSTWPIWGPT6930-82-05 09:01:00 11.4[facility] CafhiifDQNNLARJJL0774-33-12 09:01:005.9[facility] HermannHEMATOLOGY 2018-04-01 09:01:004.33[facility] GvqzdwaPQYKIGSRQN4827-71-61 09:01:0036.2[facility] LqshgubSMKUSIJUCK8749-69-86 09:01:09546Pbgujhaj VlzxoqiNZPTLFRNUS7773-04-62 09:01:0017.1[facility] DagvuwyVIOCSZJBIU9080-64-28 09:01:00 Test Item Value Reference Range Interpretation Comments MCH (test code = MCH) 26.2 pg 27.0-31.0 Memorial KtqhbxcNNLQBOXDFS8919-41-24 09:01:0031.4[facility] HermannHEMATOLOGY 2018-04-01 09:01:0083.5[facility] MtdmshkXZNXOXWYNX6002-16-10 09:01:007.8[facility] HermannCARDIAC EIKUDAP3223-93-16 11:06:00<0.02[facility] HermannCARDIAC ENZYMES 2018-03-31 11:06:00<0.02[facility] HermannCHEM FDBKX9338-79-91 11:06:0054 [facility] HermannCHEM VOKHW6588-37-17 11:06:0026[facility] HermannCHEM PANEL 2018-03-31 11:06:0012.6[facility] HermannCHEM HOCZU6121-13-97 11:06:34079Walzsllk HermannCHEM QPZJJ8059-90-05 11:06:008.9[facility] HermannCHEM KUUJW3856-30-01 11:06:004.6[facility] HermannCHEM ESXFS1839-32-02 11:06:07833Daqwrcoh HermannCHEM UKXCH9806-29-10 11:06:33315Ttzvbepw HermannCHEM ACVRF2986-49-43 11:06:0023 [facility] HermannCHEM HTQWH9640-16-64 11:06:001.07[facility] HermannCHEM PANEL 2018-03-31 11:06:002.1[facility] KpzcuulNDEYKNGWQS7690-87-88 11:06:0011.1[facility] LiybxmqBZHEUEJSPH0606-32-86 11:06:00 Test Item Value Reference Range Interpretation Comments MCH (test code = MCH) 26.0 pg 27.0-31.0 Memorial UhvgiytBZWSZRZPYC1551-58-75 11:06:004.27[facility] HermannHEMATOLOGY 2018-03-31 11:06:004.6[facility] SoabjunQNAGAOKVYC2012-06-59 11:06:0035.6[facility] FkcikbgPOPNZCSEOF5161-52-15 11:06:0083.3[facility] EwnkcfjYXONPXJSDU1366-26-58 11:06:0031.2[facility] VxmtcftMZWTNLLNXC6907-38-78 11:06:0017.4[facility] [place] VPDXDWMTFJ4645-16-14 11:06:89082Dvqodrau RftililYEGUQQXCQH9300-38-06 11:06:007.2 [facility] EynefpxNENNZKNIIW7554-45-76 11:06:003.2[facility] HermannHEMATOLOGY 2018-03-31 11:06:0020.2[facility] MmatiaxHAFKMSYZJK4094-17-83 11:06:000.1[facility] FkobealNKOZNYKGWW6008-13-48 11:06:0010.0[facility] NxitvvpFGYPDTZJVF7400-03-67 11:06:000.5[facility] FertqviGBDRKPELFS4599-69-21 11:06:000.9[facility] [place] MEXKOVGVEC1332-80-45 11:06:0069.7[facility] DraylxmERVZQV4916-95-47 11:06:00 Test Item Value Reference Range Interpretation Comments CHD Risk (test code = CHD Risk) 2.94 1 3.90-5.80 [facility] TopfgliPFLIQO2143-08-47 11:06:00 Test Item Value Reference Range Interpretation Comments VLDL (test code = VLDL) 11 1 [facility] TavpdxkKCGQEJ7988-69-39 11:06:0094[facility] NvknepyRGISNL7517-49-41 11:06:0054[facility] AyilgdyGUPTBF4341-15-88 11:06:0054[facility]annLIPIDS 2018-03-31 11:06:72205Edebbyuz HermannCARDIAC [id number] 05:43:00<0.02 [facility] YmbmiseQPXSQOVFCI8062-41-90 05:43:00 Test Item Value Reference Range Interpretation Comments PT (test code = PT) 12.5 s 12.0-14.7 [facility] DoiuljcFUMLRNEWHC1153-97-41 05:43:00 Test Item Value Reference Range Interpretation Comments INR (test code = INR) 0.95 1 0.85-1.17 [facility] [id number] 23:43:00Negative *NA*(03/30/18 5:43 PM) [facility] [id number] 23:43:00Negative *NA*(03/30/18 5:43 PM) [facility] [id number] 23:43:00Positive *ABN*(03/30/18 5:43 PM) [facility] [id number] 23:43:00Negative *NA*(03/30/18 5:43 PM) [facility] [id number] 23:43:00Positive *ABN*(03/30/18 5:43 PM) [facility] [id number] 23:43:00Negative *NA*(03/30/18 5:43 PM) [facility] [id number] 23:43:00See Note (03/30/18 5:43 PM) [facility] [id number] 23:43:00Negative *NA*(03/30/18 5:43 PM) [facility] [id number] 23:43:00Negative (03/30/18 5:43 PM) [facility] [id number] 23:43:00Small *ABN*(03/30/18 5:43 PM) [facility] FHEIT6400-18-26 23:43:00 Test Item Value Reference Range Interpretation Comments UA pH (test code = UA pH) 6.0 1 5.0-8.0 [facility] [id number] 23:43:00Large *ABN*(03/30/18 5:43 PM) [facility] ZANSF1903-13-90 23:43:00Negative *NA*(03/30/18 5:43 PM)[facility] [id number] 23:43:00Negative *NA*(03/30/18 5:43 PM)[facility] [id number] 23:43:00Negative (03/30/18 5:43 PM)[facility] BQVVD4842-68-09 23:43:00>182[facility] AND UYHSX4747-35-44 23:43:0018[facility] YSSYV9633-61-47 23:43:00Clear (03/30/18 5:43 PM)[facility] [id number] 23:43:00 Test Item Value Reference Range Interpretation Comments UA Spec Grav (test code = UA Spec 1.014 1 Grav) [facility] XVCQV4028-06-76 23:43:00Light Yellow *NA*(03/30/18 5:43 PM)[facility]ARD[facility]AC MEOFHPR4135-94-46 18:58:0029[facility]annCHEM HKLWA0331-03-05 18:58:003.4[facility]annCHEM FEAYB8953-19-07 18:58:0033 [facility]annCHE[facility] IHIAN5942-10-92 18:58:97288Azdjcrsj HermannCHEM PANEL 2018-03-30 18:58:0030[facility]annCHE[facility] ANNDE1503-57-78 18:58:008.0[facility] AVGYV4925-24-13 18:58:000.3[facility] YKUAF7588-91-32 18:58:00 Test Item Value Reference Range Interpretation Comments B/C Ratio (test code = B/C Ratio) 15 1 6-25 [facility] [id number] 18:58:00 Test Item Value Reference Range Interpretation Comments A/G Ratio (test code = A/G Ratio) 0.7 1 0.7-1.6 [facility] VFEMB1264-24-18 18:58:004.6[facility]annHEMATOLOGY 2018-03-30 18:58:004.1[facility] LznxulmVVTEBHHICP6653-04-87 18:58:0011.1[facility] WvlzbrtWNHCKFFHNC5307-81-92 18:58:000.2[facility] DiqayfxLDAQLVPLLH5347-67-41 18:58:0046.0[facility] PrrwmubNTLMWAREIN3098-02-63 18:58:0038.5[facility] SWZWBWDXRM6553-44-17 18:58:000.3[facility] HpfijbmEBDVEEQBBP8067-22-31 18:58:000.5 [facility] XhzxfsiZKSRZCFMJI2378-46-62 18:58:001.9[facility]annHEMATOLOGY 2018-03-30 18:58:001.6[facility]annUrinalysis Thsuchfq8758-38-97 15:08:00 Test Item Value Reference Range Interpretation Comments Color (test code = COLOR) Yellow Yellow,Straw,Pl N yellow Clarity (test code = Clear Clear N CLAR) Specific [place] (test 1.012 1.001-1.035 N code = SPGR) [...] code = Occ /HPF BACT) Comprehensive Metabolic [id number] 13:34:00 Test Item Value Reference Range Interpretation [...] ars ofage have not been validated by th e MDRD study and shoul d be interpretedwith caution.eGFR Re sult Interpretation: eGFR > or = 60 is in t he Normal RangeeGF R < 60 may mean kidney diseaseeGFR < 1 5 may mean kidney failureRange s recommended by the National Kidney Foundation,http ://nkd ep.nih.gov CK [id number] 13:34:00 Test Item Value Reference Range Interpretation Comments CK (test code = CK) 25 U/L 26-192 L Troponin [id number] 13:34:00 Test Item Value Reference Range Interpretation Comments Troponin T (test code = RAYMUNDO) <0.010 ng/mL 0.000-0.090 N CBC with Dupwvfdkqrze0731-04-07 13:14:00 Test Item Value Reference Range Interpretation [...] code = ALYMPH) 1.6 K/cumm 0.5-4.6 N [place] Abs (test code = AMONO) 0.5 K/cumm 0.0-1.2 N Eos Abs (test code = AEOS) 0.10 K/cumm 0.00-0.74 N Baso Abs (test code = ABASO) 0.1 K/cumm 0.00-0.21 N Hypochromic (test code = HYPO) Moderate 52302& PELVIS W/O BLAJFRSL2352-49-62 12:54:07EXAM: CT ABDOMEN AND PELVIS WITHOUT CONTRASTINDICATION: [...] evidence of acute diverticulitis.LOCATION: R16XR CHEST 1 [id number] 12:27:29EXAM: CHEST ONE VIEWINDICATION: Chest painCOMPARISON: June 21, 2009TECHNIQUE: AP view of the chest.FINDINGS: The cardiomediastinal silhouette is normal. There are diffuseemphysematous changes bilaterally. No pneumothorax or pleural effusionis identified. The osseous structures are unremarkable.IMPRESSION: Diffuse emphysematous changes throughout both lungs.LOCATION: J52MKZCK AND VWHBD9268-15-85 14:04:15Performed (08/31/16 9:04 AM) [facility] LBRHW5253-57-97 14:04:15Slight Cloudy (08/31/16 9:04 AM)[facility] ANFBY1780-33-34 14:04:15Yellow *NA*(08/31/16 9:04 AM)[facility] [id number] 14:04:15 Test Item Value Reference Range Interpretation Comments UA Spec Grav (test code = UA Spec 1.015 1 Grav) [facility] [id number] 14:04:15Negative (08/31/16 9:04 AM) [facility] ZFNYT6082-74-22 14:04:15 Test Item Value Reference Range Interpretation Comments UA pH (test code = UA pH) 6.0 1 5.0-8.0 [facility] RBWKT8656-07-69 14:04:15Negative *NA*(08/31/16 9:04 AM) [facility] DWGCT0717-50-43 14:04:15Negative (08/31/16 9:04 AM) [facility] OZRNB5358-67-71 14:04:15Negative *NA*(08/31/16 9:04 AM) [facility] YVPMC1834-71-97 14:04:15Moderate *ABN*(08/31/16 9:04 AM)[facility] BGOMF8156-86-55 14:04:15Negative (08/31/16 9:04 AM) [facility] QNDRF0175-67-32 14:04:150.2[facility] ZKJOX8224-41-77 14:04:15Negative (08/31/16 9:04 AM)[facility]ARDIAC NJYMBII2457-90-72 13:38:00<0.02[facility] NacesowPJPZSFFBHRUU4551-94-96 13:38:0014.8[facility] GquwmdwUDKJBPRWBCRZ2246-54-64 13:38:0065[facility] YARLXAJRATIV8496-17-14 13:38:009.7[facility] FhgjhzgTAZWYBIODYOQ7795-06-10 13:38:0026[facility] IlsnvzlDBZSOHPOZUGU0290-81-78 13:38:004.8[facility] XDFVAVWPWDOO1798-01-22 13:38:34774Nzojoeic YidirtkMQXMOLBKJYUF0598-51-32 13:38:27492Hpvsshao ZdivmvfOZYKRAFUCDPC3144-14-88 13:38:000.93[facility] QQOHXEHXIYGP3092-37-41 13:38:0027[facility] MnqpaodBQNUOTAVJDSO2133-10-41 13:38:00 90[facility] PiwttsdLGCAYJSOTP4935-90-64 13:38:00Normal (08/31/16 8:38 AM)[facility] MpnarfeRUVUAADJFX2219-59-91 13:38:00See Note 1(08/31/16 8:38 AM)[facility] FHVZBFVTNV3770-09-41 13:38:0035.0[facility] QvnghuwGVTUMOJRFA3396-97-08 13:38:00 41.6[facility] VlpnzmeVFEBYPPSRN7321-14-48 13:38:006.5[facility]annHEMATOLOGY 2016-08-31 13:38:000.7[facility] TdtrqgpAPDGVVBHDM1572-33-19 13:38:000.9[facility] WzezukeYRXVTPCABH2505-76-12 13:38:0016.2[facility] JnrddcyUIIWWOCIVD1080-51-72 13:38:000.2[facility] KfnrdiyGPMQBJYAVX9873-18-56 13:38:001.1[facility] QUJNUHMHOM6844-78-89 13:38:000.4[facility] JcajfybAUWBKDOVPI5435-85-37 13:38:00 32.3[facility] RtezmkdDIMYWTZDZQ1374-95-63 13:38:0019.6[facility]annHEMATOLOGY 2016-08-31 13:38:47144Ohrzbpnk EkoemfyRATPBPFMOW6592-31-94 13:38:007.5[facility] TfiahxbZUTGVJVXQT9674-03-16 13:38:004.29[facility] CvtwmfoADKHXGIRQO1621-12-53 13:38:0034.9[facility] IncrtcsASMFNRFDZQ5985-53-44 13:38:002.7[facility] ZBZKMNBEZJ3636-81-16 13:38:0011.3[facility] OenslwiBKRADRYMAN8068-95-56 13:38:00 81.5[facility] UevtoopMOIWPBGBNM1242-77-35 13:38:00 Test Item Value Reference Range Interpretation Comments MCH (test code = MCH) 26.4 pg 27.0-31.0 [facility] MAXUO8738-20-19 01:45:00Slight Cloudy (08/29/16 8:45 PM)[facility] YHYIQ2325-80-43 01:45:00 Test Item Value Reference Range Interpretation Comments UA Spec Grav (test code = UA Spec 1.015 1 Grav) [facility] [id number] 01:45:00Negative *NA*(08/29/16 8:45 PM) [facility] EGDNW4042-52-73 01:45:00Yellow *NA*(08/29/16 8:45 PM) [facility] CTUWB2024-83-75 01:45:00Small *ABN*(08/29/16 8:45 PM) [facility] YGGBZ5701-88-25 01:45:00Negative (08/29/16 8:45 PM) [facility] JSLTE6641-39-22 01:45:00 Test Item Value Reference Range Interpretation Comments UA pH (test code = UA pH) 6.0 1 5.0-8.0 [facility] VDJGM1351-68-45 01:45:00Negative (08/29/16 8:45 PM) [facility] ADGGX8991-00-19 01:45:00Negative *NA*(08/29/16 8:45 PM) [facility] AYXLX4027-78-76 01:45:00Large *ABN*(08/29/16 8:45 PM) [facility] JCBGQ4710-41-25 01:45:000.2[facility] QDFYZ9338-74-89 01:45:00Negative (08/29/16 8:45 PM)[facility] XISYB6206-72-48 01:45:000-2 (08/29/16 8:45 PM)[facility] STOOL 2016-08-30 01:45:00Performed (08/29/16 8:45 PM)[facility]annCBC W/PLT COUNT & AUTO YMBEOUGWCSLR3740-84-85 15:34:00 Test Item Value Reference Range Interpretation [...] K/ L 0.00-0.20 (test code = 417) 0.00BASIC METABOLIC [id number] 14:29:00 Test Item Value Reference Range Interpretation [...] ESTIMATED GFR. CREATINE KINASE (CK), TOTAL AND [id number] 14:25:00 Test Item Value Reference Range Interpretation Comments CREATINE KINASE TOTAL (BEAKER) 47 U/L 29-200 (test code = 380) CREATINE KINASE-MB (BEAKER) (test 2.8 ng/mL 0.0-6.6 code = 750) CREATINE KINASE-MB INDEX (BEAKER) 6.0 % (test code = 395) Effective 03/02/2014: CK-MB Reference Range ChangeNew: 0.0-6.6 Previous: 0.0-4.9CK-MB Reference Range:<6.7 Normal6.7-10.0 Borderline>10.0 AbnormalTROPONIN [id number] 14:25:00 Test Item Value Reference Range Interpretation [...] 26 pg/mL 0-100 (test code = 700) [id number] 14:17:00 Test Item Value Reference Range Interpretation Comments MAGNESIUM (BEAKER) (test code = 2.1 mg/dL 1.6-2.6 627) PT/[id number] 13:55:00 Test Item Value Reference Range Interpretation Comments PROTIME (BEAKER) (test code = 12.3 seconds 11.7-14.7 759) INR (BEAKER) (test code = 370) 0.9 <=5.9 PARTIAL THROMBOPLASTIN TIME 24.1 seconds 22.5-36.0 (BEAKER) (test code = 760) RECOMMENDED COUMADIN/WARFARIN INR THERAPY RANGESSTANDARD DOSE: 2.0 - 3.0 Includes: PROPHYLAXIS forvenous thrombosis, systemic embolization; TREATMENT for venous thrombosis and/or pulmonary embolus.HIGH RISK: Target INR is 2.5-3.5 for patients with mechanical heart valves.
--- NOTE | 2020-07-05 15:41 | ER ---
Nurse's Notes [facility] Name: Gayle Wallace Age: 69 yrs Sex: Female : 1950 Arrival Date: 07/05/2020 Time: 12:37 Bed Waiting Private MD: Diagnosis: Presentation: 07/05 12:51 Chief complaint: Patient states: CP, cough, body pain for 1 week. Abdominal with N/V ll1 for 1 week. No fever. Coronavirus screen: Client denies travel out of the [place] in the last 14 days. chills, congestion, cough unrelated to allergies, difficulty breathing, fatigue, headache, muscle pain, shortness of breath, vomiting. Client presents with at least one sign or symptom that may indicate coronavirus-19. Standard/surgical mask placed on the client. Ebola Screen: Patient denies travel to an Ebola-affected area in the 21 days before illness onset. Initial Sepsis Screen: Does the patient meet any 2 criteria? No. Patient's initial sepsis screen is negative. Does the patient have a suspected source of infection? Yes: Productive cough/pneumonia. Risk Assessment: Do you want to hurt yourself or someone else? Patient reports no desire to harm self or others. Onset of symptoms was June 28, 2020. 12:51 Method Of Arrival: Ambulatory 1 12:51 Acuity: LIANNA 3 ll1 Historical: - Allergies: 12:54 Iodine; ll1 12:54 Morphine; ll1 - PMHx: 12:54 Anxiety; Arthritis; COPD; Hypertension; Kidney stones; Myocardial infarction; ll1 Osteoporosis; - PSHx: 12:54 Appendectomy; 2 left shoulder replacements; RIGHT knee replacement; Hysterectomy; ll1 Tonsillectomy; Lithotripsy; - Immunization history:: Flu vaccine is up to date. - Social history:: Smoking status: Patient reports the use of cigarette tobacco products, smokes one-half pack cigarettes per day. Vital Signs: 12:51 BP 131 / 89; Pulse 89; Resp 20; Temp 97.7; Pulse Ox 100% on R/A; Weight 58.97 kg; ll1 Height 5 ft. 4 in. (162.56 cm); Pain 7/10; 12:51 Body Mass Index 22.31 (58.97 kg, 162.56 cm) ll1 ED Course: 12:37 Patient arrived in ED. ds1 12:48 Bsasam Avalos PA is PHCP. tania 12:48 Gerry Morton MD is Attending Physician. abi 12:53 Triage completed. ll1 12:53 Arm band placed on. ll1 Administered Medications: No medications were administered Outcome: 15:41 Patient left the ED. ll1 Signatures: Bassam Avalos PA PA Nita Price ds1 Nic Etienne RN RN ll1
[2020-07-05 15:50] VITALS: BP 131/89; TEMP 97.7; O2SAT 100
--- NOTE | 2020-07-06 15:52 | EDPHYS ---
Physician Documentation [facility] Name: Gayle Wallace Age: 69 yrs Sex: Female : 1950 Arrival Date: 07/05/2020 Time: 12:37 Bed Waiting Private MD: ED Physician Gerry Morton Historical: - Allergies: 07/05 12:54 Iodine; ll1 12:54 Morphine; ll1 - PMHx: 12:54 Anxiety; Arthritis; COPD; Hypertension; Kidney stones; Myocardial infarction; ll1 Osteoporosis; - PSHx: 12:54 Appendectomy; 2 left shoulder replacements; RIGHT knee replacement; Hysterectomy; ll1 Tonsillectomy; Lithotripsy; - Immunization history:: Flu vaccine is up to date. - Social history:: Smoking status: Patient reports the use of cigarette tobacco products, smokes one-half pack cigarettes per day. Vital Signs: 12:51 BP 131 / 89; Pulse 89; Resp 20; Temp 97.7; Pulse Ox 100% on R/A; Weight 58.97 kg; ll1 Height 5 ft. 4 in. (162.56 cm); Pain 7/10; 12:51 Body Mass Index 22.31 (58.97 kg, 162.56 cm) ll1 MDM: 16:30 ED course: Patient eloped the ED prior to my evaluation. [facility] 07/05 12:50 Order name: Basic Metabolic Panel [facility] 07/05 12:50 Order name: CBC with Diff [facility] 07/05 12:50 Order name: LFT's [facility] 07/05 12:50 Order name: Magnesium [facility] 07/05 12:50 Order name: NT PRO-BNP [facility] 07/05 12:50 Order name: PT-INR [facility] 07/05 12:50 Order name: COVID-19 : Document "Date of Symptom Onset" if Symptomatic. [facility] 07/05 12:50 Order name: Flu [facility] 07/05 12:50 Order name: Cardiac monitoring [facility] 07/05 12:50 Order name: EKG - Nurse/Tech [facility] 07/05 12:50 Order name: IV Saline Lock [facility] 07/05 12:50 Order name: Labs collected and sent [facility] 07/05 12:50 Order name: O2 Per Protocol [facility] 07/05 12:50 Order name: O2 Sat Monitoring [facility] Administered Medications: No medications were administered Disposition: 17:05 Co-signature as Attending Physician, Gerry Morton MD. rn Disposition: 07/05/20 15:41 Patient left the facility post triage evaluation and consult. - Patient left due to wait time. Signatures: Dispatcher [employer] EDBassam Paul PA PA jmm Nieto, Roman, MD MD rn Nic Etienne RN RN 1
== END 2020-07-05 15:41 | disposition left against medical advice (07) ==
LOC: ER 12:36
DX: Z02.9 Encounter for administrative examinations, unspecified (principal)
CPT/HCPCS: 99281